=== PATIENT | male | born 1935 | race Caucasian/White ===

== ENCOUNTER 2019-03-07 08:57 | Emergency (ER) | payer OTHER ==
--- OUTSIDE RECORDS SUMMARY | 2019-03-07 09:02 | XMS REPORT ---
:1935 Author Organization [facility] Address [address] [place] [address] Care Team Providers Name Role Phone Unavailable Unavailable Unavailable Payers Payer Name Policy Type Policy Number Effective Date Expiration Date Problems This patient has no known problems. Allergies, Adverse Reactions, Alerts Allergy Allergy Status Severity Reaction(s) Onset Inactive Treating Comments Name Type Date Date Clinician No Known DA Active U 2019-01 Allergies 22 00:00:0 0 Medications This patient has no known medications. Results Test Description Test Time Test Comments Text Results Atomic Results Result Comments GLUCOSE BEDSIDE TESTING 2019-02-25 13:57:00 Test Item Value Reference Range Comments GLUCOSE BEDSIDE TESTING (test code=GLUBED) 155 mg/dL 70-110 GLUCOSE BEDSIDE [id number] 10:46:00 Test Item Value Reference Range Comments GLUCOSE BEDSIDE TESTING (test code=GLUBED) 122 mg/dL 70-110 GLUCOSE BEDSIDE [id number] 08:20:00 Test Item Value Reference Range Comments GLUCOSE BEDSIDE TESTING (test code=GLUBED) 149 mg/dL 70-110 BASIC METABOLIC [id number] 06:18:00 Test Item Value Reference Range Comments SODIUM (test code=NA) 136 mmol/L 134-147 POTASSIUM (test code=K) 4.1 mmol/L 3.4-5.0 CHLORIDE (test code=CL) 98 mmol/L 100-108 CARBON DIOXIDE (test code=CO2) 33 mmol/L 21-32 ANION GAP (test code=GAP) 5.0 GAP calc 4.0-15.0 GLUCOSE (test code=GLU) 117 MG/DL 70-110 BLOOD UREA NITROGEN (test code=BUN) 43 MG/DL 7-18 GLOMERULAR FILTRATION RATE (test code=GFR) 31 estGFR >60 CREATININE (test code=CREAT) 2.2 MG/DL 0.8-1.3 CALCIUM (test code=CA) 8.7 MG/DL 8.5-10.1 [id number] 06:18:00 Test Item Value Reference Range Comments PHOSPHOROUS (test code=PHOS) 3.2 MG/DL 2.5-4.9 [id number] 06:18:00 Test Item Value Reference Range Comments MAGNESIUM (test code=MAG) 2.5 MG/DL 1.8-2.4 HGB [id number] 06:04:00 Test Item Value Reference Range Comments HEMOGLOBIN (test code=HGB) 8.4 G/DL 12.3-15.9 HEMATOCRIT (test code=HCT) 26.8 % 35.8-46.7 GLUCOSE BEDSIDE [id number] 18:27:00 Test Item Value Reference Range Comments GLUCOSE BEDSIDE TESTING (test code=GLUBED) 144 mg/dL 70-110 - XR ABDOMEN 1 [id number] 15:20:00 Name: CHEYENNE MACHADO JR [place] : 1935 Age/S: 83 / M [address] Unit #: [id number] Loc: [place] [address] Phys: Erin Bird MD Acct: [id number] Dis Date: Status: ADM IN PHONE #: [phone] Exam Date: 02/24/2019 1315 FAX #: Reason: CONSTIPATION? EXAMS: CPT: [id number] XR ABDOMEN 1 V 96455 Fluoro Time: DAP (Gy m2): Air Kerma (mGy): EXAMINATION: - XR ABDOMEN 1 V.LOCATION: S 17. HISTORY: CONSTIPATION?. COMPARISON: Abdominal radiographdated 02/14/2019. TECHNIQUE: Single AP view of the abdomen was obtained. FINDINGS: Gastrostomy tube tip is seen in the left upper quadrant. Bowel gas pattern is normal. Multiple pelvic phleboliths are noted. No acute osseous abnormality is seen. IMPRESSION: No acute abdominal abnormality is identified. at 1520 Reported and signed by: Cat Mcgrath M.D. CC: Marybeth Pizano MD; Erin Bird MD PAGE 1 Signed Report Name: CHEYENNE MACHADO JR [place] : 1935 Age/S: 83 / M [address] Unit #: [id number] Loc: [place] [address] Phys: Erin Bird MD Acct: [id number] Dis Date: Status: ADM IN PHONE #: [phone] Exam Date: 02/24/2019 1315 FAX #: Reason : CONSTIPATION? EXAMS: CPT: [id number] XR ABDOMEN 1 V 01882 Fluoro Time : DAP (Gy m2): Air Kerma (mGy): <Continued> Technologist: Indiana Renteria RT(R) Trnscb Date /Time: 02/24/2019 (1520) [id number] Orig Print D/T: S: (1524) PAGE 2 Signed ReportGLUCOSE BEDSIDE [id number] 11:51:00 Test Item Value Reference Range Comments GLUCOSE BEDSIDE TESTING (test code=GLUBED) 108 mg/dL 70-110 GLUCOSE BEDSIDE [id number] 07:50:00 Test Item Value Reference Range Comments GLUCOSE BEDSIDE TESTING (test code=GLUBED) 113 mg/dL 70-110 GLUCOSE BEDSIDE [id number] 17:26:00 Test Item Value Reference Range Comments GLUCOSE BEDSIDE TESTING (test code=GLUBED) 149 mg/dL 70-110 GLUCOSE BEDSIDE [id number] 11:50:00 Test Item Value Reference Range Comments GLUCOSE BEDSIDE TESTING (test code=GLUBED) 187 mg/dL 70-110 GLUCOSE BEDSIDE [id number] 08:44:00 Test Item Value Reference Range Comments GLUCOSE BEDSIDE TESTING (test code=GLUBED) 118 mg/dL 70-110 GLUCOSE BEDSIDE [id number] 17:36:00 Test Item Value Reference Range Comments GLUCOSE BEDSIDE TESTING (test code=GLUBED) 164 mg/dL 70-110 GLUCOSE BEDSIDE [id number] 12:40:00 Test Item Value Reference Range Comments GLUCOSE BEDSIDE TESTING (test code=GLUBED) 146 mg/dL 70-110 GLUCOSE BEDSIDE [id number] 08:06:00 Test Item Value Reference Range Comments GLUCOSE BEDSIDE TESTING (test code=GLUBED) 173 mg/dL 70-110 GLUCOSE BEDSIDE [id number] 06:11:00 Test Item Value Reference Range Comments GLUCOSE BEDSIDE TESTING (test code=GLUBED) 88 mg/dL 70-110 GLUCOSE BEDSIDE [id number] 00:02:00 Test Item Value Reference Range Comments GLUCOSE BEDSIDE TESTING (test code=GLUBED) 111 mg/dL 70-110 GLUCOSE BEDSIDE [id number] 18:27:00 Test Item Value Reference Range Comments GLUCOSE BEDSIDE TESTING (test code=GLUBED) 148 mg/dL 70-110 GLUCOSE BEDSIDE [id number] 05:52:00 Test Item Value Reference Range Comments GLUCOSE BEDSIDE TESTING (test code=GLUBED) 99 mg/dL 70-110 GLUCOSE BEDSIDE [id number] 21:07:00 Test Item Value Reference Range Comments GLUCOSE BEDSIDE TESTING (test code=GLUBED) 147 mg/dL 70-110 GLUCOSE BEDSIDE [id number] 16:45:00 Test Item Value Reference Range Comments GLUCOSE BEDSIDE TESTING (test code=GLUBED) 95 mg/dL 70-110 GLUCOSE BEDSIDE [id number] 13:37:00 Test Item Value Reference Range Comments GLUCOSE BEDSIDE TESTING (test code=GLUBED) 104 mg/dL 70-110 GLUCOSE BEDSIDE [id number] 06:06:00 Test Item Value Reference Range Comments GLUCOSE BEDSIDE TESTING (test code=GLUBED) 124 mg/dL 70-110 GLUCOSE BEDSIDE [id number] 20:49:00 Test Item Value Reference Range Comments GLUCOSE BEDSIDE TESTING (test code=GLUBED) 139 mg/dL 70-110 GLUCOSE BEDSIDE [id number] 16:56:00 Test Item Value Reference Range Comments GLUCOSE BEDSIDE TESTING (test code=GLUBED) 150 mg/dL 70-110 GLUCOSE BEDSIDE [id number] 12:38:00 Test Item Value Reference Range Comments GLUCOSE BEDSIDE TESTING (test code=GLUBED) 116 mg/dL 70-110 GLUCOSE BEDSIDE [id number] 08:10:00 Test Item Value Reference Range Comments GLUCOSE BEDSIDE TESTING (test code=GLUBED) 142 mg/dL 70-110 GLUCOSE BEDSIDE [id number] 21:28:00 Test Item Value Reference Range Comments GLUCOSE BEDSIDE TESTING (test code=GLUBED) 85 mg/dL 70-110 GLUCOSE BEDSIDE [id number] 16:32:00 Test Item Value Reference Range Comments GLUCOSE BEDSIDE TESTING (test code=GLUBED) 158 mg/dL 70-110 GLUCOSE BEDSIDE [id number] 12:21:00 Test Item Value Reference Range Comments GLUCOSE BEDSIDE TESTING (test code=GLUBED) 90 mg/dL 70-110 GLUCOSE BEDSIDE [id number] 08:27:00 Test Item Value Reference Range Comments GLUCOSE BEDSIDE TESTING (test code=GLUBED) 159 mg/dL 70-110 GLUCOSE BEDSIDE [id number] 16:26:00 Test Item Value Reference Range Comments GLUCOSE BEDSIDE TESTING (test code=GLUBED) 195 mg/dL 70-110 GLUCOSE BEDSIDE [id number] 11:20:00 Test Item Value Reference Range Comments GLUCOSE BEDSIDE TESTING (test code=GLUBED) 92 mg/dL 70-110 GLUCOSE BEDSIDE [id number] 07:43:00 Test Item Value Reference Range Comments GLUCOSE BEDSIDE TESTING (test code=GLUBED) 90 mg/dL 70-110 GLUCOSE BEDSIDE [id number] 20:08:00 Test Item Value Reference Range Comments GLUCOSE BEDSIDE TESTING (test code=GLUBED) 143 mg/dL 70-110 GLUCOSE BEDSIDE [id number] 16:41:00 Test Item Value Reference Range Comments GLUCOSE BEDSIDE TESTING (test code=GLUBED) 120 mg/dL 70-110 GLUCOSE BEDSIDE [id number] 12:37:00 Test Item Value Reference Range Comments GLUCOSE BEDSIDE TESTING (test code=GLUBED) 93 mg/dL 70-110 GLUCOSE BEDSIDE [id number] 08:29:00 Test Item Value Reference Range Comments GLUCOSE BEDSIDE TESTING (test code=GLUBED) 98 mg/dL 70-110 GLUCOSE BEDSIDE [id number] 18:03:00 Test Item Value Reference Range Comments GLUCOSE BEDSIDE TESTING (test code=GLUBED) 93 mg/dL 70-110 - XR ABDOMEN 1 [id number] 16:33:00 Name: CARTER SNIDERCHEYENNE [facility] : 1935 Age/S: 83 / M [address] Unit #: [id number] Loc: [place] [address] Phys: Marybeth Pizano MD Acct: [id number] Dis Date: Status: ADM IN PHONE #: [phone] Exam Date: 02/14/2019 1610 FAX #: Reason: ABDOMINAL DISTENSION , INCREASE RISIDUAL FEEDING EXAMS: CPT: [id number] XR ABDOMEN 1 V 64005 Fluoro Time: DAP (Gy m2): Air Kerma (mGy): Location code: B2 KUB Indication: ABDOMINAL DISTENSION, INCREASE RISIDUAL FEEDING FROM PEG Comparison: None. Findings: Cardiomegaly. Organ silhouettes are unremarkable. Gastrostomy tube in place. Intestinal gas pattern is normal. Small contrast in the colon. Disc space narrowing, with moderate spondylosis. No abnormal massesor calcifications seen. Impression: 1. No evidence of acute abdominal pathology. at 1633 Reported and signed by : Get Levin M.D. CC: Marybeth Pizano MD PAGE 1 Signed Report Name: CHEYENNE MACHADO JR [place] : 1935 Age/S: 83 / M [address] Unit #: [id number] Loc: [place] [address] Phys: Marybeth Pizano MD Acct: [id number] Dis Date: Status: ADM IN PHONE #: [phone] Exam Date: 02/14/2019 1610 FAX #: Reason: ABDOMINAL DISTENSION, INCREASE RISIDUAL FEEDING EXAMS: CPT: [id number] XR ABDOMEN 1 V 89330 Fluoro Time: DAP (Gy m2): Air Kerma (mGy): <Continued> Technologist: Paras ReynagaRT(R)(CT); ... Trnscb Date/Time: 02/14/2019 (7323) [email or web address] Orig Print D/T: S: 02/14/2019 (0966) PAGE 2 Signed ReportGLUCOSE BEDSIDE [id number] 11:34 :00 Test Item Value Reference Range Comments GLUCOSE BEDSIDE TESTING (test code=GLUBED) 113 mg/dL 70-110 GLUCOSE BEDSIDE [id number] 08:16:00 Test Item Value Reference Range Comments GLUCOSE BEDSIDE TESTING (test code=GLUBED) 142 mg/dL 70-110 GLUCOSE BEDSIDE [id number] 06:15:00 Test Item Value Reference Range Comments GLUCOSE BEDSIDE TESTING (test code=GLUBED) 95 mg/dL 70-110 BASIC METABOLIC [id number] 06:06:00 Test Item Value Reference Range Comments SODIUM (test code=NA) 138 mmol/L 134-147 POTASSIUM (test code=K) 4.6 mmol/L 3.4-5.0 CHLORIDE (test code=CL) 102 mmol/L 100-108 CARBON DIOXIDE (test code=CO2) 32 mmol/L 21-32 ANION GAP (test code=GAP) 4.0 GAP calc 4.0-15.0 GLUCOSE (test code=GLU) 92 MG/DL 70-110 BLOOD UREA NITROGEN (test code=BUN) 48 MG/DL 7-18 GLOMERULAR FILTRATION RATE (test code=GFR) 32 estGFR >60 CREATININE (test code=CREAT) 2.1 MG/DL 0.8-1.3 CALCIUM (test code=CA) 9.4 MG/DL 8.5-10.1 [id number] 06:06:00 Test Item Value Reference Range Comments PHOSPHOROUS (test code=PHOS) 3.6 MG/DL 2.5-4.9 BASIC METABOLIC [id number] 06:06:00 Test Item Value Reference Range Comments SODIUM (test code=NA) 138 mmol/L 134-147 POTASSIUM (test code=K) 4.6 mmol/L 3.4-5.0 CHLORIDE (test code=CL) 102 mmol/L 100-108 CARBON DIOXIDE (test code=CO2) 32 mmol/L 21-32 ANION GAP (test code=GAP) 4.0 GAP calc 4.0-15.0 GLUCOSE (test code=GLU) 92 MG/DL 70-110 BLOOD UREA NITROGEN (test code=BUN) 48 MG/DL 7-18 GLOMERULAR FILTRATION RATE (test code=GFR) 32 estGFR >60 CREATININE (test code=CREAT) 2.1 MG/DL 0.8-1.3 CALCIUM (test code=CA) 9.4 MG/DL 8.5-10.1 [id number] 06:06:00 Test Item Value Reference Range Comments PHOSPHOROUS (test code=PHOS) 3.6 MG/DL 2.5-4.9 GLUCOSE BEDSIDE [id number] 20:39:00 Test Item Value Reference Range Comments GLUCOSE BEDSIDE TESTING (test code=GLUBED) 165 mg/dL 70-110 GLUCOSE BEDSIDE [id number] 16:26:00 Test Item Value Reference Range Comments GLUCOSE BEDSIDE TESTING (test code=GLUBED) 110 mg/dL 70-110 GLUCOSE BEDSIDE [id number] 11:26:00 Test Item Value Reference Range Comments GLUCOSE BEDSIDE TESTING (test code=GLUBED) 148 mg/dL 70-110 GLUCOSE BEDSIDE [id number] 08:22:00 Test Item Value Reference Range Comments GLUCOSE BEDSIDE TESTING (test code=GLUBED) 130 mg/dL 70-110 GLUCOSE BEDSIDE [id number] 03:19:00 Test Item Value Reference Range Comments GLUCOSE BEDSIDE TESTING (test code=GLUBED) 90 mg/dL 70-110 GLUCOSE BEDSIDE [id number] 11:51:00 Test Item Value Reference Range Comments GLUCOSE BEDSIDE TESTING (test code=GLUBED) 93 mg/dL 70-110 BASIC METABOLIC [id number] 11:10:00 Test Item Value Reference Range Comments SODIUM (test code=NA) 136 mmol/L 134-147 POTASSIUM (test code=K) 4.9 mmol/L 3.4-5.0 CHLORIDE (test code=CL) 102 mmol/L 100-108 CARBON DIOXIDE (test code=CO2) 30 mmol/L 21-32 ANION GAP (test code=GAP) 4.0 GAP calc 4.0-15.0 GLUCOSE (test code=GLU) 113 MG/DL 70-110 BLOOD UREA NITROGEN (test code=BUN) 53 MG/DL 7-18 GLOMERULAR FILTRATION RATE (test code=GFR) 29 estGFR >60 CREATININE (test code=CREAT) 2.3 MG/DL 0.8-1.3 CALCIUM (test code=CA) 9.3 MG/DL 8.5-10.1 GLUCOSE BEDSIDE [id number] 03:09:00 Test Item Value Reference Range Comments GLUCOSE BEDSIDE TESTING (test code=GLUBED) 87 mg/dL 70-110 GLUCOSE BEDSIDE [id number] 08:02:00 Test Item Value Reference Range Comments GLUCOSE BEDSIDE TESTING (test code=GLUBED) 158 mg/dL 70-110 GLUCOSE BEDSIDE [id number] 08:01:00 Test Item Value Reference Range Comments GLUCOSE BEDSIDE TESTING (test code=GLUBED) 163 mg/dL 70-110 GLUCOSE BEDSIDE [id number] 23:54:00 Test Item Value Reference Range Comments GLUCOSE BEDSIDE TESTING (test code=GLUBED) 135 mg/dL 70-110 GLUCOSE BEDSIDE [id number] 16:42:00 Test Item Value Reference Range Comments GLUCOSE BEDSIDE TESTING (test code=GLUBED) 145 mg/dL 70-110 GLUCOSE BEDSIDE [id number] 08:24:00 Test Item Value Reference Range Comments GLUCOSE BEDSIDE TESTING (test code=GLUBED) 137 mg/dL 70-110 GLUCOSE BEDSIDE [id number] 09:16:00 Test Item Value Reference Range Comments GLUCOSE BEDSIDE TESTING (test code=GLUBED) 128 mg/dL 70-110 BASIC METABOLIC [id number] 06:53:00 Test Item Value Reference Range Comments SODIUM (test code=NA) 143 mmol/L 134-147 POTASSIUM (test code=K) 4.2 mmol/L 3.4-5.0 CHLORIDE (test code=CL) 112 mmol/L 100-108 CARBON DIOXIDE (test code=CO2) 24 mmol/L 21-32 ANION GAP (test code=GAP) 7.0 GAP calc 4.0-15.0 GLUCOSE (test code=GLU) 134 MG/DL 70-110 BLOOD UREA NITROGEN (test code=BUN) 36 MG/DL 7-18 GLOMERULAR FILTRATION RATE (test code=GFR) 32 estGFR >60 CREATININE (test code=CREAT) 2.1 MG/DL 0.8-1.3 CALCIUM (test code=CA) 8.8 MG/DL 8.5-10.1 GLUCOSE BEDSIDE [id number] 01:53:00 Test Item Value Reference Range Comments GLUCOSE BEDSIDE TESTING (test code=GLUBED) 132 mg/dL 70-110 - INS GASTRO TUBE [id number] 15:31:00 Name: CHEYENNE MACHADO JR [facility] : 1935 Age/S: 83 / M [address] Unit #: [id number] Loc: [place] [address] Phys: Cat Mcgrath MD Acct: [id number] Dis Date: Status : ADM IN PHONE #: [phone] Exam Date: 02/06/2019 1520 FAX #: Reason: MEDICATION EXAMS: CPT: [id number] INS GASTRO TUBE PERC 19594 Fluoro Time: 4:11 DAP (Gy m2): 10.69 Air Kerma (mGy): 45 EXAMINATION: PERCUTANEOUS GASTROSTOMY CATHETER PLACEMENT. LOCATION: S 17. HISTORY: CVA and dysphagia. SEDATION: The patient did not require conscious sedation for the procedure. He received fentanyl 25 mg IV. RADIATION DOSE: Total reference air kerma 45 mGy. ANTIBIOTICS: Yes. The patient was given Cefazolin 1 g IV. TECHNIQUE: The risks, benefits, and alternatives were discussed and informed consent was obtained. Prior to beginning the procedure, Cannon Protocol was used to confirm the patient' s identity and planned procedure. Maximum sterile barriers including cap , mask, hand hygiene, sterile gloves, sterile gown, large sterile drape and cutaneous antisepsis were used. The skin over the stomach was sterilely prepped, draped, and infiltrated with lidocaine and 1 mg of intravenous glucagon was administered. An NG tube was advanced into the stomach under fluoroscopy and was then used to inject air to distend the stomach. Fluoroscopy was used to determine a safe tract to the stomach. The stomach was accessed under fluoroscopic guidance and three gastropexybuttons were placed. The stomach was then accessed with an 18-gauge needle. The tractwas dilated over a guidewire and an 18 American TANIYA gastrostomy catheter was advanced intothe stomach through a peel-away sheath. The catheter was secured to the skin and connected togravity drainage. ESTIMATED BLOOD LOSS: Less than 30 milliliters. COMPLICATIONS: None. DISCHARGED TO: Inpatient unit. FINDINGS: Final fluoroscopic images demonstrate the gastrostomy catheter with its tip in the body of the stomach. No complications are identified. IMPRESSION: Successful placement of a gastrostomy catheter with gastropexy. PAGE 1 Signed Report (CONTINUED) Name: [facility] [place] : 6Age/ S: 83 / M [address] [facility] Unit #: [id number] Loc: [place] [address] Phys: Cat Mcgrath MD Acct: [id number] Dis Date: Status: ADM IN PHONE#: [phone] Exam Date: 02/06/2019 1520 FAX #: Reason: MEDICATION EXAMS: CPT: [id number] INS GASTRO TUBE PERC 19134 Fluoro Time:4:11 DAP (Gy m2): 10.69 Air Kerma (mGy): 45 <Continued> PLAN:The gastrostomy catheter will remain to gravity drainage overnight. It may be used for administration of liquid medications. The tube should be capped after administration of the medication for an hour and then reconnected to gravity drainage. The output should be recorded every shift. The patient will be examined in the morning prior to clearing the catheter for usage for tube feeds. Feedings will likely start in the day and be advanced to goal before discharge. The gastropexy buttons will fall off on their own in approximately 2weeks. at 1531 Reported and signed by: Cat Mcgrath M.D. CC: Marybeth Pizano MD; Cat Mcgrath MD PAGE 2 Signed Report Name: CHEYENNE MACHADO JR MARTI [place] : 1935 Age/S: 83 / M [address] Unit # : [id number] Loc: [place] [address] Phys: Cat Mcgrath MD Acct: [id number] Dis Date: Status: ADM IN PHONE #: [phone] Exam Date: 02/06/2019 1520 FAX #: Reason: MEDICATION EXAMS: CPT: [id number] INS GASTRO TUBE PERC 82616 Fluoro Time: 4:11 DAP ( Gy m2): 10.69 Air Kerma (mGy): 45 <Continued> Technologist: RT Elvin(R) Trnscb Date/Time: 02/06/2019 (1531) [id number] PAGE 3 Signed Report - INS GASTRO TUBE [id number] 15:31:00 Name: CHEYENNE MACHADO JR MARTI [place] : 1935 Age/S: 83 / M [address] Unit #: [id number] Loc: [place] [address] Phys: Cat Mcgrath MD Acct: [id number] Dis Date: Status : ADM IN PHONE #: [phone] Exam Date: 02/06/2019 1520 FAX #: Reason: MEDICATION EXAMS: CPT: [id number] INS GASTRO TUBE PERC 87296 Fluoro Time: 4:11 DAP (Gy m2): 10.69 Air Kerma (mGy): 45 EXAMINATION: PERCUTANEOUS GASTROSTOMY CATHETER PLACEMENT. LOCATION: S 17. HISTORY: CVA and dysphagia. SEDATION: The patient did not require conscious sedation for the procedure. He received fentanyl 25 mg IV. RADIATION DOSE: Total reference air kerma 45 mGy. ANTIBIOTICS: Yes. The patient was given Cefazolin 1 g IV. TECHNIQUE: The risks, benefits, and alternatives were discussed and informed consent was obtained. Prior to beginning the procedure, Cannon Protocol was used to confirm the patient' s identity and planned procedure. Maximum sterile barriers including cap , mask, hand hygiene, sterile gloves, sterile gown, large sterile drape and cutaneous antisepsis were used. The skin over the stomach was sterilely prepped, draped, and infiltrated with lidocaine and 1 mg of intravenous glucagon was administered. An NG tube was advanced into the stomach under fluoroscopy and was then used to inject air to distend the stomach. Fluoroscopy was used to determine a safe tract to the stomach. The stomach was accessed under fluoroscopic guidance and three gastropexybuttons were placed. The stomach was then accessed with an 18-gauge needle. The tractwas dilated over a guidewire and an 18 American TANIYA gastrostomy catheter was advanced intothe stomach through a peel-away sheath. The catheter was secured to the skin and connected togravity drainage. ESTIMATED BLOOD LOSS: Less than 30 milliliters. COMPLICATIONS: None. DISCHARGED TO: Inpatient unit. FINDINGS: Final fluoroscopic images demonstrate the gastrostomy catheter with its tip in the body of the stomach. No complications are identified. IMPRESSION: Successful placement of a gastrostomy catheter with gastropexy. PAGE 1 Signed Report (CONTINUED) Name: CHEYENNE [facility]O [facility] : 6Age/ S: 83 / M [address] [facility] Unit #: [id number] Loc: [place] [address] Phys: Cat Mcgrath MD Acct: [id number] Dis Date: Status: ADM IN PHONE#: [phone] Exam Date: 02/06/2019 1520 FAX #: Reason: MEDICATION EXAMS: CPT: [id number] INS GASTRO TUBE PERC 06167 Fluoro Time:4:11 DAP (Gy m2): 10.69 Air Kerma (mGy): 45 <Continued> PLAN:The gastrostomy catheter will remain to gravity drainage overnight. It may be used for administration of liquid medications. The tube should be capped after administration of the medication for an hour and then reconnected to gravity drainage. The output should be recorded every shift. The patient will be examined in the morning prior to clearing the catheter for usage for tube feeds. Feedings will likely start in the day and be advanced to goal before discharge. The gastropexy buttons will fall off on their own in approximately 2weeks. at 1531 Reported and signed by: Cat Mcgrath M.D. CC: Marybeth Pizano MD; Cat Mcgrath MD PAGE 2 Signed Report Name: CARTER SNIDERCHEYENNE [place] : 1935 Age/S: 83 /M [address] Unit #: [id number] Loc: [place] [address] Phys: Cat Mcgrath MD Acct: [id number] Dis Date: Status: ADM IN PHONE #: [phone] Exam Date: 02/06/2019 1520 FAX #: Reason: MEDICATION EXAMS: CPT: [id number] INS GASTRO TUBE PERC 45469 Fluoro Time: 4:11 DAP (Gy m2): 10.69 Air Kerma (mGy): 45 <Continued> Technologist : RT Elvin(R) Trnscb Date/Time: 02/06/2019 (1531) [email or web address] Orig Print D/T: S: 02/06/2019 (1534) PAGE 3 Signed Report- [facility] [id number] 15:22:00 Name: DWAIN MACHADO JRSesar [place] : 1935 Age/S: 83 / M [address] Unit #: [id number] Loc: [place] [address] Phys: Marybeth Pizano MD Acct: [id number] Dis Date: Status : ADM IN PHONE #: [phone] Exam Date: 02/06/2019 1441 FAX #: Reason: IV access EXAMS: CPT: [id number] US GUIDANCE VASC ACCESS 68295 EXAMINATION: NON-TUNNELED PERIPHERAL VENOUS CATHETER PLACEMENT. LOCATION: S 17. HISTORY: Dysphagia and lack of IV access. SEDATION: The patient did not require conscious sedation for the procedure. TECHNIQUE: The risks, benefits, and alternatives were discussed and informed consent was obtained. Prior to beginning the procedure, UniversalProtocol was used to confirm the patient's identity and planned procedure. Sterile barriers including cap, mask, hand hygiene, sterile gloves, sterile drape and cutaneous antisepsis were used. The skin over the left brachial vein was sterilely prepped, draped, and infiltrated with lidocaine. Prior to the procedure, the target vessel was evaluated by ultrasound. An image of the patent vessel was recorded and saved to PACS. After sterile prep, this vessel was accessed with a micropuncture needle using real-time ultrasound guidance. A short 10 cm 5 American catheter was then passed into the left arm over a guidewire. The catheter was flushed and secured in place. A sterile dressing was applied. ESTIMATED BLOOD LOSS: Less than 5 milliliters. COMPLICATIONS: None. DISCHARGED TO: Inpatient unit. FINDINGS: Ultrasound demonstrates a patent left brachial vein. IMPRESSION: Successful non-tunneled peripheral venous catheter placementvia the left brachial vein. PLAN: The catheter is ready for immediate use. When treatment is completed, this catheter can be removed at the bedside according to standard hospital protocol. PAGE 1 Signed Report ( CONTINUED) Name: CHEYENNE MACHADO JR [facility] Campus : 1935 Age/S: 83 / M [address] [facility] Unit #: [id number] Loc: [place] [address] Phys : Marybeth Pizano MD Acct: [id number] Dis Date: Status: ADM IN PHONE #: [phone] Exam Date: 02/06/2019 1441 FAX #: Reason: IV access EXAMS:CPT: [id number] US GUIDANCE VASC ACCESS [id number] <Continued> at 1522 Reported and signed by: Cat Mcgrath M.D. CC: Marybeth Romeo Technologist: Tierra Jo, RT(R),WILL(AB) Trnscb Date/Time: 02/06/2019 (1522) SurinderPR7 PAGE 2 Signed Report Name: CHEYENNE MACHADO JR : 1935 Age/S: 83 / M [address] [address] Unit #: [id number] Loc: [place] [address] Phys: Marybeth Pizano MD Acct: [id number] Dis Date: Status: ADM IN PHONE #: [phone] Exam Date: 02/06/2019 1441 FAX #: Reason: IV access EXAMS: CPT: [id number] US GUIDANCE VASC ACCESS 75549 <Continued> Orig Print D/T: S: 02/06/2019 (6343) Probe: PAGE 3 Signed ReportGLUCOSE BEDSIDE [id number] 12:29:00 Test Item Value Reference Range Comments GLUCOSE BEDSIDE TESTING (test code=GLUBED) 116 mg/dL 70-110 GLUCOSE BEDSIDE [id number] 08:06:00 Test Item Value Reference Range Comments GLUCOSE BEDSIDE TESTING (test code=GLUBED) 144 mg/dL 70-110 BASIC METABOLIC [id number] 07:28:00 Test Item Value Reference Range Comments SODIUM (test code=NA) 142 mmol/L 134-147 POTASSIUM (test code=K) 4.4 mmol/L 3.4-5.0 CHLORIDE (test code=CL) 113 mmol/L 100-108 CARBON DIOXIDE (test code=CO2) 20 mmol/L 21-32 ANION GAP (test code=GAP) 9.0 GAP calc 4.0-15.0 GLUCOSE (test code=GLU) 153 MG/DL 70-110 BLOOD UREA NITROGEN (test code=BUN) 35 MG/DL 7-18 GLOMERULAR FILTRATION RATE (test code=GFR) 31 estGFR >60 CREATININE (test code=CREAT) 2.2 MG/DL 0.8-1.3 CALCIUM (test code=CA) 8.8 MG/DL 8.5-10.1 [id number] 07:28:00 Test Item Value Reference Range Comments PHOSPHOROUS (test code=PHOS) 3.9 MG/DL 2.5-4.9 [id number] 07:28:00 Test Item Value Reference Range Comments MAGNESIUM (test code=MAG) 2.1 MG/DL 1.8-2.4 GLUCOSE BEDSIDE [id number] 17:09:00 Test Item Value Reference Range Comments GLUCOSE BEDSIDE TESTING (test code=GLUBED) 152 mg/dL 70-110 GLUCOSE BEDSIDE [id number] 12:31:00 Test Item Value Reference Range Comments GLUCOSE BEDSIDE TESTING (test code=GLUBED) 152 mg/dL 70-110 GLUCOSE BEDSIDE [id number] 08:26:00 Test Item Value Reference Range Comments GLUCOSE BEDSIDE TESTING (test code=GLUBED) 156 mg/dL 70-110 BASIC METABOLIC [id number] 07:13:00 Test Item Value Reference Range Comments SODIUM (test code=NA) 143 mmol/L 134-147 POTASSIUM (test code=K) 4.3 mmol/L 3.4-5.0 CHLORIDE (test code=CL) 112 mmol/L 100-108 CARBON DIOXIDE (test code=CO2) 21 mmol/L 21-32 ANION GAP (test code=GAP) 10.0 GAP calc 4.0-15.0 GLUCOSE (test code=GLU) 146 MG/DL 70-110 BLOOD UREA NITROGEN (test code=BUN) 36 MG/DL 7-18 GLOMERULAR FILTRATION RATE (test code=GFR) 29 estGFR >60 CREATININE (test code=CREAT) 2.3 MG/DL 0.8-1.3 CALCIUM (test code=CA) 9.0 MG/DL 8.5-10.1 CBC W/AUTO [id number] 06:40:00 Test Item Value Reference Range Comments WHITE BLOOD CELL (test 9.0 K/mm3 3.5-11.0 code=WBC) RED BLOOD CELL (test code=RBC) 2.62 M/mm3 4.70-6.10 HEMOGLOBIN (test code=HGB) 8.7 G/DL 12.3-15.9 HEMATOCRIT (test code=HCT) 28.3 % 35.8-46.7 MEAN CELL VOLUME (test 108.0 Fl 86.3-98.9 code=MCV) MEAN CELL HGB (test code=MCH) 33.2 pg 28.9-34.4 MEAN CELL HGB CONCETRATION 30.7 G/DL 32.1-34.5 (test code=MCHC) RED CELL DISTRIBUTION WIDTH 13.5 SD 11.5-14.5 (test code=RDW) PLATELET COUNT (test code=PLT) 277.0 K/mm3 150-450 MEAN PLATELET VOLUME (test 10.50 fL 7.0-9.6 code=MPV) NEUTROPHIL % (test code=NT%) 82.8 % 40-76 LYMPHOCYTE % (test code=LY%) 9.0 % 20.5-51.1 MONOCYTE % (test code=MO%) 6.7 % 1.7-9.3 EOSINOPHIL % (test code=EO%) 0.9 % 0.0-6.0 BASOPHIL % (test code=BA%) 0.6 % 0.0-2.0 NEUTROPHIL # (test code=NT#) 7.42 K/mm3 1.8-7.6 LYMPHOCYTE # (test code=LY#) 0.8 K/mm3 0.6-3.0 MONOCYTE # (test code=MO#) 0.6 K/mm3 0.2-1.5 EOSINOPHIL # (test code=EO#) 0.1 K/mm3 0.0-0.4 BASOPHIL # (test code=BA#) 0.1 K/mm3 0.0-0.2 MANUAL DIFF REQUIRED (test NO DIFF/SCN CRITERIA SLIDE REVIEW CONSISTANT code=MDIFF) WITH AUTO DIFFERENTIAL. BASIC METABOLIC [id number] 06:35:00 Test Item Value Reference Range Comments SODIUM (test code=NA) mmol/L 134-147 POTASSIUM (test code=K) mmol/L 3.4-5.0 CHLORIDE (test code=CL) mmol/L 100-108 CARBON DIOXIDE (test code=CO2) 21 mmol/L 21-32 ANION GAP (test code=GAP) GAP calc 4.0-15.0 GLUCOSE (test code=GLU) 146 MG/DL 70-110 BLOOD UREA NITROGEN (test code=BUN) 36 MG/DL 7-18 GLOMERULAR FILTRATION RATE (test code=GFR) estGFR >60 CREATININE (test code=CREAT) MG/DL 0.8-1.3 CALCIUM (test code=CA) 9.0 MG/DL 8.5-10.1 PROTHROMBIN [id number] 06:29:00 Test Item Value Reference Range Comments PT PATIENT (test code=PTP) 14.9 SECONDS 9.3-12.9 INTERNATIONAL NORMAL RATIO (test code=INR) 1.29 INR Unit 0.8-1.2 CBC W/AUTO [id number] 06:24:00 Test Item Value Reference Range Comments WHITE BLOOD CELL (test code=WBC) 9.0 K/mm3 3.5-11.0 RED BLOOD CELL (test code=RBC) 2.62 M/mm3 4.70-6.10 HEMOGLOBIN (test code=HGB) 8.7 G/DL 12.3-15.9 HEMATOCRIT (test code=HCT) 28.3 % 35.8-46.7 MEAN CELL VOLUME (test code=MCV) 108.0 Fl 86.3-98.9 MEAN CELL HGB (test code=MCH) 33.2 pg 28.9-34.4 MEAN CELL HGB CONCETRATION (test code=MCHC) 30.7 G/DL 32.1-34.5 RED CELL DISTRIBUTION WIDTH (test code=RDW) 13.5 SD 11.5-14.5 PLATELET COUNT (test code=PLT) 277.0 K/mm3 150-450 MEAN PLATELET VOLUME (test code=MPV) 10.50 fL 7.0-9.6 NEUTROPHIL % (test code=NT%) % 40-76 LYMPHOCYTE % (test code=LY%) % 20.5-51.1 MONOCYTE % (test code=MO%) % 1.7-9.3 EOSINOPHIL % (test code=EO%) % 0.0-6.0 BASOPHIL % (test code=BA%) % 0.0-2.0 NEUTROPHIL # (test code=NT#) K/mm3 1.8-7.6 LYMPHOCYTE # (test code=LY#) K/mm3 0.6-3.0 MONOCYTE # (test code=MO#) K/mm3 0.2-1.5 EOSINOPHIL # (test code=EO#) K/mm3 0.0-0.4 BASOPHIL # (test code=BA#) K/mm3 0.0-0.2 MANUAL DIFF REQUIRED (test code=MDIFF) DIFF/SCN CRITERIA UA RFLX MICR CULT IF [id number] 01:25:00 Test Item Value Reference Range Comments UA COLOR (test code=COLU) YELLOW discript YEL/STRAW UA APPEARANCE (test code=APPU) CLEAR discript CLEAR UA GLUCOSE DIPSTICK (test code=DGLUU) NEGATIVE mg/dL NEG UA BILIRUBIN DIPSTICK (test code=BILU) NEGATIVE mg/dL NEG UA KETONE DIPSTICK (test code=KETU) NEGATIVE mg/dL NEG UA SPECIFIC GRAVITY (test code=SGU) >=1.030 SG 1.005-1.030 UA BLOOD DIPSTICK (test code=VENECIA) TRACE mg/DL NEG UA PH DIPSTICK (test code=BOB) 5.5 pH UNITS 5.0-7.0 UA PROTEIN DIPSTICK (test code=PROU) 3+ mg/dL NEG UA UROBILINIOGEN DIPSTICK (test 0.2 mg/dL <2.0 code=URO) UA NITRITE DIPSTICK (test code=ISRAEL) NEGATIVE SCREEN NEG UA LEUKOCYTE ESTERASE DIPSTICK (test NEGATIVE Leuk/mcL NEGATIVE code=LEUU) UA WBC (test code=WBCU) 1-3 #WBC/HPF 0-3 UA RBC (test code=RBCU) 1-3 #RBC/HPF 0-3 UA AMORPHOUS SEDIMENT (test code=AMORU) 2+ NONE SEEN UA CULTURE NEEDED? (test code=UACULT) NO, WBC<10 Criteria Culture CHK SOURCE OF URINE: STRAIGHT CATHETERIndication for culture: Delirium-if no other srcUA RFLX MICR CULT IF [id number] 01:22:00 Test Item Value Reference Range Comments UA COLOR (test code=COLU) YELLOW discript YEL/STRAW UA APPEARANCE (test code=APPU) CLEAR discript CLEAR UA GLUCOSE DIPSTICK (test code=DGLUU) NEGATIVE mg/dL NEG UA BILIRUBIN DIPSTICK (test code=BILU) NEGATIVE mg/dL NEG UA KETONE DIPSTICK (test code=KETU) NEGATIVE mg/dL NEG UA SPECIFIC GRAVITY (test code=SGU) >=1.030 SG 1.005-1.030 UA BLOOD DIPSTICK (test code=VENECIA) TRACE mg/DL NEG UA PH DIPSTICK (test code=BOB) 5.5 pH UNITS 5.0-7.0 UA PROTEIN DIPSTICK (test code=PROU) 3+ mg/dL NEG UA UROBILINIOGEN DIPSTICK (test code=URO) 0.2 mg/dL <2.0 UA NITRITE DIPSTICK (test code=ISRAEL) NEGATIVE SCREEN NEG UA LEUKOCYTE ESTERASE DIPSTICK (test NEGATIVE Leuk/mcL NEGATIVE code=LEUU) UA CULTURE NEEDED? (test code=UACULT) Criteria Culture CHK SOURCE OF URINE: STRAIGHT CATHETERIndication for culture: Delirium-if no other src- CT ABD PELVIS W/O [id number] 17:12:00 Name: CHEYENNE MACHADO JR [facility] : 1935 Age/S: 83 / M [address] [address] Unit #: [id number] Loc: [place] [address] Phys: Angeles Vogt MD Acct: [id number] Dis Date: Status: ADM IN PHONE #: [phone] Exam Date: 02/04/2019 1701 FAX #: Reason: PEG TUBE PREPARATION. EXAMS: CPT: [id number] CT ABD PELVIS W/O CONT 94382 HISTORY: PEG TUBE PREPARATION. EXAM: CT abdomen and pelvis without IV contrast. Location code: S17 TECHNIQUE:Contrast - No IV contrast was given, oral contrast was given Noncontrast phase - abdomen and pelvis including all of kidneys Reconstructions - coronal and sagittal planes One or more of the following dose reduction techniques were used: Automated exposure control , adjustment of the mA and/or kV according to patient size, and/or utilization of iterative reconstruction technique. COMPARISON: None FINDINGS: Statements: Lack of intravenous contrast compromises evaluation of abdominopelvic organs and vasculature. Lack of oral contrast compromises evaluation of bowel. Evaluation is further limited by motion artifact in the mid abdomen and arms down by side. Thoracic: There are small, bilateral pleural effusions, right greater than left with associated bilateral lower lobe airspace disease. A 1.1 cm calcified granuloma is present in the right middle lobe (image 8, series 2). There is mild to moderate cardiomegaly and scattered coronary artery calcifications. Trace pericardial fluid is present. No significant pericardial effusion. Hepatobiliary: The liver is normal without focal lesion. There is a dominant high density 2.4 cm stone present within the gallbladder. No surrounding wall thickening or inflammatory changes are identified. No biliary dilation. Pancreas: Normal. Spleen: Normal. Adrenals: Mild bilateral adrenal thickening without discrete nodule or mass seen, nonspecific but may be secondary to hyperplasia. Genitourinary: The kidneys are normal in size and contour without evidence of nephrolithiasis or hydronephrosis. There is a 1.7 cm hyperdense structure in the upper pole of the left kidney posteriorly (image 30, series 2), measuring approximately 7 the Hounsfield units, PAGE 1 Signed Report (CONTINUED) Name: CHEYENNE MACHADO JR : 1935 Age/S: 83 / M [address] [address] Unit #: [id number] Loc: [place] [address] Phys: Angeles Vogt MD Acct: [id number] Dis Date: Status: ADM IN PHONE #: [phone] Exam Date: 2018 1701 FAX #: Reason: PEG TUBE PREPARATION. EXAMS: CPT: [id number] CT ABD PELVIS W/O CONT 50342 <Continued> consistent with hyperdense cysts. No suspicious renal mass seen. Urinary bladder is markedly distended but grossly normal. Reproductive organs are unremarkable. Gastrointestinal: The stomach appears clear of the left hepatic lobe and colon anteriorly, in preparation for gastrostomy tube placement. No bowel obstruction or perienteric inflammation. Mild high density contrast material is present within loops of small bowel in the left mid abdomen, likely from recent barium swallow study performed earlier today. There is a moderate to large volume of stool overlying the rectum. Vascular: Heavy atherosclerotic calcifications of the abdominal aorta and all of its distal branch vessels. No evidence of aortic aneurysm. Lymphatics: No enlarged lymph nodes by CT size criteria. Bones/Soft Tissues: Moderate, multilevel degenerative changes of the spine are noted. No definite acute osseous fracture, although evaluation is limited due to motion artifact. No significant soft tissue abnormality. Peritoneum/Other: No extraluminal air. No extraluminal fluid. IMPRESSION: Limited evaluation dueto motion artifact. 1. No acute abdominopelvic process. Normal anatomic positioning of major abdominal organs and preparation for gastrostomy tube placement. 2. Smallbilateral pleural effusions with associated bilateral lower lobe airspace disease likely atelectasis. Superimposed pneumonia not entirely excluded. 3. Cholelithiasis without CT evidence of acute cholecystitis. at 1712 * * Reported and signed by: Angeles Vogt M.D. CC: Marybeth Pizano MD; Angeles Vogt MD Technologist:RENEE DOBBINS, RT(R)(CT)(MR) CTDI: DLP: Trnscb Date/Time: 02/04/2019 (1712) t.SDR.KW9 Orig Print D/T: S: 02/04/2019 (5565) PAGE 2 Signed Report- XR SWLW FUNC W/C [id number] 15:31:00 Name : CARTER SNIDERCHEYENNE [facility] : Age/S: 83 / M [address] Unit #: [id number] Loc: [place] [address] Phys: Marybeth Pizano MD Acct: [id number] Dis Date: Status: ADM IN PHONE #: [phone] Exam Date: 02/04/2019 1400 FAX #: Reason: SPEECH EVAL EXAMS: CPT: [id number] XR SWLW FUNC W/C V 78439 Fluoro Time: 60 DAP (Gy m2): Air Kerma (mGy): EXAM: - XR SWLW FUNC W/C V HISTORY: 83 years old Male presents for SPEECH EVAL TECHNIQUE: A video swallowing exam with fluoroscopy was performed in conjunction with Speech Pathology. Multiple barium consistencieswere administered under intermittent fluoroscopic evaluation. COMPARISON: None Fluoroscopy time: 60 seconds. Cumulative dose : 1.24 mGy FINDINGS: There was laryngeal penetration and silent aspiration into both thin liquid barium and barium-coated honey thickened nectar. Some tracheal clearance of barium material with coughing and swallowing when instructed. Given this, no additional barium- consistencies were administered. IMPRESSION: Silent aspiration of both thin liquid barium and honey thickened nectar. Please see separate report by Speech Pathology for additional findings and recommendations of the Speech Therapist. FOLLOW-UP RECOMMENDATIONS: Per clinical team. at 1531 Reported and signed by: Angeles Vogt M.D. CC: Marybeth Pizano MD PAGE 1 Signed Report Name: PADMINI MACHADO JR : 1935 Age/S: 83 / M [address] [address] Unit #: [id number] Loc: [place] [address] Phys: Jose Alejandro Pizano Acct: [id number] Dis Date: Status: ADM IN PHONE #: [phone] Exam Date: 02/04/2019 1400 FAX #: Reason: SPEECH EVALEXAMS: CPT: [id number] XR SWLW FUNC W/C V 08852 Fluoro Time: 60 DAP (Gy m2): Air Kerma (mGy) : <Continued> Technologist: Beckie Linda RT(R) Trnscb Date/Time: 02/04/2019 (6301) [id number] Orig Print D/T: S: 02/04/2019 (2382) PAGE 2 Signed ReportGLUCOSE BEDSIDE [id number] 11:55:00 Test Item Value Reference Range Comments GLUCOSE BEDSIDE TESTING (test code=GLUBED) 100 mg/dL 70-110 VANCOMYCIN [id number] 10:10:00 Test Item Value Reference Range Comments VANCOMYCIN TROUGH (test code=VANCT) 18.3 mcG/ML 10-20 GLUCOSE BEDSIDE [id number] 08:00:00 Test Item Value Reference Range Comments GLUCOSE BEDSIDE TESTING (test code=GLUBED) 88 mg/dL 70-110 GLUCOSE BEDSIDE [id number] 05:58:00 Test Item Value Reference Range Comments GLUCOSE BEDSIDE TESTING (test code=GLUBED) 94 mg/dL 70-110 - XR CHEST 1 [id number] 21:59:00 Name: CHEYENNE MACHADO JR : 1935 Age/S: 83 / M [address] [address] Unit #: [id number] Loc: [place] [address] Phys: Concha Kc MD Acct: [id number] Dis Date: Status: ADM IN PHONE #: [phone] Exam Date: 02/03/2019 2158 FAX #: Reason: R/O ASPIRATION EXAMS: CPT: [id number] XR CHEST 1 V 42372 Fluoro Time: DAP (Gy m2): Air Kerma (mGy): LOCATION: T18 EXAM: CHEST 1 VIEW INDICATION: R/O ASPIRATION COMPARISON: Chest x-ray January 31, 2019 TECHNIQUE: AP chest radiograph. FINDINGS: Diffuse bilateral airspace opacity again noted without significant change. NG tube removed. No pleural effusion. Calcification of the aorta. Heart is normal in size. Bones and peripheral soft tissues are unchanged. IMPRESSION: Diffuse bilateral airspace opacity without significant change. at 2159 Reported and signed by: Seth Mendoza M.D. CC: Marybeth Pizano MD; Kymberly BARRETO; Concha Kc MD PAGE 1 Signed Report Name: CHEYENNE MAHCADO JR : 1935 Age/S: 83 / M [address] [address] Unit #: [id number] Loc: [place] [address] Phys: Concha Kc MD Acct: [id number] Dis Date: Status: ADM IN PHONE #: [phone] Exam Date: 2018 FAX #: Reason: R/O ASPIRATION EXAMS: CPT: [id number] XR CHEST 1 V 97560 Fluoro Time: DAP (Gy m2): Air Kerma (mGy): < Continued> Technologist: Peter Kim, RT(R)(CT); ... Trnscb Date/Time: 02/03/2019 (2158) t.SDR.JP19 Orig Print D/T: S: 02/03/2019 (2201) PAGE 2 Signed ReportGLUCOSE BEDSIDE [id number] 21:58:00 Test Item Value Reference Range Comments GLUCOSE BEDSIDE TESTING (test code=GLUBED) 123 mg/dL 70-110 GLUCOSE BEDSIDE [id number] 18:07:00 Test Item Value Reference Range Comments GLUCOSE BEDSIDE TESTING (test code=GLUBED) 144 mg/dL 70-110 RENAL FUNCTION [id number] 16:41:00 Test Item Value Reference Range Comments SODIUM (test code=NA) 144 mmol/L 134-147 POTASSIUM (test code=K) 4.3 mmol/L 3.4-5.0 CHLORIDE (test code=CL) 112 mmol/L 100-108 CARBON DIOXIDE (test code=CO2) 24 mmol/L 21-32 GLUCOSE (test code=GLU) 140 MG/DL 70-110 BLOOD UREA NITROGEN (test code=BUN) 38 MG/DL 7-18 GLOMERULAR FILTRATION RATE (test code=GFR) 29 estGFR >60 CREATININE (test code=CREAT) 2.3 MG/DL 0.8-1.3 ALBUMIN (test code=ALB) 2.5 G/DL 3.4-5.0 CALCIUM (test code=CA) 8.1 MG/DL 8.5-10.1 PHOSPHOROUS (test code=PHOS) 3.8 MG/DL 2.5-4.9 GLUCOSE BEDSIDE [id number] 11:23:00 Test Item Value Reference Range Comments GLUCOSE BEDSIDE TESTING (test code=GLUBED) 133 mg/dL 70-110 - CT HEAD/BRAIN W/O [id number] 08:31:00 Name: CHEYENNE MACHADO JR [facility] : 1935 Age/S: 83 / M [address] Unit #: [id number] Loc: [place] [address] Phys: Leia Aldana MD Acct: [id number] Dis Date: Status : ADM IN PHONE #: [phone] Exam Date: 02/03/2019 0657 FAX #: Reason: AMS, h/o recent stroke EXAMS: CPT: [id number] CT HEAD/BRAIN W/O CONT 12244 Dictation location: L11. CT HEAD WITHOUT CONTRAST. HISTORY: AMS, h/o recent stroke COMPARISON: No comparison is available. TECHNIQUE: Axial CT images of thehead were obtained with coronal and/or sagittal reformatted views. Automated exposure control, iterative reconstruction technique, and/or adjustment of mA and/or kV according to patient's size was utilized for radiation dose reduction. IV CONTRAST: None. FINDINGS: Again noted is an evolving subacute left temporal lobe infarct with petechial areas of hemorrhage versus laminar necrosis. The chronic right subdural hematoma measuring up to 1.5 cm in thickness is not significantly changed. There is a continued 5 mm leftwardmidline shift. Mild amount of periventricular and deep white matter hypodensities are seen, these are most commonly associated with chronic, microvascular ischemic changes. Mild generalized atrophy is noted. No other intracranial abnormalities such as new hemorrhage , mass, mass effect, hydrocephalus, midline shift,or secondary signs of an acute infarct are noted. The calvarium and skull base are intact. The paranasal sinus and mastoid air cells are clear. IMPRESSION: Evolving subacute left temporal lobe infarct with petechial hemorrhages versus laminar necrosis. Stable chronic right subdural hematoma with 5 mm leftward shift. Electronically Signedby Mavis Hitchcock on 02/03/2019 at 0831 Reported and signed by: Myranda Hitchcock M.D. PAGE 1 Signed Report (CONTINUED) Name: CHEYENNE MACHADO JR [place] : 1935 Age/S: 83 / M [address] [address] Unit #: [id number] Loc: [place] [address] Phys: Leia Aldana MD Acct: [id number] Dis Date: Status: ADM IN PHONE #: [phone] Exam Date: 02/03/2019 0657 FAX #: Reason: AMS, h/o recent stroke EXAMS: CPT: [id number] CT HEAD/ BRAIN W/O CONT 34663 <Continued> CC: Marybeth Pizano MD; Leia Aldana MD Technologist:Peter Kim RT(R)(CT); .. CTDI: DLP: Trnscb Date/Time: 02/03/2019 (0831) t.SDR.SP17 Orig Print D/T: S : 02/03/2019 (0834) PAGE 2 Signed ReportGLUCOSE BEDSIDE [id number] 07:32:00 Test Item Value Reference Range Comments GLUCOSE BEDSIDE TESTING (test code=GLUBED) 137 mg/dL 70-110 GLUCOSE BEDSIDE [id number] 20:20:00 Test Item Value Reference Range Comments GLUCOSE BEDSIDE TESTING (test code=GLUBED) 113 mg/dL 70-110 GLUCOSE BEDSIDE [id number] 17:15:00 Test Item Value Reference Range Comments GLUCOSE BEDSIDE TESTING (test code=GLUBED) 141 mg/dL 70-110 GLUCOSE BEDSIDE [id number] 12:57:00 Test Item Value Reference Range Comments GLUCOSE BEDSIDE TESTING (test code=GLUBED) 146 mg/dL 70-110 RENAL FUNCTION [id number] 10:33:00 Test Item Value Reference Range Comments SODIUM (test code=NA) 144 mmol/L 134-147 POTASSIUM (test code=K) 3.9 mmol/L 3.4-5.0 CHLORIDE (test code=CL) 112 mmol/L 100-108 CARBON DIOXIDE (test code=CO2) 26 mmol/L 21-32 GLUCOSE (test code=GLU) 130 MG/DL 70-110 BLOOD UREA NITROGEN (test code=BUN) 36 MG/DL 7-18 GLOMERULAR FILTRATION RATE (test code=GFR) 32 estGFR >60 CREATININE (test code=CREAT) 2.1 MG/DL 0.8-1.3 ALBUMIN (test code=ALB) 2.3 G/DL 3.4-5.0 CALCIUM (test code=CA) 8.0 MG/DL 8.5-10.1 PHOSPHOROUS (test code=PHOS) 3.2 MG/DL 2.5-4.9 [id number] 10:33:00 Test Item Value Reference Range Comments VANCOMYCIN (test code=VANCO) 6.1 mcG/ML 5-40 GLUCOSE BEDSIDE [id number] 08:46:00 Test Item Value Reference Range Comments GLUCOSE BEDSIDE TESTING (test code=GLUBED) 151 mg/dL 70-110 GLUCOSE BEDSIDE [id number] 12:33:00 Test Item Value Reference Range Comments GLUCOSE BEDSIDE TESTING (test code=GLUBED) 114 mg/dL 70-110 - XR ABDOMEN 1 [id number] 10:52:00 Name: CHEYENNE MACHADO JR [facility] : 1935 Age/S: 83 / M [address] [address] Unit #: [id number] Loc: [place] [address] Phys: Marybeth Pizano MD Acct: [id number] Dis Date: Status: ADM IN PHONE #: [phone] Exam Date: 02/01/2019 1046 FAX #: Reason: NG TUBE PLACEMENT EXAMS: CPT: [id number] XR ABDOMEN 1 V 29274 Fluoro Time: DAP (Gy m2): Air Kerma (mGy): EXAMINATION: - XR ABDOMEN 1 V.LOCATION: B2. HISTORY: NG TUBE PLACEMENT. COMPARISON: Radiograph of sameday at 0911 hours. TECHNIQUE: Single AP view of the abdomen was obtained. FINDINGS: Esophagogastric tube tip is in the stomach. Bowel gas pattern is normal. Multiple pelvic phleboliths are noted. No acute osseous abnormality is seen. IMPRESSION: Esophagogastric tube tip is in the stomach. Electronically Signedby Mavis Mcgrath on 02/01/2019 at 1052 Reported and signed by: Cat Mcgrath M.D. CC: Marybeth Pizano MD PAGE 1 Signed Report Name: CHEYENNE MACHADO JR [place] : 1935 Age/S: 83 / M [address] [address] Unit #: [id number] Loc: [place] [address] Phys : Marybeth Pizano MD Acct: [id number] Dis Date: Status: ADM IN PHONE #: [phone] Exam Date: 02/01/2019 1046 FAX #: Reason: NG TUBE PLACEMENT EXAMS: CPT: [id number] XR ABDOMEN 1 V 46356 Fluoro Time: DAP (Gy m2): Air Kerma (mGy) : <Continued> Technologist: RT Socrates(R) Trnutb Date/Time: 02/01/2019 (1052) [id number] Orig Print D/T: S: 02/01/2019 (3966) PAGE 2 Signed Report- XR ABDOMEN 1 [id number] 09:25:00 Name: CHEYENNE MACHADO JR [place] : 1935 Age/S: 83 / M [id number] #: [id number] Loc: [place] [address] Phys: Marybeth Pizano MD Acct: [id number] Dis Date: Status: ADM IN PHONE #: [phone] Exam Date: 02/01/2019 0917 FAX #: Reason: NG TUBE PLACEMENT EXAMS: CPT: [id number] XR ABDOMEN 1 V 10835 Fluoro Time: DAP (Gy m2): Air Kerma (mGy): EXAM: XR ABDOMEN 1 VIEW INDICATION: NG TUBE PLACEMENT LOCATION: C3 COMPARISON: Abdominal radiograph dated 01/31/2019 TECHNIQUE: AP view of the abdomen. FINDINGS: Lines, tubes and hardware: An esophagogastric tube has been removed in the interim. Lower thorax: Unremarkable where visualized. Bowel: Non- obstructive bowel gas pattern. Other organs: No abnormal mass or organomegaly seen. Calcifications: Vascular calcifications are seen in the abdomen. Bones: No acute osseous abnormality. IMPRESSION: Interval removal of an esophagogastric tube. Nonobstructive bowel gas pattern. at 0925 Reported and signed by: Gabrielle Black MD CC: Marybeth Pizano MD PAGE 1 Signed Report Name: CHEYENNE MACHADO JR : 1935 Age/S: 83 / M [id number] #: [id number] Loc: [place] [address] Phys: Marybeth Pizano MD Acct: [id number] Dis Date: Status: ADM IN PHONE #: [phone] Exam Date: 02/01/2019 09 FAX #: Reason: NG TUBE PLACEMENT EXAMS: CPT: [id number] XR ABDOMEN 1 V 27710 Fluoro Time: DAP (Gy m2): Air Kerma (mGy): <Continued> Technologist: RT Socrates(R) Trnscb Date/Time: 02/01/2019 ( 924) [email or web address] Orig Print D/T: S: 02/01/2019 (928) PAGE 2 Signed ReportGLUCOSE BEDSIDE [id number] 08:03:00 Test Item Value Reference Range Comments GLUCOSE BEDSIDE TESTING (test code=GLUBED) 117 mg/dL 70-110 COMPREHENSIVE METABOLIC [id number] 06:25:00 Test Item Value Reference Range Comments SODIUM (test code=NA) 146 mmol/L 134-147 POTASSIUM (test code=K) 3.5 mmol/L 3.4-5.0 CHLORIDE (test code=CL) 113 mmol/L 100-108 CARBON DIOXIDE (test code=CO2) 26 mmol/L 21-32 ANION GAP (test code=GAP) 7.0 GAP calc 4.0-15.0 GLUCOSE (test code=GLU) 107 MG/DL 70-110 BLOOD UREA NITROGEN (test code=BUN) 32 MG/DL 7-18 GLOMERULAR FILTRATION RATE (test code=GFR) 31 estGFR >60 CREATININE (test code=CREAT) 2.2 MG/DL 0.8-1.3 TOTAL PROTEIN (test code=PROT) 7.1 G/DL 6.4-8.2 ALBUMIN (test code=ALB) 2.7 G/DL 3.4-5.0 GLOBULIN (test code=GLOB) 4.4 GM/dL ALBUMIN/GLOBULIN RATIO (test code=A/G) 0.6 RATIO 1.2-2.2 CALCIUM (test code=CA) 8.7 MG/DL 8.5-10.1 BILIRUBIN TOTAL (test code=BILT) 1.20 MG/DL 0.2-1.2 SGOT/AST (test code=AST) 22 Unit/L 15-37 SGPT/ALT (test code=ALT) 21 Unit/L 12-78 ALKALINE PHOSPHATASE TOTAL (test code=ALKP) 47 Unit/L 50-136 RENAL FUNCTION [id number] 06:25:00 Test Item Value Reference Range Comments PHOSPHOROUS (test code=PHOS) 3.2 MG/DL 2.5-4.9 [id number] 06:25:00 Test Item Value Reference Range Comments MAGNESIUM (test code=MAG) 1.8 MG/DL 1.8-2.4 COMPREHENSIVE METABOLIC [id number] 06:21:00 Test Item Value Reference Range Comments SODIUM (test code=NA) 146 mmol/L 134-147 POTASSIUM (test code=K) 3.5 mmol/L 3.4-5.0 CHLORIDE (test code=CL) 113 mmol/L 100-108 CARBON DIOXIDE (test code=CO2) 26 mmol/L 21-32 ANION GAP (test code=GAP) 7.0 GAP calc 4.0-15.0 GLUCOSE (test code=GLU) 107 MG/DL 70-110 BLOOD UREA NITROGEN (test code=BUN) 32 MG/DL 7-18 GLOMERULAR FILTRATION RATE (test code=GFR) estGFR >60 CREATININE (test code=CREAT) MG/DL 0.8-1.3 TOTAL PROTEIN (test code=PROT) G/DL 6.4-8.2 ALBUMIN (test code=ALB) G/DL 3.4-5.0 GLOBULIN (test code=GLOB) GM/dL ALBUMIN/GLOBULIN RATIO (test code=A/G) RATIO 1.2-2.2 CALCIUM (test code=CA) 8.7 MG/DL 8.5-10.1 BILIRUBIN TOTAL (test code=BILT) MG/DL 0.2-1.2 SGOT/AST (test code=AST) Unit/L 15-37 SGPT/ALT (test code=ALT) Unit/L 12-78 ALKALINE PHOSPHATASE TOTAL (test code=ALKP) Unit/L 50-136 RENAL FUNCTION [id number] 06:21:00 Test Item Value Reference Range Comments PHOSPHOROUS (test code=PHOS) MG/DL 2.5-4.9 [id number] 06:21:00 Test Item Value Reference Range Comments MAGNESIUM (test code=MAG) MG/DL 1.8-2.4 CBC W/AUTO [id number] 06:11:00 Test Item Value Reference Range Comments WHITE BLOOD CELL (test code=WBC) 7.1 K/mm3 3.5-11.0 RED BLOOD CELL (test code=RBC) 2.60 M/mm3 4.70-6.10 HEMOGLOBIN (test code=HGB) 8.7 G/DL 12.3-15.9 HEMATOCRIT (test code=HCT) 27.2 % 35.8-46.7 MEAN CELL VOLUME (test code=MCV) 104.6 Fl 86.3-98.9 MEAN CELL HGB (test code=MCH) 33.5 pg 28.9-34.4 MEAN CELL HGB CONCETRATION (test code=MCHC) 32.0 G/DL 32.1-34.5 RED CELL DISTRIBUTION WIDTH (test code=RDW) 13.1 SD 11.5-14.5 PLATELET COUNT (test code=PLT) 133.0 K/mm3 150-450 MEAN PLATELET VOLUME (test code=MPV) 10.80 fL 7.0-9.6 NEUTROPHIL % (test code=NT%) 78.3 % 40-76 LYMPHOCYTE % (test code=LY%) 11.3 % 20.5-51.1 MONOCYTE % (test code=MO%) 8.2 % 1.7-9.3 EOSINOPHIL % (test code=EO%) 1.6 % 0.0-6.0 BASOPHIL % (test code=BA%) 0.6 % 0.0-2.0 NEUTROPHIL # (test code=NT#) 5.52 K/mm3 1.8-7.6 LYMPHOCYTE # (test code=LY#) 0.8 K/mm3 0.6-3.0 MONOCYTE # (test code=MO#) 0.6 K/mm3 0.2-1.5 EOSINOPHIL # (test code=EO#) 0.1 K/mm3 0.0-0.4 BASOPHIL # (test code=BA#) 0.0 K/mm3 0.0-0.2 MANUAL DIFF REQUIRED (test code=MDIFF) NO DIFF/SCN CRITERIA RAPID PLASMA [id number] 06:09:00 Test Item Value Reference Range Comments RAPID PLASMA REAGIN (test Non Reactive Non Reactive Performed At: [facility] code=RPR) [id number] [place], [place] [id number] Delbert [place] MD Ph:[phone] - XR CHEST 1 [id number] 21:19:00 Name: CHEYENNE MACHADO JR [facility] : 1935 Age/S: 83 / M [address] Unit #: [id number] Loc: [place] [address] Phys: Concha Kc MD Acct: [id number] Dis Date: Status: ADM IN PHONE #: [phone] Exam Date: 01/31/20192050 FAX #: Reason: EVAL FORASPIRATION EXAMS: CPT: [id number] XR CHEST 1 V 77326 Fluoro Time: DAP (Gy m2): Air Kerma (mGy): EXAM : Chest one view. Location:R16 HISTORY: CVA, evaluate for aspiration, , COMPARISON: 01/31/2019 FINDINGS : There is interval placement of nasogastric tube with tip projecting over the proximal gastric body/fundus. Cardiac silhouette is mildly enlarged. There is prominence of central pulmonary vessels. Further airspace opacities are present in the bilateral lung bases which are likely unchanged. There are further airspace opacities in the right upper lung. There are no pleural effusions or pneumothorax. Visualized skeletal structures are unremarkable. IMPRESSION: 1. Cardiomegaly and pulmonary vascular congestion. 2. Stable bibasilar atelectasis/consolidation. Worsening right upper lung atelectasis/consolidation. 3. Interval placement of nasogastric tube with tip projecting over the gastric fundus/proximal body.. at 2118 Reported and signed by: Kurt Saldana M.D. CC: Marybeth Pizano MD; Kymberly BARRETO; Concha Kc MD PAGE 1 SignedReport Name: CHEYENNE MACHADO JR [place] : 1935 Age/S: 83 / M [address] Unit #: [id number] Loc: [place] [address] Phys: Concha Kc MD Acct: [id number] Dis Date: Status: ADM IN PHONE #: [phone] Exam Date: 01/31/20192050 FAX #: Reason: EVAL FOR ASPIRATION EXAMS: CPT: [id number] XR CHEST 1 V 08056 Fluoro Time: DAP ( Gy m2): Air Kerma (mGy): <Continued> Technologist: Peter Kim, RT(R)(CT); ... Trnscb Date/Time: 01/31/2019 ( 2118) [email or web address] Orig Print D/T: S: 01/31/2019 (2121) PAGE 2 Signed Report- XR ABDOMEN 1 [id number] 21:12:00 Name: CHEYENNE MACHADO JR [place] : 1935 Age/S: 83 / M [address] Unit #: [id number] Loc: [place] [address] Phys: Concha Kc MD Acct: [id number] Dis Date: Status: ADM IN PHONE #: [phone] Exam Date: 01/31/20192050 FAX #: Reason: NGT PLACEMENT EXAMS: CPT: [id number] XR ABDOMEN 1 V 38529 Fluoro Time: DAP (Gy m2): Air Kerma (mGy): EXAM: Chest one view. Location:R16 HISTORY: NGT PLACEMENT, , COMPARISON: 01/31/2019 at 2051 and abdomenfrom 01/30/2019 FINDINGS: There is nasogastric tube which traverses thediaphragm with sidehole noted at the gastroesophageal junction. The tip is identified in the proximal gastric body. Cardiac silhouette is moderately enlarged. There is prominence of central pulmonary vessels and interstitial markings. Small layering pleural effusions are noted. There is no pneumothorax. Visualized skeletal structures are unremarkable. IMPRESSION: 1. Interval placement of nasogastric tube with sidehole at the esophageal junction and tip in proximal body. 2. Cardiomegaly and pulmonary vascular congestion and small layering bilateral pleural effusions. at 2111 * * Reportedand signed by: Kurt Saldana M.D. CC : Marybeth Pizano MD; Kymberly BARRETO; Concha Kc MD PAGE 1 Signed Report Name: CHEYENNE MACHADO JR : 1935 Age/S: 83 / M [address] Unit #: [id number] Loc: [place] [address] Phys: Concha Kc MD Acct: [id number] Dis Date: Status: ADM IN PHONE #: [phone] Exam Date: 01/31/20192050 FAX #: Reason: NGT PLACEMENT EXAMS: CPT: [id number] XR ABDOMEN 1 V 32942 Fluoro Time: DAP (Gy m2): Air Kerma (mGy): <Continued> Technologist: Peter Kim, RT(R)(CT); ... Trnscb Date/Time: 01/31/2019 (2111) [email or web address] Orig Print D/T: S: 01/31/2019 (2114) PAGE 2 Signed ReportGLUCOSE BEDSIDE [id number] 19:59:00 Test Item Value Reference Range Comments GLUCOSE BEDSIDE TESTING (test code=GLUBED) 131 mg/dL 70-110 GLUCOSE BEDSIDE [id number] 16:41:00 Test Item Value Reference Range Comments GLUCOSE BEDSIDE TESTING (test code=GLUBED) 160 mg/dL 70-110 GLUCOSE BEDSIDE [id number] 12:18:00 Test Item Value Reference Range Comments GLUCOSE BEDSIDE TESTING (test code=GLUBED) 163 mg/dL 70-110 GLUCOSE BEDSIDE [id number] 08:12:00 Test Item Value Reference Range Comments GLUCOSE BEDSIDE TESTING (test code=GLUBED) 162 mg/dL 70-110 GLUCOSE BEDSIDE [id number] 05:35:00 Test Item Value Reference Range Comments GLUCOSE BEDSIDE TESTING (test code=GLUBED) 179 mg/dL 70-110 RENAL FUNCTION [id number] 03:34:00 Test Item Value Reference Range Comments SODIUM (test code=NA) 142 mmol/L 134-147 POTASSIUM (test code=K) 3.6 mmol/L 3.4-5.0 CHLORIDE (test code=CL) 111 mmol/L 100-108 CARBON DIOXIDE (test code=CO2) 25 mmol/L 21-32 GLUCOSE (test code=GLU) 170 MG/DL 70-110 BLOOD UREA NITROGEN (test code=BUN) 28 MG/DL 7-18 GLOMERULAR FILTRATION RATE (test code=GFR) 34 estGFR >60 CREATININE (test code=CREAT) 2.0 MG/DL 0.8-1.3 ALBUMIN (test code=ALB) 2.7 G/DL 3.4-5.0 CALCIUM (test code=CA) 8.7 MG/DL 8.5-10.1 PHOSPHOROUS (test code=PHOS) 2.5 MG/DL 2.5-4.9 LIPID PROFILE (CORONARY RISK)2019-01-31 03:34:00 Test Item Value Reference Range Comments TRIGLYCERIDES (test code=TRIG) 104 MG/DL 0-150 CHOLESTEROL (test code=CHOL) 148 MG/DL 133-200 CHOLESTEROL/HDL RATIO (test code=CHOLHDL) 3.70 RATIO >0 HDL CHOLESTEROL (test code=HDL) 40 MG/DL 40-59 NON-HDL CHOLESTEROL (test code=NHDL) 108 mg/dL <130 LIPOPROTEIN LDL (test code=LDL) 97 MG/DL 0-129 LDL/HDL (test code=LDL/HDL) 2.42 Ratio 1.48-3.22 Avg [id number] 03:34:00 Test Item Value Reference Range Comments GLYCOSYLATED HEMOGLOBIN (HA1C) (test 5.3 % A1C 4.2-6.3 code=GLYHGB) ESTIMATED AVERAGE GLUCOSE (test code=EAG) 105 MG/DLest RENAL FUNCTION [id number] 03:24:00 Test Item Value Reference Range Comments SODIUM (test code=NA) 142 mmol/L 134-147 POTASSIUM (test code=K) 3.6 mmol/L 3.4-5.0 CHLORIDE (test code=CL) 111 mmol/L 100-108 CARBON DIOXIDE (test code=CO2) 25 mmol/L 21-32 GLUCOSE (test code=GLU) 170 MG/DL 70-110 BLOOD UREA NITROGEN (test code=BUN) 28 MG/DL 7-18 GLOMERULAR FILTRATION RATE (test code=GFR) estGFR >60 CREATININE (test code=CREAT) MG/DL 0.8-1.3 ALBUMIN (test code=ALB) G/DL 3.4-5.0 CALCIUM (test code=CA) 8.7 MG/DL 8.5-10.1 PHOSPHOROUS (test code=PHOS) MG/DL 2.5-4.9 LIPID PROFILE (CORONARY RISK)2019-01-31 03:24:00 Test Item Value Reference Range Comments TRIGLYCERIDES (test code=TRIG) MG/DL 0-150 CHOLESTEROL (test code=CHOL) MG/DL 133-200 CHOLESTEROL/HDL RATIO (test code=CHOLHDL) RATIO >0 HDL CHOLESTEROL (test code=HDL) MG/DL 40-59 NON-HDL CHOLESTEROL (test code=NHDL) mg/dL <130 LIPOPROTEIN LDL (test code=LDL) MG/DL 0-129 LDL/HDL (test code=LDL/HDL) Ratio 1.48-3.22 Avg GLUCOSE BEDSIDE [id number] 00:00:00 Test Item Value Reference Range Comments GLUCOSE BEDSIDE TESTING (test code=GLUBED) 164 mg/dL 70-110 - XR ABDOMEN 1 [id number] 19:09:00 Name: CHEYENNE MACHADO JR [facility] : 1935 Age/S: 83 / M [address] Unit #: [id number] Loc: [place] [address] Phys: Marybeth Pizano MD Acct: [id number] Dis Date: Status: ADM IN PHONE #: [phone] Exam Date: 01/30/2019 5211 FAX #: Reason: confirm ng tube placement EXAMS: CPT: [id number] XR ABDOMEN 1 V 78653 Fluoro Time: DAP (Gy m2): Air Kerma (mGy): Location code: B2 Abdomen one view HISTORY: NG tube placement COMMENT: The abdominal radiograph shows a minimally prominent small bowel loops diffusely. Colonic gas is present. There is no pneumatosis or mass effect. There are no radiopaque densities noted. There are no clinically significant osseous abnormalities noted. NG tube in the stomach. IMPRESSION: 1. Minimally prominent small bowel loops may represent an enteritis or perhaps asmall bowel ileus or partial obstruction 2. NG tube in the stomach. at 1909 Reported and signed by: Edson Nina M.D. CC: Marybeth Pizano MD PAGE 1 Signed Report Name: CHEYENNE MACHADO JR [place] : 1935 Age/S: 83 / M [address] [place] [address] Unit #: [id number] Loc: [place] [address] Phys: Marybeth Pizano MD Acct: [id number] Dis Date: Status: ADM IN PHONE #: [phone] Exam Date: 01/30/2019 1787 FAX #: Reason: confirm ng tube placement EXAMS: CPT: [id number] XR ABDOMEN 1 V 85674 Fluoro Time: DAP (Gy m2): Air Kerma (mGy): < Continued> Technologist: Kamilah Perez RT(R)(CT)(MRI) Trnscb Date/Time: 01/30/2019 (1908) [email or web address] Orig Print D/T: S : 01/30/2019 (1911) PAGE 2 SignedReportBASIC METABOLIC [id number] 16:47:00 Test Item Value Reference Range Comments SODIUM (test code=NA) 143 mmol/L 134-147 POTASSIUM (test code=K) 3.9 mmol/L 3.4-5.0 CHLORIDE (test code=CL) 111 mmol/L 100-108 CARBON DIOXIDE (test code=CO2) 24 mmol/L 21-32 ANION GAP (test code=GAP) 8.0 GAP calc 4.0-15.0 GLUCOSE (test code=GLU) 130 MG/DL 70-110 BLOOD UREA NITROGEN (test code=BUN) 28 MG/DL 7-18 GLOMERULAR FILTRATION RATE (test code=GFR) 34 estGFR >60 CREATININE (test code=CREAT) 2.0 MG/DL 0.8-1.3 CALCIUM (test code=CA) 9.2 MG/DL 8.5-10.1 - MRI BRAIN W/O [id number] 11:36:00 FAX: Marybeth Miller MD Camps: PM St: ADM Name: CHEYENNE MACHADO JR [place] : 1935 Age/S: 83/M [address] Unit #: [id number] Loc: [place] [address] Phys: Marybeth Pizano MD Acct: [id number] Dis Date: Status: ADM IN PHONE #: [phone] Exam Date: 01/30/2019 1056 FAX #: Reason: ISCHEMIC STROKE EXAMS: CPT: [id number] MRI BRAIN W/O CONTRAST 83359 Dictation location: L11. MRI BRAIN WITHOUT CONTRAST HISTORY: ISCHEMIC STROKE TECHNIQUE: Multiplanar and multiple pulse sequences were obtained throughout the brain without contrast. COMPARISON: CT head 01/28/19 FINDINGS: Limited exam due to patient motion. A subacute infarct is again noted along the medial left temporal lobe with areas of increased DWI and decreased ADC map with localized mass effect and increased T2 and FLAIR signal. There is also petechial cortical hemorrhages in the region of the infarct. Again noted is the subacute right subdural hematoma measuring up to 1 cm in thickness causing mass effect on the right cerebral hemisphere with 5 mm leftward midline shift. Generalized atrophy. No significant T2 or FLAIR signal hyperintensities in the white matter. No hydrocephalus. Minimal thickening in the maxillary sinuses. Trace fluid in the left mastoid air cells. The samish lenses of the both eyes are absent. IMPRESSION: Limited exam due to patient motion. 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 Vascular territory and involves predominantly the DEHYDRATOR territory however there is also MCA involvement, unusual distribution. Recommend follow-up. 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 at 1136 Reported and signed by : Myranda Hitchcock M.D. PAGE 1 Signed Report (CONTINUED) FAX: Marybeth Miller MD Camps:PM St: ADM Name:CHEYENNE MACHADO JR [place] : 1935 Age/S: 83/M [address] Unit #: [id number] Loc: [place] [address] Phys: Marybeth Pizano MD Acct: [id number] Dis Date: Status: ADM IN PHONE #: [phone] Exam Date: 01/30/2019 1056 FAX #: Reason: ISCHEMIC STROKE EXAMS: CPT: [id number] MRI BRAIN W/O CONTRAST 50665 <Continued&gt ; CC: Marybeth Pizano MD Technologist: RT Marco(R)(MR) Transcribed Date/Time/By: 01/30/2019 (1136) :[email or web address] Orig Print D/T: S: 01/30/2019 (1139) PAGE 2 Signed Report- US RETRO [id number] 02:02:00 Name: CHEYENNE MACHADO JR [place] : 1935 Age/S: 83 / M [address] Unit #: [id number] Loc: [place] [address] Phys: Nikita Damico MD Acct: [id number] Dis Date: Status: ADM IN PHONE #: [phone] Exam Date: 01/29/2019 1700 FAX #: Reason: YANNICK EXAMS: CPT: [id number] US RETRO LTD [address] DICTATION LOCATION: [facility] HISTORY: Male, 83 years of age with YANNICK EXAM: ULTRASOUND OF THE KIDNEYS AND URINARY BLADDER COMPARISON: None relevant TECHNIQUE: Transabdominal images of the kidneys and urinary bladder with color Doppler interrogation were performed with the sector transducer. According to the technologist that this study is limited by poor patient cooperation. FINDINGS: RIGHT KIDNEY: 10.4 x 6.1 x 5.3 cm Cortex: 1.2 cm thickness, normal echogenicity. No hydronephrosis, calculus, or mass. LEFT KIDNEY: 10.3 x 5.7 x 6.0 cm Cortex: 2.0 cm thickness, normal echogenicity. No hydronephrosis, calculus, or mass. URINARY BLADDER: Images of the full urinary bladder show no significant wall thickening. No filling defects or diverticula. IMPRESSION: Normal ultrasound of the kidneys and bladder. Electronically Signed by Desiree Leal MD on at 0202 Reported and signed by: Desiree Daley MD CC: Nikita Damico MD; Marybeth Pizano MD Technologist: Natalie Smallwood Trnutb Date /Time: 01/30/2019 (0202) SurinderCLW PAGE 1 Signed Report Name: CHEYENNE MACHADO JR [facility] : 1935 Age/S: 83 / M [address] Unit #: [id number] Loc: [place] [address] Phys: Nikita Damico MD Acct: [id number] Dis Date: Status: ADM IN PHONE #: [phone] Exam Date: 01/29/2019 1700 FAX #: Reason: YANNICK EXAMS: CPT: [id number] [facility] [address] <Continued> Orig Print D/T: S: 01/30/2019 ( 0206) Probe: PAGE 2Signed ReportBASIC METABOLIC [id number] 14:29:00 Test Item Value Reference Range Comments SODIUM (test code=NA) 143 mmol/L 134-147 POTASSIUM (test code=K) 4.0 mmol/L 3.4-5.0 CHLORIDE (test code=CL) 110 mmol/L 100-108 CARBON DIOXIDE (test code=CO2) 24 mmol/L 21-32 ANION GAP (test code=GAP) 9.0 GAP calc 4.0-15.0 GLUCOSE (test code=GLU) 96 MG/DL 70-110 BLOOD UREA NITROGEN (test code=BUN) 29 MG/DL 7-18 GLOMERULAR FILTRATION RATE (test code=GFR) 34 estGFR >60 CREATININE (test code=CREAT) 2.0 MG/DL 0.8-1.3 CALCIUM (test code=CA) 9.0 MG/DL 8.5-10.1 [id number] 14:29:00 Test Item Value Reference Range Comments PHOSPHOROUS (test code=PHOS) 2.4 MG/DL 2.5-4.9 [id number] 14:29:00 Test Item Value Reference Range Comments MAGNESIUM (test code=MAG) 1.9 MG/DL 1.8-2.4 CBC W/AUTO [id number] 14:22:00 Test Item Value Reference Range Comments WHITE BLOOD CELL (test code=WBC) 6.7 K/mm3 3.5-11.0 RED BLOOD CELL (test code=RBC) 2.53 M/mm3 4.70-6.10 HEMOGLOBIN (test code=HGB) 8.5 G/DL 12.3-15.9 HEMATOCRIT (test code=HCT) 26.7 % 35.8-46.7 MEAN CELL VOLUME (test code=MCV) 105.5 Fl 86.3-98.9 MEAN CELL HGB (test code=MCH) 33.6 pg 28.9-34.4 MEAN CELL HGB CONCETRATION (test code=MCHC) 31.8 G/DL 32.1-34.5 RED CELL DISTRIBUTION WIDTH (test code=RDW) 13.2 SD 11.5-14.5 PLATELET COUNT (test code=PLT) 152.0 K/mm3 150-450 MEAN PLATELET VOLUME (test code=MPV) 9.80 fL 7.0-9.6 NEUTROPHIL % (test code=NT%) 79.2 % 40-76 LYMPHOCYTE % (test code=LY%) 11.4 % 20.5-51.1 MONOCYTE % (test code=MO%) 8.9 % 1.7-9.3 EOSINOPHIL % (test code=EO%) 0.2 % 0.0-6.0 BASOPHIL % (test code=BA%) 0.3 % 0.0-2.0 NEUTROPHIL # (test code=NT#) 5.28 K/mm3 1.8-7.6 LYMPHOCYTE # (test code=LY#) 0.8 K/mm3 0.6-3.0 MONOCYTE # (test code=MO#) 0.6 K/mm3 0.2-1.5 EOSINOPHIL # (test code=EO#) 0.0 K/mm3 0.0-0.4 BASOPHIL # (test code=BA#) 0.0 K/mm3 0.0-0.2 MANUAL DIFF REQUIRED (test code=MDIFF) NO DIFF/SCN CRITERIA PROTHROMBIN [id number] 15:25:00 Test Item Value Reference Range Comments PT PATIENT (test code=PTP) 13.7 SECONDS 9.3-12.9 INTERNATIONAL NORMAL RATIO (test code=INR) 1.19 INR Unit 0.8-1.2 THROMBOPLASTIN TIME [id number] 15:25:00 Test Item Value Reference Range Comments THROMBOPLASTIN TIME PARTIAL (test code=PTT) 29.6 SECONDS 26-35 - XR CHEST 1 [id number] 14:47:00 Name: CARTER SNIDERCHEYENNE KIDD [place] : 1935 Age/S: 83 / M [address] Unit #: [id number] Loc: [place] [address] Phys: Maninder Schmidt MD Acct: [id number] Dis Date: Status: ADM IN PHONE #: [phone] Exam Date: 01/28/2019 1315 FAX #: Reason: epigatric pain EXAMS: CPT: [id number] XR CHEST 1 V 88059 Fluoro Time: DAP (Gy m2): Air Kerma (mGy): LOCATION: T18 EXAM: CHEST 1 VIEW INDICATION: epigatric pain COMPARISON: None. TECHNIQUE: AP chest radiograph. FINDINGS: Right perihilar consolidation concerning for infection, pneumonitis or edema. No pleural effusion. The heart is normal in size. Enlargement of the pulmonary arterial trunk. Bones and peripheral soft tissues are unremarkable. IMPRESSION: Right perihilar opacity concerning for pneumonia or edema. Enlargement ofthe pulmonary arterial trunk [id number] Reported and signed by: Seth Mendoza M.D. CC: Maninder Schmidt MD; Krys BARRETO PAGE 1 Signed Report Name: CHEYENNE MACHADO JR [facility] : 1935 Age/S: 83 / M [address] Unit #: [id number] Loc: [place] [address] Phys: Maninder Schmidt MD Acct: [id number] Dis Date: Status: ADM IN PHONE #: [phone] Exam Date: 01/28/2019 1315 FAX #: Reason: epigatric pain EXAMS: CPT: [id number] XR CHEST 1 V 19851 Fluoro Time: DAP (Gy m2): Air Kerma (mGy): & lt;Continued> Technologist: Paras Reynaga RT(R)(CT) Trnscb Date/Time: 01/28/2019 (1261) [email or web address] Orig Print D /T: S: 01/28/2019 (5284) PAGE 2 Signed ReportTROPONIN I [id number] 14:18:00 Test Item Value Reference Range Comments TROPONIN I RAPID (test 0.04 ng/mL 0.00-0.08 - The use of serial sampling code=TROPIRAP) and testing protocol is a recommended practice- An elevated troponin level alone is often not sufficient for diagnosis of myocardial infarction. CHEMISTRY 8 [id number] 14:14:00 Test Item Value Reference Range Comments ISTAT-SODIUM (test code=NAP) mmol/L 135-146 ISTAT-POTASSIUM (test code=KP) mmol/L 3.5-4.9 ISTAT-CHLORIDE (test code=CLP) mmol/L 98-109 ISTAT-CARBON DIOXIDE (test code=ISTAT-CO2) mmol/L 24-29 ISTAT CALCIUM IONIZED (test code=ISTAT-RC) mmol/L 1.12-1.32 ISTAT-GLUCOSE (test code=GLUP) mg/dL 70-105 ISTAT-BUN (test code=BUNP) mg/dL 8-26 BEDSIDE CREATININE (test code=CREATBED) mg/dL 0.6-1.3 GLOMERULAR FILTRATION RATE POC (test code=GFRBED) 26 35-81 CHEMISTRY 8 [id number] 14:14:00 Test Item Value Reference Range Comments ISTAT-SODIUM (test code=NAP) 141 mmol/L 135-146 ISTAT-POTASSIUM (test code=KP) 4.8 mmol/L 3.5-4.9 ISTAT-CHLORIDE (test code=CLP) 105 mmol/L 98-109 ISTAT-CARBON DIOXIDE (test code=ISTAT-CO2) 26 mmol/L 24-29 ISTAT CALCIUM IONIZED (test code=ISTAT-RC) 1.22 mmol/L 1.12-1.32 ISTAT-GLUCOSE (test code=GLUP) 109 mg/dL 70-105 ISTAT-BUN (test code=BUNP) 39 mg/dL 8-26 BEDSIDE CREATININE (test code=CREATBED) 2.5 mg/dL 0.6-1.3 GLOMERULAR FILTRATION RATE POC (test 26 35-81 code=GFRBED) - CT HEAD/BRAIN W/O [id number] 13:07:00 Name: CHEYENNE MACHADO JR [facility] : 1935 Age/S: 83 / M [id number] Unit #: [id number] Loc: [place] [address] Phys: Maninder Schmidt MD Acct: [id number] Dis Date: Status : REG ER PHONE #: [phone] Exam Date: 01/28/2019 1227 FAX #: Reason: r/o stroke EXAMS: CPT: [id number] CT HEAD/BRAIN W/O CONT 87681 C3 CLINICAL HISTORY: Mental status changes, CVA, chronic right subdural. Evaluate for stroke. CT brain, unenhanced. Reformatted sagittal and coronal images. COMPARISON: 01/28/2019 and 01/21/2019. Automated exposure control , iterative reconstruction technique, and/or adjustment of mA and/or kV according to patient's size was utilized for optimum radiation dose reduction. An unenhanced study of the brain was performed. The right subacute to chronic subdural appears to be stable in distribution and size with mild mass effect occurring, approximately 5.5 mm right to left shift. No new areas of hemorrhage are documented. The left posterior temporal and occipital cortex shows a nonhemorrhagic CVA to have occurred likely acute to subacute. No hemorrhagic components. No acute intracranial hemorrhage seen. The posterior fossa structures appear to be intact. Bone window settings do not show any evidence of skull fracture. Visualized sinuses appear to be clear. . 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 The CVA is nonhemorrhagic. Unchanged in appearance since exam 2 hours prior. Stable appearance to the subacute to chronic right convexity subdural with similar distribution. 6 mm right to left shift continues. Findings were discussed with Maninder Schmidt MD on 01/28/2019 1:05 PM approximately. FOR INTERNALCODING PURPOSES ONLY RESULT CODE: CVR PAGE 1 Signed Report (CONTINUED) Name: CHEYENNE MACHADO JRland : 1935 Age/S: 83 / M [id number] Unit #: [id number] Loc: [place] [address] Phys: Maninder Schmidt MD Acct: [id number] Dis Date: Status: REG ER PHONE #: [phone] Exam Date: 01/28/2019 1227 FAX #: Reason: r/o stroke EXAMS: CPT: [id number] CT HEAD/BRAIN W/O CONT 30842 <Continued> at 1307 Reported and signed by : Man Ritchie M.D. CC: Maninder Schmidt MD; Krys BARRETO Technologist:Eva Malik, RT(R)( MR) CTDI: DLP: Trnscb Date/Time: 01/28/2019 (3867) [email or web address] Orig Print D/T: S: 01/28/2019 (7143) PAGE 2 Signed ReportCBC W/O [id number] 13:01:00 Test Item Value Reference Range Comments WHITE BLOOD CELL (test code=WBC) 8.7 K/mm3 3.5-11.0 RED BLOOD CELL (test code=RBC) 2.90 M/mm3 4.70-6.10 HEMOGLOBIN (test code=HGB) 9.8 G/DL 12.3-15.9 HEMATOCRIT (test code=HCT) 31.1 % 35.8-46.7 MEAN CELL VOLUME (test code=MCV) 107.2 Fl 86.3-98.9 MEAN CELL HGB (test code=MCH) 33.8 pg 28.9-34.4 MEAN CELL HGB CONCETRATION (test code=MCHC) 31.5 G/DL 32.1-34.5 RED CELL DISTRIBUTION WIDTH (test code=RDW) 13.6 SD 11.5-14.5 PLATELET COUNT (test code=PLT) 195.0 K/mm3 150-450 MEAN PLATELET VOLUME (test code=MPV) 9.70 fL 7.0-9.6 - CT HEAD/BRAIN W/O [id number] 11:32:00 Name: CHEYENNE MACHADO JR [place] : 1935 Age/S: 83 / M [address] Unit #: [id number] Loc: [place] [address] Phys: Undefined Provider Acct: [id number] Dis Date: Status : REG REF PHONE #: [phone] Exam Date: 01/28/2019 1047 FAX #: Reason: ALTEREDNEURO STATUS, CONFUSION,HALLUCINATIONS EXAMS: CPT: [id number] CT HEAD/BRAIN W/O CONT 98516 CLINICAL HISTORY: Mental status changes , CVA, chronic right subdural. CT brain, unenhanced. Reformatted sagittal and coronal images. COMPARISON: January 21, 2019. Automated exposure control, iterative reconstruction technique, and/or adjustment of mA and/or kV according to patient's size was utilized for optimum radiation dose reduction. An unenhanced study of the brain was performed. The right subacute to chronic subdural appears to be stable in distribution and size with mild mass effect occurring, approximately 5.5 mm right to left shift. No new areas of hemorrhage are documented. The left posterior temporal and occipital cortex shows a nonhemorrhagic CVA to have occurred likely acute to subacute. No hemorrhagic components. There does not appear to be significant edema at this time.. No hemorrhage, mass effect, or findings of CVA can be seen. No evidence of ventricular shift. The posterior fossa structures appear to be intact. Bone window settings do not show any evidence of skull fracture. Visualized sinuses appear to be clear. . 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 The CVA is nonhemorrhagic. Stable appearance to the subacute to chronic right convexity subdural with similar distribution. 6 mm right to left shift continues. The nurse caring for thepatient was notified at 1130 hours on January. The appropriate health care provider will be notified of the new findings. Location: 9 PAGE 1 Signed Report (CONTINUED) Name: CHEYENNE MACHADO JR : 1935 Age/S: 83 / M [address] [place] Unit #: [id number] Loc: [place] [address]Kzic: Undefined Provider Acct: [id number] Dis Date: Status: REG REF PHONE #: [phone] Exam Date: 01/28/2019 1047 FAX #: Reason: ALTERED NEURO STATUS, CONFUSION,HALLUCINATIONS EXAMS: CPT: [id number] CT HEAD/BRAIN W/O CONT 53389 <Continued> at 1132 Reported and signed by: Ming Denis M.D. CC: Technologist:RT Nga(R)(MR)CTDI: DLP: Trnscb Date/Time: 01/28/2019 (1132) tMARELY Orig Print D/T: S: 01/28/2019 (1136) PAGE 2 Signed Report - CT HEAD/BRAIN W/O [id number] 13:02:00 Name: CHEYENNE MACHADO JR [place] : 1935 Age/S: 83 / M [address] [place] [address] Unit #: [id number] Loc: [place] [address] Phys: Undefined Provider Acct: [id number] Dis Date: Status : REG REF PHONE #: [phone] Exam Date: 01/21/2019 1243 FAX #: Reason: SUBDURAL HEMATOMA EXAMS: CPT: [id number] CT HEAD/BRAIN W/O CONT [address] HEAD WITHOUT CONTRAST HISTORY: SUBDURAL HEMATOMA TECHNIQUE: Axial CT images from the skull base to the vertex without intravenous contrast. Coronal and sagittal reformatted images were created from the data set. One or more of the following dose reduction techniques were used: Automated exposure control, adjustment of the mA and/or kV according to patient size, and/or iterative reconstruction. COMPARISON: None FINDINGS: A 1 cm thick low density right convexity subdural collection results in 7 mm of right to left midline shift. Patchy white matter hypodensities. No evidence of acute infarction. Volume loss results in marked ex vacuo dilatation of the ventricular system. The density in the larger dural sinuses is grossly normal. The osseous structures and orbits have no significant abnormalities. The visualized paranasal sinuses and mastoid air cells are predominantly clear. IMPRESSION: A 1 cm thick subacute to chronic right subdural collection results in 7 mm of right to left midline shift. at 2532 Reported and signed by: Mavis Kline PAGE 1 Signed Report (CONTINUED) Name:CHEYENNE MACHADO JR : 1935 Age/S: 83 / M [address] [facility] [place] Unit #: [id number] Loc: [place] [address] Phys: Undefined Provider Acct: [id number] Dis Date: Status : REG REF PHONE #: [phone] Exam Date: 1243 FAX #: Reason: SUBDURAL HEMATOMA EXAMS: CPT: [id number] CT HEAD/BRAIN W/O CONT 57548 <Continued> CC: Technologist: Irais Andujar, RT(R)(MR) CTDI: DLP: Trnscb Date/Time: 01/21 (0055) [email or web address] Orig Print D/T: S: 01/21/2019 (4566) PAGE 2 Signed Report
[2019-03-07 10:17] LABS: Absolute Lymphocytes (CBC) 0.8 K/uL (0.7-4.9); Basophils % 0.9 % (0-1.3); Hematocrit 29.1 % (39.6-49.0); Lymphocytes % 12.8 % (15.3-44.8)
[2019-03-07] MEDS ORDERED: NA CHLORIDE 0.9% 250 ML ONE (10:23)
[2019-03-07 10:34] LABS: Bilirubin Direct 0.2 mg/dL (0-0.2); Bilirubin Total 0.4 mg/dL (0.2-1.0); Potassium 4.3 mmol/L (3.5-5.1); Protein, Total 8.7 g/dL (6.4-8.2)
--- NOTE | 2019-03-07 11:30 | RAD REPORT ---
EXAM DESCRIPTION: CT - Abdomen Pelvis Wo Contrast - 03/07/2019 10:52 am CLINICAL HISTORY: Abdominal pain COMPARISON: None TECHNIQUE: Computed axial tomography of the abdomen and pelvis was obtained. IV and oral contrast we re not requested. All CT scans are performed using dose optimization technique as appropriate and may include automated exposure control or mA/KV adjustment according to patient size. FINDINGS: The evaluation of solid organs, vessels and bowel is limited secondary to the lack of con trast administration. The liver, pancreas and adrenals appear grossly normal. Splenic granulomata are seen. Small renal cysts. A 2 centimeter cystic mass extends off the posterior aspect of the left kidney dem onstrating increased density Mild bilateral hydronephrosis is present. . There is no evidence of diverticulitis. Marked bladder distention A percutaneous tube is present within the gastric body The rectum is mildly distended with stool. Spondylosis involves the lumbar spine resulting in spinal stenosis 20 millimeter gallstone. Gallbladder wall is not thickened IMPRESSION: Marked bladder distention. Mild bilateral hydronephrosis probably secondary to the blad chanda distention 2 centimeter complex cystic mass extending off of the left kidney probably benign. However, it is rec ommended that the patient have an ultrasound for further characterization
--- NOTE | 2019-03-07 13:54 | ER ---
Nurse's Notes [facility] Name: Stewart Jacques Age: 83 yrs Sex: Male : 1935 Arrival Date: 03/07/2019 Time: 09:00 Bed 14 Private MD: Diagnosis: Obstructed G-Tube Presentation: 03/07 09:00 Presenting complaint: EMS states: OBSTRUCTED G-TUBE. Transition of care: patient was bp received from another setting of care ([facility]), [facility]. Onset of symptoms was March 07, 2019. Risk Assessment: Do you want to hurt yourself or someone else? Patient reports no desire to harm self or others. Initial Sepsis Screen: Does the patient meet any 2 criteria? No. Patient's initial sepsis screen is negative. Does the patient have a suspected source of infection? No. Patient's initial sepsis screen is negative. Care prior to arrival: None. 09:00 Method Of Arrival: EMS: [facility] bp 09:00 Acuity: OPHELIA 3 bp Triage Assessment: 09:00 General: Appears in no apparent distress. comfortable, Behavior is AT BASELINE. Pain: bp Unable to use pain scale. Does not appear to understand pain scale. EENT: No deficits noted. Neuro: AT BASELINE. Cardiovascular: No deficits noted. Respiratory: No deficits noted. GI: PEG tube in place, clamped. Site clean. : No signs and/or symptoms were reported regarding the genitourinary system. Derm: No deficits noted. Musculoskeletal: No deficits noted. Historical: - Allergies: 09:06 No Known Allergies; bp - Home Meds: 09:06 metoprolol tartrate 100 mg Oral tab 1 tab 2 times per day [Active]; hydralazine 50 mg bp Oral tab 1 tab three times a day [Active]; Pravachol 40 mg Oral tab 1 tab once daily [Active]; aspirin 325 mg Oral TbEC 1 tab once daily [Active]; quetiapine 25 mg oral tab .5 tab nightly [Active]; - PMHx: 09:06 CVA; Renal Disease; Dementia; Hyperlipidemia; Atrial Fib; bp - Immunization history:: Adult Immunizations up to date. - Social history:: Smoking status: Patient/guardian denies using tobacco. - Ebola Screening: : No symptoms or risks identified at this time. Screenin:49 Abuse screen: Denies threats or abuse. Denies injuries from another. Nutritional bp screening: No deficits noted. Tuberculosis screening: No symptoms or risk factors identified. Fall Risk None identified. Assessment: 09:10 General: SEE TRIAGE NOTE. bp 10:59 Reassessment: PT RETURNED FROM RADIOLOGY. bp 12:12 Reassessment: AWAITING GI C/S FOR PEG REPLACEMENT. bp 12:53 Reassessment: PER GI, PT TO BE TRANSFERRED. bp 13:35 Reassessment: PT DIAPER CHANGED. PT FOUND TUGGING ON DE [place], [place]OUZA RE-SECURED AND PT bp RE-EDUCATED. PT EXPRESSED NO COMPREHENSION. 15:05 Reassessment: REPORT TO LISANDRO AYOUB AT [facility]. 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 bp 16:56 Reassessment: [facility] AT B/S FOR TRANSPORT. bp Vital Signs: 09:06 BP 111 / 87; Pulse 73; Resp 16; Temp 97.5; Pulse Ox 98% ; Weight 79.38 kg; bp 10:48 BP 107 / 71; Pulse 71; Resp 16; Pulse Ox 99% ; bp 12:13 BP 112 / 67; Pulse 83; Resp 16; Pulse Ox 97% ; bp 13:05 BP 136 / 86; Pulse 93; Resp 16; Pulse Ox 97% ; bp 15:05 BP 125 / 75; Pulse 88; Resp 16; Pulse Ox 100% ; bp 16:00 BP 134 / 94; Pulse 94; Resp 14; Pulse Ox 100% ; bp 16:56 BP 151 / 91; Pulse 94; Resp 16; Pulse Ox 99% ; bp ED Course: 09:00 Patient arrived in ED. bp 09:01 Triage completed. bp 09:06 Arm band placed on. bp 09:29 Seferino Gonzalez MD is Attending Physician. kdr 09:46 Serafin Huggins, ANTIRA is Primary Nurse. bp 10:00 Inserted saline lock: 22 gauge in left forearm, using aseptic technique. Blood bp collected. 10:49 Patient has correct armband on for positive identification. Bed in low position. Call bp light in reach. Side rails up X2. Adult w/ patient. 12:45 [place] cath inserted, using sterile technique, 18 Fr., by ga, balloon inflated, to bp gravity drainage, Patient tolerated well. 13:53 initiated a transfer with Gabrielle Last from the [facility]. eb 14:16 connected the GI veterinary practitioner Dr. Olivarez for [facility] with Dr. Gonzalez for patient eb transfer consultation. 14:31 connected the hospitalist veterinary practitioner for [facility] with Dr. Gonzalez for patient eb transfer consultation. 14:39 administrative approval given by Gabrielle Last/ patient has been accepted to [facility] bed 2123/ Dr. Vivas has accepted the patient in transfer/ report to be called to [phone]. 16:56 No provider procedures requiring assistance completed. Patient transferred, IV remains bp in place. Administered Medications: 10:15 Drug: NS 0.9% 250 ml Route: IV; Rate: bolus; Site: left forearm; bp 11:00 Follow up: IV Status: Completed infusion; IV Intake: 250ml bp Intake: 11:00 IV: 250ml; Total: 250ml. bp Outcome: 13:54 ER care complete, transfer ordered by . kdr 16:56 Transferred by [facility] to [facility], Transfer form bp completed. 16:56 Condition: stable 16:56 Instructed on the need for transfer. 17:15 Patient left the ED. bp Signatures: Seferino Gonzalez MD MD kdr Peltier, Brian, RN RN bp Gabrielle Noonan
--- NOTE | 2019-03-07 13:55 | EDPHYS ---
Physician Documentation [facility] Name: Stewart Jacques Age: 83 yrs Sex: Male : 1935 Arrival Date: 03/07/2019 Time: 09:00 Bed 14 Private MD: ED Physician Seferino Gonzalez HPI: 03/07 18:18 This 83 yrs old Male presents to ER via EMS with complaints of Obstructed kdr G-tube. 18:18 G-tube obstructed. Onset: The symptoms/episode began/occurred at an unknown time. kdr Severity of symptoms: At their worst the symptoms were moderate in the emergency department the symptoms are unchanged. It is unknown whether or not the patient has had similar symptoms in the past. It is unknown whether or not the patient has recently seen a physician. Historical: - Allergies: 09:06 No Known Allergies; bp - Home Meds: :06 metoprolol tartrate 100 mg Oral tab 1 tab 2 times per day [Active]; hydralazine 50 mg bp Oral tab 1 tab three times a day [Active]; Pravachol 40 mg Oral tab 1 tab once daily [Active]; aspirin 325 mg Oral TbEC 1 tab once daily [Active]; quetiapine 25 mg oral tab .5 tab nightly [Active]; - PMHx: 09:06 CVA; Renal Disease; Dementia; Hyperlipidemia; Atrial Fib; bp - Immunization history:: Adult Immunizations up to date. - Social history:: Smoking status: Patient/guardian denies using tobacco. - Ebola Screening: : No symptoms or risks identified at this time. ROS: 18:18 Constitutional: the patient has severe dementia and is unable to give a history Eyes: kdr Negative for injury, pain, redness, and discharge, Neck: Negative for injury, pain, and swelling. 18:18 Unable to obtain ROS due to baseline dementia. Exam: 18:18 Constitutional: This is a well developed, well nourished patient who is awake, alert, kdr and in no acute distress. Head/Face: Normocephalic, atraumatic. Neck: Trachea midline, no thyromegaly or masses palpated, and no cervical lymphadenopathy. Supple, full range of motion without nuchal rigidity, or vertebral point tenderness. No Meningismus. Chest/axilla: Normal chest wall appearance and motion. Nontender with no deformity. No lesions are appreciated. Cardiovascular: Regular rate and rhythm with a normal S1 and S2. No gallops, murmurs, or rubs. Normal PMI, no JVD. No pulse deficits. Respiratory: Lungs have equal breath sounds bilaterally, clear to auscultation and percussion. No rales, rhonchi or wheezes noted. No increased work of breathing, no retractions or nasal flaring. Back: No spinal tenderness. No costovertebral tenderness. Full range of motion. Skin: Warm, dry with normal turgor. Normal color with no rashes, no lesions, and no evidence of cellulitis. 18:18 Abdomen/GI: Inspection: distension, obese Bowel sounds: diminished, in all quadrants, Palpation: mild abdominal tenderness, in all quadrants, rebound tenderness, is not appreciated, voluntary guarding, is not appreciated, involuntary guarding, is not appreciated. Vital Signs: 09:06 BP 111 / 87; Pulse 73; Resp 16; Temp 97.5; Pulse Ox 98% ; Weight 79.38 kg; bp 10:48 BP 107 / 71; Pulse 71; Resp 16; Pulse Ox 99% ; bp 12:13 BP 112 / 67; Pulse 83; Resp 16; Pulse Ox 97% ; bp 13:05 BP 136 / 86; Pulse 93; Resp 16; Pulse Ox 97% ; bp 15:05 BP 125 / 75; Pulse 88; Resp 16; Pulse Ox 100% ; bp 16:00 BP 134 / 94; Pulse 94; Resp 14; Pulse Ox 100% ; bp 16:56 BP 151 / 91; Pulse 94; Resp 16; Pulse Ox 99% ; bp MDM: 13:54 Patient medically screened. kdr 13:54 Data reviewed: vital signs, nurses notes, lab test result(s), radiologic studies. kdr Counseling: I had a detailed discussion with the patient and/or guardian regarding: the historical points, exam findings, and any diagnostic results supporting the discharge/admit diagnosis, lab results, radiology results, the need to transfer to another facility. 13:54 Physician consultation: Kirby Quan MD. kdr 03/07 09:44 Order name: Basic Metabolic Panel kdr 03/07 09:44 Order name: CBC with Diff kdr 03/07 09:44 Order name: Creatinine for Radiology kdr 03/07 09:44 Order name: Hepatic Function kdr 03/07 09:44 Order name: Lipase kdr 03/07 10:20 Order name: CBC with Automated Diff; Complete Time: 11:03 EDMI 03/07 09:44 Order name: IV Saline Lock; Complete Time: 10:49 [facility] 03/07 09:45 Order name: CT Abd/Pelvis - IV Contrast Only kdr 03/07 10:31 Order name: Creatinine (Radiology Only); Complete Time: 11:03 EDMI 03/07 10:34 Order name: Basic Metabolic Panel; Complete Time: 11:03 EDMI 03/07 10:34 Order name: Liver (Hepatic) Function; Complete Time: 11:03 EDMI 03/07 10:34 Order name: Lipase; Complete Time: 11:03 EDMI 03/07 11:33 Order name: CT; Complete Time: 12:23 EDMI 03/07 09:44 Order name: Labs collected and sent; Complete Time: 10:50 kdr 03/07 09:44 Order name: Misc. Order: Flush G-tube; Complete Time: 11:17 [facility] 03/07 12:32 Order name: Abarca; Complete Time: 12:53 kdr Administered Medications: 10:15 Drug: NS 0.9% 250 ml Route: IV; Rate: bolus; Site: left forearm; bp 11:00 Follow up: IV Status: Completed infusion; IV Intake: 250ml bp Disposition: 03/07/19 13:54 Transfer ordered to [facility]. Diagnosis is Obstructed G-Tube. - Reason for transfer: Higher level of care. - Accepting physician is GI . - Condition is Fair. - Problem is new. - Symptoms are unchanged. Signatures: Dispatcher [employer] [facility] Seferino Gonzalez MD MD kdr Serafin Huggins, RN RN bp Corrections: (The following items were deleted from the chart) 17:15 13:54 03/07/2019 13:54 Transfer ordered to [facility]. Diagnosis is bp Obstructed G-Tube. Reason for transfer: Higher level of care. Accepting physician is GI . Condition is Fair. Problem is new. Symptoms are unchanged. kdr
[2019-03-07 21:52] VITALS: TEMP 97.5
[2019-03-07 22:00] VITALS: BP 151/91; O2SAT 99
== END 2019-03-07 17:15 | disposition short-term general hospital (02) ==
LOC: ER 08:57
DX: K94.23 Gastrostomy malfunction (principal); F03.90 Unspecified dementia, unspecified severity, without behavioral disturbance, psychotic disturbance, mood disturbance, and anxiety; I48.91 Unspecified atrial fibrillation; E78.5 Hyperlipidemia, unspecified; Z79.82 Long term (current) use of aspirin
CPT/HCPCS: 85025; 80048; 36415; 80076; 83690; 74176; 51702; 96360; 99285; J7030; 96365

== ENCOUNTER 2019-03-25 10:38 | Emergency (ER) | payer OTHER ==
--- OUTSIDE RECORDS SUMMARY | 2019-03-25 10:42 | XMS REPORT ---
:1935 [facility] Address [address] [place] [address] Care Team Providers Name Role Phone JJ EDMONDS Unavailable Unavailable Payers Payer Name Policy Type Policy Number Effective Date Expiration Date Problems This patient has no known problems. Allergies, Adverse Reactions, Alerts Allergy Allergy Status Severity Reaction(s) Onset Inactive Treating Comments Name Type Date Date Clinician No Known DA Active U 2019-01 Allergies -22 00:00:0 0 Medications This patient has no known medications. Results Test Description Test Time Test Comments Text Results Atomic Results Result Comments U/S, RENAL, 2019-03-11 11:24:00 Reason for FINAL REPORT PATIENT ID: COMPLETE exam:->YANNICK [id number] TECHNIQUE: Grayscale ultrasound of the kidneys and bladder. INDICATION: 83-year-old man with acute kidney injury. COMPARISON: None. FINDINGS: RIGHT KIDNEY: The right kidney is echogenic and measures 9.6 x 5.9 x 5.3 cm. Cortical thickness measures 1.6 cm. No solid mass lesions. No hydronephrosis. Renal artery and vein are patent. LEFT KIDNEY: The left kidney is echogenic and measures 12.5 x 6.3 x 5.6 cm. Cortical thickness measures 1.5 cm. No solid mass lesions. Simple left renal cyst measures 2.6 x 2.1 x 2.9 cm. No hydronephrosis. Renal artery and vein are patent. BLADDER: Unremarkable. Abarca catheter tip terminates within the prostatic urethra. IMPRESSION:Echogenic kidneys, consistent with medical renal disease. No hydronephrosis. Abarca catheter tip terminates within the prostatic urethra. Consider advancement into the bladder. Signed: Lobito Riojas MDReport Verified Date/Time: 03/11/2019 11:24:38 Reading Location: [address] Radiology Reading Room , ABDOMEN/KUB, 2019-03-10 15:36:[address] FINAL REPORT PATIENT ID: 1 VIEW AP Bharti. Please [phone] RAD, ABDOMEN/KUB, 1 obtain xrays before VIEW AP CLINICAL INDICATION: and after injection PEG tube placement of water soluble COMPARISON: None TECHNIQUE: contrast through Single, frontal radiograph the PEG tube.Reason of the abdomen. IMPRESSION: for exam:->PEG tube A feeding tube has been placement placed. The retention balloon projects over the expected location of the gastric lumen, which is collapsed. No dilated loops or small bowel are evident. There is a moderate to large colonic stool burden which may suggest constipation. Signed: JR Hidalgo Robert MDReport Verified Date/Time: 03/10/2019 15:36:47 Reading Location: [facility] Radiology Reading Room ESIUM 2019-03-10 07:38:00 Test Item Value Reference Range Comments MAGNESIUM (BEAKER) (test gwfc=828) 1.8 mg/dL 1.6-2.6 Specimen slightly hemolyzed [id number] 07:38:00 Test Item Value Reference Range Comments PHOSPHORUS (BEAKER) (test 2.8 mg/dL 2.3-4.7 Specimen slightly hemolyzed sphc=177) BASIC METABOLIC [id number] 07:38:00 Test Item Value Reference Range Comments SODIUM (BEAKER) (test 142 meq/L 136-145 lmjv=539) POTASSIUM (BEAKER) (test 4.7 meq/L 3.5-5.1 Specimen slightly dlol=047) hemolyzed CHLORIDE (BEAKER) (test 112 meq/L 98-107 hbke=106) CO2 (BEAKER) (test 24 meq/L 22-29 plap=832) BLOOD UREA NITROGEN 25 mg/dL 7-21 (BEAKER) (test qzbr=844) CREATININE (BEAKER) (test 1.86 mg/dL 0.57-1.25 Specimen slightly qerp=710) hemolyzed GLUCOSE RANDOM (BEAKER) 122 mg/dL 70-105 (test xjmi=184) CALCIUM (BEAKER) (test 9.5 mg/dL 8.4-10.2 yfto=827) EGFR (BEAKER) (test 35 mL/min/1.73 sq m ESTIMATED GFR IS NOT urmj=4967) ACCURATE CREATININE CLEARANCE IN PREDICTING GLOMERULAR FILTRATION RATE. ESTIMATED GFR IS NOT APPLICABLE FOR DIALYSIS PATIENTS. HEPATIC FUNCTION [id number] 07:38:00 Test Item Value Reference Range Comments TOTAL PROTEIN (BEAKER) (test 7.4 gm/dL 6.0-8.3 Specimen slightly hemolyzed uafd=228) ALBUMIN (BEAKER) (test 3.0 g/dL 3.5-5.0 Specimen slightly hemolyzed aaon=3639) BILIRUBIN TOTAL (BEAKER) (test 0.6 mg/dL 0.2-1.2 Specimen slightly hemolyzed zfft=621) BILIRUBIN DIRECT (BEAKER) (test 0.3 mg/dL 0.1-0.5 Specimen slightly hemolyzed vuil=104) ALKALINE PHOSPHATASE (BEAKER) 67 U/L 40-150 (test ykud=624) AST (SGOT) (BEAKER) (test 21 U/L 5-34 Specimen slightly hemolyzed zzav=107) ALT (SGPT) (BEAKER) (test 13 U/L 6-55 Specimen slightly hemolyzed jlwm=031) CBC W/PLT COUNT & AUTO [id number] 05:18:00 Test Item Value Reference Range Comments WHITE BLOOD CELL COUNT (BEAKER) (test bgzb=138) 6.7 K/ L 3.5-10.5 RED BLOOD CELL COUNT (BEAKER) (test lemw=529) 2.54 M/ L 4.63-6.08 HEMOGLOBIN (BEAKER) (test aafy=019) 7.9 GM/DL 13.7-17.5 HEMATOCRIT (BEAKER) (test yktr=947) 25.7 % 40.1-51.0 MEAN CORPUSCULAR VOLUME (BEAKER) (test digh=600) 101.2 fL 79.0-92.2 MEAN CORPUSCULAR HEMOGLOBIN (BEAKER) (test 31.1 pg 25.7-32.2 ysnd=377) MEAN CORPUSCULAR HEMOGLOBIN CONC (BEAKER) (test 30.7 GM/DL 32.3-36.5 tnyq=132) RED CELL DISTRIBUTION WIDTH (BEAKER) (test 14.4 % 11.6-14.4 rncf=269) PLATELET COUNT (BEAKER) (test dihr=369) 295 K/CU MM 150-450 MEAN PLATELET VOLUME (BEAKER) (test hune=897) 9.4 fL 9.4-12.4 NUCLEATED RED BLOOD CELLS (BEAKER) (test 0 /100 WBC 0-0 ucpr=976) NEUTROPHILS RELATIVE PERCENT (BEAKER) (test 77 % fkih=447) LYMPHOCYTES RELATIVE PERCENT (BEAKER) (test 11 % hmry=533) MONOCYTES RELATIVE PERCENT (BEAKER) (test 9 % hisg=951) EOSINOPHILS RELATIVE PERCENT (BEAKER) (test 3 % durb=580) BASOPHILS RELATIVE PERCENT (BEAKER) (test 1 % ilcm=423) NEUTROPHILS ABSOLUTE COUNT (BEAKER) (test 5.10 K/ L 1.78-5.38 jctd=668) LYMPHOCYTES ABSOLUTE COUNT (BEAKER) (test 0.73 K/ L 1.32-3.57 eulo=081) MONOCYTES ABSOLUTE COUNT (BEAKER) (test 0.59 K/ L 0.30-0.82 jsmx=776) EOSINOPHILS ABSOLUTE COUNT (BEAKER) (test 0.19 K/ L 0.04-0.54 yfuz=566) BASOPHILS ABSOLUTE COUNT (BEAKER) (test 0.04 K/ L 0.01-0.08 javd=378) IMMATURE GRANULOCYTES-RELATIVE PERCENT (BEAKER) 0 % 0-1 (test fzcr=2427) [id number] 07:28:00 Test Item Value Reference Range Comments PHOSPHORUS (BEAKER) (test npah=278) 3.3 mg/dL 2.3-4.7 [id number] 07:28:00 Test Item Value Reference Range Comments MAGNESIUM (BEAKER) (test jjdy=025) 1.9 mg/dL 1.6-2.6 BASIC METABOLIC [id number] 07:28:00 Test Item Value Reference Range Comments SODIUM (BEAKER) (test 141 meq/L 136-145 akuo=891) POTASSIUM (BEAKER) (test 4.8 meq/L 3.5-5.1 udgm=218) CHLORIDE (BEAKER) (test 109 meq/L 98-107 kisv=291) CO2 (BEAKER) (test 25 meq/L 22-29 ajis=902) BLOOD UREA NITROGEN 31 mg/dL 7-21 (BEAKER) (test lisr=473) CREATININE (BEAKER) (test 2.13 mg/dL 0.57-1.25 safy=782) GLUCOSE RANDOM (BEAKER) 109 mg/dL 70-105 (test xrzg=928) CALCIUM (BEAKER) (test 9.4 mg/dL 8.4-10.2 sowy=241) EGFR (BEAKER) (test 30 mL/min/1.73 sq m ESTIMATED GFR IS NOT wsap=7446) ACCURATE CREATININE CLEARANCE IN PREDICTING GLOMERULAR FILTRATION RATE. ESTIMATED GFR IS NOT APPLICABLE FOR DIALYSIS PATIENTS. HEPATIC FUNCTION [id number] 07:28:00 Test Item Value Reference Range Comments TOTAL PROTEIN (BEAKER) (test wbgj=118) 7.5 gm/dL 6.0-8.3 ALBUMIN (BEAKER) (test jpdc=5338) 3.1 g/dL 3.5-5.0 BILIRUBIN TOTAL (BEAKER) (test pimx=636) 0.6 mg/dL 0.2-1.2 BILIRUBIN DIRECT (BEAKER) (test wbbc=541) 0.4 mg/dL 0.1-0.5 ALKALINE PHOSPHATASE (BEAKER) (test efcf=810) 75 U/L 40-150 AST (SGOT) (BEAKER) (test vgsl=480) 19 U/L 5-34 ALT (SGPT) (BEAKER) (test smtj=047) 15 U/L 6-55 CBC W/PLT COUNT & AUTO [id number] 06:42:00 Test Item Value Reference Range Comments WHITE BLOOD CELL COUNT (BEAKER) (test mjsl=794) 6.8 K/ L 3.5-10.5 RED BLOOD CELL COUNT (BEAKER) (test xzab=196) 2.63 M/ L 4.63-6.08 HEMOGLOBIN (BEAKER) (test hrlf=795) 8.3 GM/DL 13.7-17.5 HEMATOCRIT (BEAKER) (test rlga=816) 26.8 % 40.1-51.0 MEAN CORPUSCULAR VOLUME (BEAKER) (test vcru=771) 101.9 fL 79.0-92.2 MEAN CORPUSCULAR HEMOGLOBIN (BEAKER) (test 31.6 pg 25.7-32.2 ubdy=707) MEAN CORPUSCULAR HEMOGLOBIN CONC (BEAKER) (test 31.0 GM/DL 32.3-36.5 iran=432) RED CELL DISTRIBUTION WIDTH (BEAKER) (test 14.5 % 11.6-14.4 fsmk=912) PLATELET COUNT (BEAKER) (test xbyb=744) 310 K/CU MM 150-450 MEAN PLATELET VOLUME (BEAKER) (test tzgs=927) 9.6 fL 9.4-12.4 NUCLEATED RED BLOOD CELLS (BEAKER) (test 0 /100 WBC 0-0 amyz=634) NEUTROPHILS RELATIVE PERCENT (BEAKER) (test 73 % pqkj=669) LYMPHOCYTES RELATIVE PERCENT (BEAKER) (test 13 % hjhm=335) MONOCYTES RELATIVE PERCENT (BEAKER) (test 10 % pgeh=056) EOSINOPHILS RELATIVE PERCENT (BEAKER) (test 3 % llqn=305) BASOPHILS RELATIVE PERCENT (BEAKER) (test 1 % lqfg=828) NEUTROPHILS ABSOLUTE COUNT (BEAKER) (test 4.93 K/ L 1.78-5.38 yyqw=036) LYMPHOCYTES ABSOLUTE COUNT (BEAKER) (test 0.87 K/ L 1.32-3.57 ceiv=057) MONOCYTES ABSOLUTE COUNT (BEAKER) (test 0.67 K/ L 0.30-0.82 wnwz=850) EOSINOPHILS ABSOLUTE COUNT (BEAKER) (test 0.18 K/ L 0.04-0.54 ytrn=506) BASOPHILS ABSOLUTE COUNT (BEAKER) (test 0.07 K/ L 0.01-0.08 oicc=220) IMMATURE GRANULOCYTES-RELATIVE PERCENT (BEAKER) 1 % 0-1 (test loop=7219) URINALYSIS W/ REFLEX URINE [id number] 07:45:00 Test Item Value Reference Range Comments COLOR (BEAKER) (test nggh=958) [place] CLARITY (BEAKER) (test egdq=778) Hazy SPECIFIC GRAVITY UA (BEAKER) (test cwsl=870) 1.012 1.001-1.035 PH UA (BEAKER) (test scjd=437) 6.5 5.0-8.0 PROTEIN UA (BEAKER) (test bhop=595) 100 mg/dL Negative GLUCOSE UA (BEAKER) (test coaw=987) Negative Negative KETONES UA (BEAKER) (test imyj=284) Negative Negative BILIRUBIN UA (BEAKER) (test tqkg=910) Negative Negative BLOOD UA (BEAKER) (test umxg=924) Large Negative NITRITE UA (BEAKER) (test gpze=464) Negative Negative LEUKOCYTE ESTERASE UA (BEAKER) (test fkxv=629) Moderate Negative UROBILINOGEN UA (BEAKER) (test folr=368) 0.2 mg/dL 0.2-1.0 RBC UA (BEAKER) (test mjno=358) 586 /HPF WBC UA (BEAKER) (test debx=070) 265 /HPF SOURCE(BEAKER) (test dori=1940) BASIC METABOLIC [id number] 06:52:00 Test Item Value Reference Range Comments SODIUM (BEAKER) (test 140 meq/L 136-145 vmtu=881) POTASSIUM (BEAKER) (test 4.7 meq/L 3.5-5.1 Specimen moderately tmbv=637) hemolyzed CHLORIDE (BEAKER) (test 103 meq/L 98-107 tuab=968) CO2 (BEAKER) (test 28 meq/L 22-29 jbsy=172) BLOOD UREA NITROGEN 40 mg/dL 7-21 (BEAKER) (test cbkg=639) CREATININE (BEAKER) (test 2.24 mg/dL 0.57-1.25 Specimen moderately talu=502) hemolyzed GLUCOSE RANDOM (BEAKER) 119 mg/dL 70-105 (test txiy=405) CALCIUM (BEAKER) (test 10.0 mg/dL 8.4-10.2 fpov=899) EGFR (BEAKER) (test 28 mL/min/1.73 sq m ESTIMATED GFR IS NOT lkpn=9041) ACCURATE CREATININE CLEARANCE IN PREDICTING GLOMERULAR FILTRATION RATE. ESTIMATED GFR IS NOT APPLICABLE FOR DIALYSIS PATIENTS. [id number] 06:41:00 Test Item Value Reference Range Comments MAGNESIUM (BEAKER) (test 2.1 mg/dL 1.6-2.6 Specimen moderately hemolyzed xnav=063) [id number] 06:41:00 Test Item Value Reference Range Comments PHOSPHORUS (BEAKER) (test 4.2 mg/dL 2.3-4.7 Specimen moderately hemolyzed qnea=989) HEPATIC FUNCTION [id number] 06:41:00 Test Item Value Reference Range Comments TOTAL PROTEIN (BEAKER) (test 8.0 gm/dL 6.0-8.3 Specimen moderately hemolyzed qiid=498) ALBUMIN (BEAKER) (test 3.1 g/dL 3.5-5.0 Specimen moderately hemolyzed klzt=7358) BILIRUBIN TOTAL (BEAKER) (test 0.5 mg/dL 0.2-1.2 Specimen moderately hemolyzed bshj=672) BILIRUBIN DIRECT (BEAKER) 0.2 mg/dL 0.1-0.5 Specimen moderately hemolyzed (test xjnx=448) ALKALINE PHOSPHATASE (BEAKER) 87 U/L 40-150 (test xhxw=570) AST (SGOT) (BEAKER) (test 39 U/L 5-34 Specimen moderately hemolyzed npgc=802) ALT (SGPT) (BEAKER) (test 22 U/L 6-55 Specimen moderately hemolyzed dfpl=481) CBC W/PLT COUNT & AUTO [id number] 06:20:00 Test Item Value Reference Range Comments WHITE BLOOD CELL COUNT (BEAKER) (test wlav=623) 8.0 K/ L 3.5-10.5 RED BLOOD CELL COUNT (BEAKER) (test aisl=500) 2.74 M/ L 4.63-6.08 HEMOGLOBIN (BEAKER) (test yohf=375) 8.8 GM/DL 13.7-17.5 HEMATOCRIT (BEAKER) (test yljv=148) 27.7 % 40.1-51.0 MEAN CORPUSCULAR VOLUME (BEAKER) (test jpin=256) 101.1 fL 79.0-92.2 MEAN CORPUSCULAR HEMOGLOBIN (BEAKER) (test 32.1 pg 25.7-32.2 awai=795) MEAN CORPUSCULAR HEMOGLOBIN CONC (BEAKER) (test 31.8 GM/DL 32.3-36.5 gfdv=043) RED CELL DISTRIBUTION WIDTH (BEAKER) (test 14.6 % 11.6-14.4 kfkm=831) PLATELET COUNT (BEAKER) (test vrhk=715) 365 K/CU MM 150-450 MEAN PLATELET VOLUME (BEAKER) (test edrp=522) 9.4 fL 9.4-12.4 NUCLEATED RED BLOOD CELLS (BEAKER) (test 0 /100 WBC 0-0 xkoo=083) NEUTROPHILS RELATIVE PERCENT (BEAKER) (test 74 % haiv=579) LYMPHOCYTES RELATIVE PERCENT (BEAKER) (test 12 % qeiw=729) MONOCYTES RELATIVE PERCENT (BEAKER) (test 11 % jymr=464) EOSINOPHILS RELATIVE PERCENT (BEAKER) (test 2 % bsyw=643) BASOPHILS RELATIVE PERCENT (BEAKER) (test 1 % qklr=635) NEUTROPHILS ABSOLUTE COUNT (BEAKER) (test 5.89 K/ L 1.78-5.38 vlqd=873) LYMPHOCYTES ABSOLUTE COUNT (BEAKER) (test 0.94 K/ L 1.32-3.57 gajy=569) MONOCYTES ABSOLUTE COUNT (BEAKER) (test 0.86 K/ L 0.30-0.82 kypj=076) EOSINOPHILS ABSOLUTE COUNT (BEAKER) (test 0.19 K/ L 0.04-0.54 pyds=681) BASOPHILS ABSOLUTE COUNT (BEAKER) (test 0.07 K/ L 0.01-0.08 vxae=811) IMMATURE GRANULOCYTES-RELATIVE PERCENT (BEAKER) 0 % 0-1 (test mjuv=7686) GLUCOSE BEDSIDE [id number] 13:57:00 Test Item Value Reference Range Comments GLUCOSE BEDSIDE TESTING (test code=GLUBED) 155 mg/dL 70-110 GLUCOSE BEDSIDE [id number] 10:46:00 Test Item Value Reference Range Comments GLUCOSE BEDSIDE TESTING (test code=GLUBED) 122 mg/dL 70-110 GLUCOSE BEDSIDE [id number] 08:20:00 Test Item Value Reference Range Comments GLUCOSE BEDSIDE TESTING (test code=GLUBED) 149 mg/dL 70-110 BASIC METABOLIC [id number] 06:18:00 Test Item Value Reference Range Comments [...] 0.8-1.3 CALCIUM (test code=CA) 8.7 MG/DL 8.5-10.1 [id number] 06:18:00 Test Item Value Reference Range Comments PHOSPHOROUS (test code=PHOS) 3.2 MG/DL 2.5-4.9 [id number] 06:18:00 Test Item Value Reference Range Comments MAGNESIUM (test code=MAG) 2.5 MG/DL 1.8-2.4 HGB [id number] 06:04:00 Test Item Value Reference Range Comments HEMOGLOBIN (test code=HGB) 8.4 G/DL 12.3-15.9 HEMATOCRIT (test code=HCT) 26.8 % 35.8-46.7 GLUCOSE BEDSIDE [id number] 18:27:00 Test Item Value Reference Range Comments GLUCOSE BEDSIDE TESTING (test code=GLUBED) 144 mg/dL 70-110 - XR ABDOMEN 1 [id number] 15:20:00 Name: CHEYENNE MACHADO JR [facility] : 1935 Age/S: 83 / M [address] Unit #: [id number] Loc: [place] [address] Phys: Erin Bird MD Acct: [id number] Dis Date: Status: ADM IN PHONE #: [phone] Exam Date: 02/24/2019 1315 FAX #: Reason: CONSTIPATION? EXAMS: CPT: [id number] XR ABDOMEN 1 V 21601 Fluoro Time: DAP (Gy m2): Air Kerma [...] JR : 1935 Age/S: 83 / M [address] Unit #: [id number] Loc: [place] [address] Phys: Erin Bird MD Acct: [id number] Dis Date: Status: ADM IN PHONE #: [phone] Exam Date: 02/24/2019 1315 FAX #: Reason : CONSTIPATION? EXAMS: CPT: [id number] XR ABDOMEN 1 V 70544 Fluoro Time : DAP (Gy m2): Air Kerma (mGy): <Continued> Technologist: Indiana Renteria, RT(R) Trnscb Date /Time: 02/24/2019 (152) [id number] Orig Print D/T: S: (9189) PAGE 2 Signed ReportGLUCOSE BEDSIDE [id number] 11:51:00 Test Item Value Reference Range Comments GLUCOSE BEDSIDE TESTING (test code=GLUBED) 108 mg/dL 70-110 GLUCOSE BEDSIDE [id number] 07:50:00 Test Item Value Reference Range Comments GLUCOSE BEDSIDE TESTING (test code=GLUBED) 113 mg/dL 70-110 GLUCOSE BEDSIDE [id number] 17:26:00 Test Item Value Reference Range Comments GLUCOSE BEDSIDE TESTING (test code=GLUBED) 149 mg/dL 70-110 GLUCOSE BEDSIDE [id number] 11:50:00 Test Item Value Reference Range Comments GLUCOSE BEDSIDE TESTING (test code=GLUBED) 187 mg/dL 70-110 GLUCOSE BEDSIDE [id number] 08:44:00 Test Item Value Reference Range Comments GLUCOSE BEDSIDE TESTING (test code=GLUBED) 118 mg/dL 70-110 GLUCOSE BEDSIDE [id number] 17:36:00 Test Item Value Reference Range Comments GLUCOSE BEDSIDE TESTING (test code=GLUBED) 164 mg/dL 70-110 GLUCOSE BEDSIDE [id number] 12:40:00 Test Item Value Reference Range Comments GLUCOSE BEDSIDE TESTING (test code=GLUBED) 146 mg/dL 70-110 GLUCOSE BEDSIDE [id number] 08:06:00 Test Item Value Reference Range Comments GLUCOSE BEDSIDE TESTING (test code=GLUBED) 173 mg/dL 70-110 GLUCOSE BEDSIDE [id number] 06:11:00 Test Item Value Reference Range Comments GLUCOSE BEDSIDE TESTING (test code=GLUBED) 88 mg/dL 70-110 GLUCOSE BEDSIDE [id number] 00:02:00 Test Item Value Reference Range Comments GLUCOSE BEDSIDE TESTING (test code=GLUBED) 111 mg/dL 70-110 GLUCOSE BEDSIDE [id number] 18:27:00 Test Item Value Reference Range Comments GLUCOSE BEDSIDE TESTING (test code=GLUBED) 148 mg/dL 70-110 GLUCOSE BEDSIDE [id number] 05:52:00 Test Item Value Reference Range Comments GLUCOSE BEDSIDE TESTING (test code=GLUBED) 99 mg/dL 70-110 GLUCOSE BEDSIDE [id number] 21:07:00 Test Item Value Reference Range Comments GLUCOSE BEDSIDE TESTING (test code=GLUBED) 147 mg/dL 70-110 GLUCOSE BEDSIDE [id number] 16:45:00 Test Item Value Reference Range Comments GLUCOSE BEDSIDE TESTING (test code=GLUBED) 95 mg/dL 70-110 GLUCOSE BEDSIDE [id number] 13:37:00 Test Item Value Reference Range Comments GLUCOSE BEDSIDE TESTING (test code=GLUBED) 104 mg/dL 70-110 GLUCOSE BEDSIDE [id number] 06:06:00 Test Item Value Reference Range Comments GLUCOSE BEDSIDE TESTING (test code=GLUBED) 124 mg/dL 70-110 GLUCOSE BEDSIDE [id number] 20:49:00 Test Item Value Reference Range Comments GLUCOSE BEDSIDE TESTING (test code=GLUBED) 139 mg/dL 70-110 GLUCOSE BEDSIDE [id number] 16:56:00 Test Item Value Reference Range Comments GLUCOSE BEDSIDE TESTING (test code=GLUBED) 150 mg/dL 70-110 GLUCOSE BEDSIDE [id number] 12:38:00 Test Item Value Reference Range Comments GLUCOSE BEDSIDE TESTING (test code=GLUBED) 116 mg/dL 70-110 GLUCOSE BEDSIDE [id number] 08:10:00 Test Item Value Reference Range Comments GLUCOSE BEDSIDE TESTING (test code=GLUBED) 142 mg/dL 70-110 GLUCOSE BEDSIDE [id number] 21:28:00 Test Item Value Reference Range Comments GLUCOSE BEDSIDE TESTING (test code=GLUBED) 85 mg/dL 70-110 GLUCOSE BEDSIDE [id number] 16:32:00 Test Item Value Reference Range Comments GLUCOSE BEDSIDE TESTING (test code=GLUBED) 158 mg/dL 70-110 GLUCOSE BEDSIDE [id number] 12:21:00 Test Item Value Reference Range Comments GLUCOSE BEDSIDE TESTING (test code=GLUBED) 90 mg/dL 70-110 GLUCOSE BEDSIDE [id number] 08:27:00 Test Item Value Reference Range Comments GLUCOSE BEDSIDE TESTING (test code=GLUBED) 159 mg/dL 70-110 GLUCOSE BEDSIDE [id number] 16:26:00 Test Item Value Reference Range Comments GLUCOSE BEDSIDE TESTING (test code=GLUBED) 195 mg/dL 70-110 GLUCOSE BEDSIDE [id number] 11:20:00 Test Item Value Reference Range Comments GLUCOSE BEDSIDE TESTING (test code=GLUBED) 92 mg/dL 70-110 GLUCOSE BEDSIDE [id number] 07:43:00 Test Item Value Reference Range Comments GLUCOSE BEDSIDE TESTING (test code=GLUBED) 90 mg/dL 70-110 GLUCOSE BEDSIDE [id number] 20:08:00 Test Item Value Reference Range Comments GLUCOSE BEDSIDE TESTING (test code=GLUBED) 143 mg/dL 70-110 GLUCOSE BEDSIDE [id number] 16:41:00 Test Item Value Reference Range Comments GLUCOSE BEDSIDE TESTING (test code=GLUBED) 120 mg/dL 70-110 GLUCOSE BEDSIDE [id number] 12:37:00 Test Item Value Reference Range Comments GLUCOSE BEDSIDE TESTING (test code=GLUBED) 93 mg/dL 70-110 GLUCOSE BEDSIDE [id number] 08:29:00 Test Item Value Reference Range Comments GLUCOSE BEDSIDE TESTING (test code=GLUBED) 98 mg/dL 70-110 GLUCOSE BEDSIDE [id number] 18:03:00 Test Item Value Reference Range Comments GLUCOSE BEDSIDE TESTING (test code=GLUBED) 93 mg/dL 70-110 - XR ABDOMEN 1 [id number] 16:33:00 Name: MACHADO CHEYENNE [facility] [place] : 1935 Age/S: 83 / M [address] Unit #: [id number] Loc: [place] [address] Phys: Marybeth Pizano MD Acct: [id number] Dis Date: Status: ADM IN PHONE #: [phone] Exam Date: 02/14/2019 1610 FAX #: Reason: ABDOMINAL DISTENSION , INCREASE RISIDUAL FEEDING EXAMS: CPT: [id number] XR ABDOMEN 1 V 01063 Fluoro Time: DAP (Gy m2): Air Kerma [...] 1 Signed Report Name: CHEYENNE MACHADO JR [facility] : 1935 Age/S: 83 / M [address] [facility] Unit #: [id number] Loc: [place] [address] Phys: Marybeth Pizano MD Acct: [id number] Dis Date: Status: ADM IN PHONE #: [phone] Exam Date: 02/14/2019 1610 FAX #: Reason: ABDOMINAL DISTENSION, INCREASE RISIDUAL FEEDING EXAMS: CPT: [id number] XR ABDOMEN 1 V 97565 Fluoro Time: DAP (Gy m2): Air Kerma (mGy): <Continued> Technologist: Paras ReynagaRT(R)(CT); ... Trnscb Date/Time: 02/14/2019 (1633) [email or web address] Orig Print D/T: S: 02/14/2019 (1636) PAGE 2 Signed ReportGLUCOSE BEDSIDE [id number] 11:34 :00 Test Item Value Reference Range Comments GLUCOSE BEDSIDE TESTING (test code=GLUBED) 113 mg/dL 70-110 GLUCOSE BEDSIDE [id number] 08:16:00 Test Item Value Reference Range Comments GLUCOSE BEDSIDE TESTING (test code=GLUBED) 142 mg/dL 70-110 GLUCOSE BEDSIDE [id number] 06:15:00 Test Item Value Reference Range Comments GLUCOSE BEDSIDE TESTING (test code=GLUBED) 95 mg/dL 70-110 BASIC METABOLIC [id number] 06:06:00 Test Item Value Reference Range Comments [...] 0.8-1.3 CALCIUM (test code=CA) 9.4 MG/DL 8.5-10.1 [id number] 06:06:00 Test Item Value Reference Range Comments PHOSPHOROUS (test code=PHOS) 3.6 MG/DL 2.5-4.9 BASIC METABOLIC [id number] 06:06:00 Test Item Value Reference Range Comments [...] 0.8-1.3 CALCIUM (test code=CA) 9.4 MG/DL 8.5-10.1 [id number] 06:06:00 Test Item Value Reference Range Comments PHOSPHOROUS (test code=PHOS) 3.6 MG/DL 2.5-4.9 GLUCOSE BEDSIDE [id number] 20:39:00 Test Item Value Reference Range Comments GLUCOSE BEDSIDE TESTING (test code=GLUBED) 165 mg/dL 70-110 GLUCOSE BEDSIDE [id number] 16:26:00 Test Item Value Reference Range Comments GLUCOSE BEDSIDE TESTING (test code=GLUBED) 110 mg/dL 70-110 GLUCOSE BEDSIDE [id number] 11:26:00 Test Item Value Reference Range Comments GLUCOSE BEDSIDE TESTING (test code=GLUBED) 148 mg/dL 70-110 GLUCOSE BEDSIDE [id number] 08:22:00 Test Item Value Reference Range Comments GLUCOSE BEDSIDE TESTING (test code=GLUBED) 130 mg/dL 70-110 GLUCOSE BEDSIDE [id number] 03:19:00 Test Item Value Reference Range Comments GLUCOSE BEDSIDE TESTING (test code=GLUBED) 90 mg/dL 70-110 GLUCOSE BEDSIDE [id number] 11:51:00 Test Item Value Reference Range Comments GLUCOSE BEDSIDE TESTING (test code=GLUBED) 93 mg/dL 70-110 BASIC METABOLIC [id number] 11:10:00 Test Item Value Reference Range Comments [...] (test code=CA) 9.3 MG/DL 8.5-10.1 GLUCOSE BEDSIDE [id number] 03:09:00 Test Item Value Reference Range Comments GLUCOSE BEDSIDE TESTING (test code=GLUBED) 87 mg/dL 70-110 GLUCOSE BEDSIDE [id number] 08:02:00 Test Item Value Reference Range Comments GLUCOSE BEDSIDE TESTING (test code=GLUBED) 158 mg/dL 70-110 GLUCOSE BEDSIDE [id number] 08:01:00 Test Item Value Reference Range Comments GLUCOSE BEDSIDE TESTING (test code=GLUBED) 163 mg/dL 70-110 GLUCOSE BEDSIDE [id number] 23:54:00 Test Item Value Reference Range Comments GLUCOSE BEDSIDE TESTING (test code=GLUBED) 135 mg/dL 70-110 GLUCOSE BEDSIDE [id number] 16:42:00 Test Item Value Reference Range Comments GLUCOSE BEDSIDE TESTING (test code=GLUBED) 145 mg/dL 70-110 GLUCOSE BEDSIDE [id number] 08:24:00 Test Item Value Reference Range Comments GLUCOSE BEDSIDE TESTING (test code=GLUBED) 137 mg/dL 70-110 GLUCOSE BEDSIDE [id number] 09:16:00 Test Item Value Reference Range Comments GLUCOSE BEDSIDE TESTING (test code=GLUBED) 128 mg/dL 70-110 BASIC METABOLIC [id number] 06:53:00 Test Item Value Reference Range Comments [...] (test code=CA) 8.8 MG/DL 8.5-10.1 GLUCOSE BEDSIDE [id number] 01:53:00 Test Item Value Reference Range Comments GLUCOSE BEDSIDE TESTING (test code=GLUBED) 132 mg/dL 70-110 - INS GASTRO TUBE [id number] 15:31:00 Name: CHEYENNE MACHADO JR [facility] : 1935 Age/S: 83 / M [address] [address] Unit #: [id number] Loc: [place] [address] Phys: Cat Mcgrath MD Acct: [id number] Dis Date: Status : ADM IN PHONE #: [phone] Exam Date: 02/06/2019 1520 FAX #: Reason: MEDICATION EXAMS: CPT: [id number] INS GASTRO TUBE PERC 56210 Fluoro Time: 4:11 DAP (Gy m2): 10.69 [...] was obtained. Prior to beginning the procedure, Bigelow Protocol was used to confirm the patient' [...] dilated over a guidewire and an 18 Latvian TANIYA gastrostomy catheter was advanced intothe stomach [...] Signed Report (CONTINUED) Name: CHEYENNE MACHADO JR [facility] : 6Age/ S: 83 / M [address] [facility] Unit #: [id number] Loc: [place] [address] Phys: Cat Mcgrath MD Acct: [id number] Dis Date: Status: ADM IN PHONE#: [phone] Exam Date: 02/06/2019 1520 FAX #: Reason: MEDICATION EXAMS: CPT: [id number] INS GASTRO TUBE PERC 74873 Fluoro Time:4:11 DAP (Gy m2): 10.69 Air [...] JR : 1935 Age/S: 83 / M [address] [address] Unit # : [id number] Loc: [place] [address] Phys: Cat Mcgrath MD Acct: [id number] Dis Date: Status: ADM IN PHONE #: [phone] Exam Date: 02/06/2019 1520 FAX #: Reason: MEDICATION EXAMS: CPT: [id number] INS GASTRO TUBE PERC 36172 Fluoro Time: 4:11 DAP ( Gy m2): 10.69 Air Kerma (mGy): 45 <Continued> Technologist: RT Elvin(R) Trnscashley Date/Time: 02/06/2019 (1531) SurinderPR7 PAGE 3 Signed Report - INS GASTRO TUBE [id number] 15:31:00 Name: CHEYENNE MACHADO JR : 1935 Age/S: 83 / M [address] [address] Unit #: [id number] Loc: [place] [address] Phys: Cat Mcgrath MD Acct: [id number] Dis Date: Status : ADM IN PHONE #: [phone] Exam Date: 02/06/2019 1520 FAX #: Reason: MEDICATION EXAMS: CPT: [id number] INS GASTRO TUBE PERC 00120 Fluoro Time: 4:11 DAP (Gy m2): 10.69 [...] was obtained. Prior to beginning the procedure, Bigelow Protocol was used to confirm the patient' [...] dilated over a guidewire and an 18 Latvian TANIYA gastrostomy catheter was advanced intothe stomach [...] Signed Report (CONTINUED) Name: CHEYENNE MACHADO JR [facility] : 6Age/ S: 83 / M [address] [facility] Unit #: [id number] Loc: [place] [address] Phys: Cat Mcgrath MD Acct: [id number] Dis Date: Status: ADM IN PHONE#: [phone] Exam Date: 02/06/2019 1520 FAX #: Reason: MEDICATION EXAMS: CPT: [id number] INS GASTRO TUBE PERC 36431 Fluoro Time:4:11 DAP (Gy m2): 10.69 Air [...] 2 Signed Report Name: CHEYENNE MACHADO JR [place] : 1935 Age/S: 83 /M [address] [address] Unit #: [id number] Loc: [place] [address] Phys: Cat Mcgrath MD Acct: [id number] Dis Date: Status: ADM IN PHONE #: [phone] Exam Date: 02/06/2019 1520 FAX #: Reason: MEDICATION EXAMS: CPT: [id number] INS GASTRO TUBE PERC 93935 Fluoro Time: 4:11 DAP (Gy m2): 10.69 Air Kerma (mGy): 45 <Continued> Technologist : RT Elvin(R) Trnnvb Date/Time: 02/06/2019 (1531) tLUCASPR7 Orig Print D/T: S: 02/06/2019 (1534) PAGE 3 Signed Report- US GUIDANCE [facility] [id number] 15:22:00 Name: CHEYENNE MACHADO [place] : 1935 Age/S: 83 / M [address] [address] Unit #: [id number] Loc: [place] [address] Phys: Marybeth Pizano MD Acct: [id number] Dis Date: Status : ADM IN PHONE #: [phone] Exam Date: 02/06/2019 1441 FAX #: Reason: IV access EXAMS: CPT: [id number] US GUIDANCE VASC ACCESS 90637 EXAMINATION: NON-TUNNELED PERIPHERAL VENOUS CATHETER PLACEMENT. LOCATION: [...] ultrasound guidance. A short 10 cm 5 Latvian catheter was then passed into the left [...] Report ( CONTINUED) Name: CHEYENNE MACHADO JR [facility] : 1935 Age/S: 83 / M [address] [facility] Unit #: [id number] Loc: [place] [address] Phys : Marybeth Pizano MD Acct: [id number] Dis Date: Status: ADM IN PHONE #: [phone] Exam Date: 02/06/2019 1441 FAX #: Reason: IV access EXAMS:CPT: [id number] US GUIDANCE VASC ACCESS 01502 <Continued> at 1522 Reported and signed by: Cat Mcgrath M.D. CC: Marybeth Romeo Technologist: Tierra Jo, RT(R),RDMS(AB) Trnscb Date/Time: 02/06/2019 (6833) Flaquito7 PAGE 2 Signed Report Name: CHEYENNE MACHADO JR [place] : 1935 Age/S: 83 / M [address] [address] Unit #: [id number] Loc: [place] [address] Phys: Marybeth Pizano MD Acct: [id number] Dis Date: Status: ADM IN PHONE #: [phone] Exam Date: 02/06/2019 1441 FAX #: Reason: IV access EXAMS: CPT: [id number] US GUIDANCE VASC ACCESS 12303 <Continued> Orig Print D/T: S: 02/06/2019 (6890) Probe: PAGE 3 Signed ReportGLUCOSE BEDSIDE [id number] 12:29:00 Test Item Value Reference Range Comments GLUCOSE BEDSIDE TESTING (test code=GLUBED) 116 mg/dL 70-110 GLUCOSE BEDSIDE [id number] 08:06:00 Test Item Value Reference Range Comments GLUCOSE BEDSIDE TESTING (test code=GLUBED) 144 mg/dL 70-110 BASIC METABOLIC [id number] 07:28:00 Test Item Value Reference Range Comments [...] 0.8-1.3 CALCIUM (test code=CA) 8.8 MG/DL 8.5-10.1 [id number] 07:28:00 Test Item Value Reference Range Comments PHOSPHOROUS (test code=PHOS) 3.9 MG/DL 2.5-4.9 [id number] 07:28:00 Test Item Value Reference Range Comments MAGNESIUM (test code=MAG) 2.1 MG/DL 1.8-2.4 GLUCOSE BEDSIDE [id number] 17:09:00 Test Item Value Reference Range Comments GLUCOSE BEDSIDE TESTING (test code=GLUBED) 152 mg/dL 70-110 GLUCOSE BEDSIDE [id number] 12:31:00 Test Item Value Reference Range Comments GLUCOSE BEDSIDE TESTING (test code=GLUBED) 152 mg/dL 70-110 GLUCOSE BEDSIDE [id number] 08:26:00 Test Item Value Reference Range Comments GLUCOSE BEDSIDE TESTING (test code=GLUBED) 156 mg/dL 70-110 BASIC METABOLIC [id number] 07:13:00 Test Item Value Reference Range Comments [...] (test code=CA) 9.0 MG/DL 8.5-10.1 CBC W/AUTO [id number] 06:40:00 Test Item Value Reference Range Comments [...] CONSISTANT code=MDIFF) WITH AUTO DIFFERENTIAL. BASIC METABOLIC [id number] 06:35:00 Test Item Value Reference Range Comments [...] CALCIUM (test code=CA) 9.0 MG/DL 8.5-10.1 PROTHROMBIN [id number] 06:29:00 Test Item Value Reference Range Comments PT PATIENT (test code=PTP) 14.9 SECONDS 9.3-12.9 INTERNATIONAL NORMAL RATIO (test code=INR) 1.29 INR Unit 0.8-1.2 CBC W/AUTO [id number] 06:24:00 Test Item Value Reference Range Comments [...] DIFF/SCN CRITERIA UA RFLX MICR CULT IF [id number] 01:25:00 Test Item Value Reference Range Comments [...] no other srcUA RFLX MICR CULT IF [id number] 01:22:00 Test Item Value Reference Range Comments [...] no other src- CT ABD PELVIS W/O [id number] 17:12:00 Name: CHEYENNE MACHADO JR [facility] EDRadha [place] : 1935 Age/S: 83 / M [address] [address] Unit #: [id number] Loc: [place] [address] Phys: Angeles Vogt MD Acct: [id number] Dis Date: Status: ADM IN PHONE #: [phone] Exam Date: 02/04/2019 1701 FAX #: Reason: PEG TUBE PREPARATION. EXAMS: CPT: [id number] CT ABD PELVIS W/O CONT 22917 HISTORY: PEG TUBE PREPARATION. EXAM: CT abdomen [...] JR : 1935 Age/S: 83 / M [address] [address] Unit #: [id number] Loc: [place] [address] Phys: Angeles oVgt MD Acct: [id number] Dis Date: Status: ADM IN PHONE #: [phone] Exam Date: 2018 1701 FAX #: Reason: PEG TUBE PREPARATION. EXAMS: CPT: [id number] CT ABD PELVIS W/O CONT 93003 <Continued> consistent with hyperdense cysts. No suspicious [...] RT(R)(CT)(MR) CTDI: DLP: Trnscb Date/Time: 02/04/2019 (1712) GladysR.KW9 Orig Print D/T: S: 02/04/2019 (7564) PAGE 2 Signed Report- XR SWLW FUNC W/C [id number] 15:31:00 Name : CHEYENNE MACHADO JR [place] : Age/S: 83 / M [address] [address] Unit #: [id number] Loc: [place] [address] Phys: Marybeth Pizano MD Acct: [id number] Dis Date: Status: ADM IN PHONE #: [phone] Exam Date: 02/04/2019 1400 FAX #: Reason: SPEECH EVAL EXAMS: CPT: [id number] XR SWLW FUNC W/C V 96509 Fluoro Time: 60 DAP (Gy m2): Air [...] PAGE 1 Signed Report Name: CHEYENNE MACHADO JRHENRY [place] : 1935 Age/S: 83 / M [address] [address] Unit #: [id number] Loc: [place] [address] Phys: HarinderJose Alejandro Acct: [id number] Dis Date: Status: ADM IN PHONE #: [phone] Exam Date: 02/04/2019 1400 FAX #: Reason: SPEECH EVALEXAMS: CPT: [id number] XR SWLW FUNC W/C V 31844 Fluoro Time: 60 DAP (Gy m2): Air Kerma (mGy) : <Continued> Technologist: Beckie Linda, RT(R) Trnscb Date/Time: 02/04/2019 (1532) [email or web address] Orig Print D/T: S: 02/04/2019 (0508) PAGE 2 Signed ReportGLUCOSE BEDSIDE [id number] 11:55:00 Test Item Value Reference Range Comments GLUCOSE BEDSIDE TESTING (test code=GLUBED) 100 mg/dL 70-110 VANCOMYCIN [id number] 10:10:00 Test Item Value Reference Range Comments VANCOMYCIN TROUGH (test code=VANCT) 18.3 mcG/ML 10-20 GLUCOSE BEDSIDE [id number] 08:00:00 Test Item Value Reference Range Comments GLUCOSE BEDSIDE TESTING (test code=GLUBED) 88 mg/dL 70-110 GLUCOSE BEDSIDE [id number] 05:58:00 Test Item Value Reference Range Comments GLUCOSE BEDSIDE TESTING (test code=GLUBED) 94 mg/dL 70-110 - XR CHEST 1 [id number] 21:59:00 Name: CHEYENNE [facility]ACH[facility]O [facility] 1935 Age/S: 83 / M [address] [address] Unit #: [id number] Loc: [place] [address] Phys: Concha Kc MD Acct: [id number] Dis Date: Status: ADM IN PHONE #: [phone] Exam Date: 02/03/2019 2158 FAX #: Reason: R/O ASPIRATION EXAMS: CPT: [id number] XR CHEST 1 V 79561 Fluoro Time: DAP (Gy m2): Air Kerma [...] 1 Signed Report Name: CHEYENNE MACHADO JR [place] : 1935 Age/S: 83 / M [address] [address] Unit #: [id number] Loc: [place] [address] Phys: Concha Kc MD Acct: [id number] Dis Date: Status: ADM IN PHONE #: [phone] Exam Date: 2018 FAX #: Reason: R/O ASPIRATION EXAMS: CPT: [id number] XR CHEST 1 V 95774 Fluoro Time: DAP (Gy m2): Air Kerma (mGy): < Continued> Technologist: Peter Kim, RT(R)(CT); ... Trnscb Date/Time: 02/03/2019 (2158) t.FARHADR.[email or web address] Orig Print D/T: S: 02/03/2019 (442) PAGE 2 Signed ReportGLUCOSE BEDSIDE [id number] 21:58:00 Test Item Value Reference Range Comments GLUCOSE BEDSIDE TESTING (test code=GLUBED) 123 mg/dL 70-110 GLUCOSE BEDSIDE [id number] 18:07:00 Test Item Value Reference Range Comments GLUCOSE BEDSIDE TESTING (test code=GLUBED) 144 mg/dL 70-110 RENAL FUNCTION [id number] 16:41:00 Test Item Value Reference Range Comments [...] (test code=PHOS) 3.8 MG/DL 2.5-4.9 GLUCOSE BEDSIDE [id number] 11:23:00 Test Item Value Reference Range Comments GLUCOSE BEDSIDE TESTING (test code=GLUBED) 133 mg/dL 70-110 - CT HEAD/BRAIN W/O [id number] 08:31:00 Name: CHEYENNE MACHADO JR [facility] : 1935 Age/S: 83 / M [address] [address] Unit #: [id number] Loc: [place] [address] Phys: Leia Aldana MD Acct: [id number] Dis Date: Status : ADM IN PHONE #: [phone] Exam Date: 02/03/2019 0657 FAX #: Reason: AMS, h/o recent stroke EXAMS: CPT: [id number] CT HEAD/BRAIN W/O CONT 82708 Dictation location: L11. CT HEAD WITHOUT CONTRAST. [...] JR : 1935 Age/S: 83 / M [address] [address] Unit #: [id number] Loc: [place] [address] Phys: Leia Aldana MD Acct: [id number] Dis Date: Status: ADM IN PHONE #: [phone] Exam Date: 02/03/2019 0675 FAX #: Reason: AMS, h/o recent stroke EXAMS: CPT: [id number] CT HEAD/ BRAIN W/O CONT 53496 <Continued> CC: Marybeth Pizano MD; Leia Aldana MD Technologist:RT Rosalinda(R)(CT); .. CTDI: DLP: Trnscb Date/Time: 02/03/2019 (0831) t.SDR.SP17 Orig Print D/T: S : 02/03/2019 (0834) PAGE 2 Signed ReportGLUCOSE BEDSIDE [id number] 07:32:00 Test Item Value Reference Range Comments GLUCOSE BEDSIDE TESTING (test code=GLUBED) 137 mg/dL 70-110 GLUCOSE BEDSIDE [id number] 20:20:00 Test Item Value Reference Range Comments GLUCOSE BEDSIDE TESTING (test code=GLUBED) 113 mg/dL 70-110 GLUCOSE BEDSIDE [id number] 17:15:00 Test Item Value Reference Range Comments GLUCOSE BEDSIDE TESTING (test code=GLUBED) 141 mg/dL 70-110 GLUCOSE BEDSIDE [id number] 12:57:00 Test Item Value Reference Range Comments GLUCOSE BEDSIDE TESTING (test code=GLUBED) 146 mg/dL 70-110 RENAL FUNCTION [id number] 10:33:00 Test Item Value Reference Range Comments [...] 8.5-10.1 PHOSPHOROUS (test code=PHOS) 3.2 MG/DL 2.5-4.9 [id number] 10:33:00 Test Item Value Reference Range Comments VANCOMYCIN (test code=VANCO) 6.1 mcG/ML 5-40 GLUCOSE BEDSIDE [id number] 08:46:00 Test Item Value Reference Range Comments GLUCOSE BEDSIDE TESTING (test code=GLUBED) 151 mg/dL 70-110 GLUCOSE BEDSIDE [id number] 12:33:00 Test Item Value Reference Range Comments GLUCOSE BEDSIDE TESTING (test code=GLUBED) 114 mg/dL 70-110 - XR ABDOMEN 1 [id number] 10:52:00 Name: CHEYENNE MACHADO JR [facility] : 1935 Age/S: 83 / M [address] [address] Unit #: [id number] Loc: [place] [address] Phys: Marybeth Pizano MD Acct: [id number] Dis Date: Status: ADM IN PHONE #: [phone] Exam Date: 02/01/2019 1046 FAX #: Reason: NG TUBE PLACEMENT EXAMS: CPT: [id number] XR ABDOMEN 1 V 34128 Fluoro Time: DAP (Gy m2): Air Kerma [...] 1 Signed Report Name: CHEYENNE MACHADO JR [place] : 1935 Age/S: 83 / M [address] [address] Unit #: [id number] Loc: [place] [address] Phys : Marybeth Pizano MD Acct: [id number] Dis Date: Status: ADM IN PHONE #: [phone] Exam Date: 02/01/2019 1046 FAX #: Reason: NG TUBE PLACEMENT EXAMS: CPT: [id number] XR ABDOMEN 1 V 57531 Fluoro Time: DAP (Gy m2): Air Kerma (mGy) : <Continued> Technologist: Belen Lepe RT(R) Trnnvb Date/Time: 02/01/2019 (1052) t.PR7 Orig Print D/T: S: 02/01/2019 (1056) PAGE 2 Signed Report- XR ABDOMEN 1 [id number] 09:25:00 Name: CHEYENNE MACHADO JR [place] : 1935 Age/S: 83 / M [address] [address] Unit #: [id number] Loc: [place] [address] Phys: Marybeth Pizano MD Acct: [id number] Dis Date: Status: ADM IN PHONE #: [phone] Exam Date: 02/01/2019 0917 FAX #: Reason: NG TUBE PLACEMENT EXAMS: CPT: [id number] XR ABDOMEN 1 V 07193 Fluoro Time: DAP (Gy m2): Air Kerma [...] 1 Signed Report Name: CHEYENNE MACHADO JR [place] : 1935 Age/S: 83 / M [address] [address] Unit #: [id number] Loc: [place] [address] Phys: Marybeth Pizano MD Acct: [id number] Dis Date: Status: ADM IN PHONE #: [phone] Exam Date: 02/01/2019916 FAX #: Reason: NG TUBE PLACEMENT EXAMS: CPT: [id number] XR ABDOMEN 1 V 57721 Fluoro Time: DAP (Gy m2): Air Kerma (mGy): <Continued> Technologist: Belen Lepe RT(R) Trnscb Date/Time: 02/01/2019 ( 924) SurinderEB14 Orig Print D/T: S: 02/01/2019 (928) PAGE 2 Signed ReportGLUCOSE BEDSIDE [id number] 08:03:00 Test Item Value Reference Range Comments GLUCOSE BEDSIDE TESTING (test code=GLUBED) 117 mg/dL 70-110 COMPREHENSIVE METABOLIC [id number] 06:25:00 Test Item Value Reference Range Comments [...] (test code=ALKP) 47 Unit/L 50-136 RENAL FUNCTION [id number] 06:25:00 Test Item Value Reference Range Comments PHOSPHOROUS (test code=PHOS) 3.2 MG/DL 2.5-4.9 [id number] 06:25:00 Test Item Value Reference Range Comments MAGNESIUM (test code=MAG) 1.8 MG/DL 1.8-2.4 COMPREHENSIVE METABOLIC [id number] 06:21:00 Test Item Value Reference Range Comments [...] TOTAL (test code=ALKP) Unit/L 50-136 RENAL FUNCTION [id number] 06:21:00 Test Item Value Reference Range Comments PHOSPHOROUS (test code=PHOS) MG/DL 2.5-4.9 [id number] 06:21:00 Test Item Value Reference Range Comments MAGNESIUM (test code=MAG) MG/DL 1.8-2.4 CBC W/AUTO [id number] 06:11:00 Test Item Value Reference Range Comments [...] (test code=MDIFF) NO DIFF/SCN CRITERIA RAPID PLASMA [id number] 06:09:00 Test Item Value Reference Range Comments RAPID PLASMA REAGIN (test Non Reactive Non Reactive Performed At: [facility] code=RPR) [id number] [place], [place] [id number] Delbert Edmonds MD Ph:[phone] - XR CHEST 1 [id number] 21:19:00 Name: CHEYENNE MACHADO JR [facility] : 1935 Age/S: 83 / M [address] [address] Unit #: [id number] Loc: [place] [address] Phys: Concha Kc MD Acct: [id number] Dis Date: Status: ADM IN PHONE #: [phone] Exam Date: 01/31/20192050 FAX #: Reason: EVAL FORASPIRATION EXAMS: CPT: [id number] XR CHEST 1 V 60910 Fluoro Time: DAP (Gy m2): Air Kerma [...] PAGE 1 SignedReport Name: CHEYENNE MACHADO JR [place] : 1935 Age/S: 83 / M [address] [address] Unit #: [id number] Loc: [place] [address] Phys: Concha Kc MD Acct: [id number] Dis Date: Status: ADM IN PHONE #: [phone] Exam Date: 01/31/20192050 FAX #: Reason: EVAL FOR ASPIRATION EXAMS: CPT: [id number] XR CHEST 1 V 55361 Fluoro Time: DAP ( Gy m2): Air Kerma (mGy): <Continued> Technologist: Peter Kim, RT(R)(CT); ... Trnscb Date/Time: 01/31/2019 ( 2118) t.FARHADR.AL7 Orig Print D/T: S: 01/31/2019 (2121) PAGE 2 Signed Report- XR ABDOMEN 1 [id number] 21:12:00 Name: CHEYENNE MACHADO JR [place] : 1935 Age/S: 83 / M [address] [address] Unit #: [id number] Loc: [place] [address] Phys: Concha Kc MD Acct: [id number] Dis Date: Status: ADM IN PHONE #: [phone] Exam Date: 01/31/20192050 FAX #: Reason: NGT PLACEMENT EXAMS: CPT: [id number] XR ABDOMEN 1 V 77871 Fluoro Time: DAP (Gy m2): Air Kerma (mGy): EXAM: Chest one view. Location:R16 HISTORY: NGT PLACEMENT, , COMPARISON: 01/31/2019 at 205 and abdomenfrom 01/30/2019 FINDINGS: There is nasogastric [...] 1 Signed Report Name: CHEYENNE MACHADO JR [place] : 1935 Age/S: 83 / M [address] [address] Unit #: [id number] Loc: [place] [address] Phys: Concha Kc MD Acct: [id number] Dis Date: Status: ADM IN PHONE #: [phone] Exam Date: 01/31/20192050 FAX #: Reason: NGT PLACEMENT EXAMS: CPT: [id number] XR ABDOMEN 1 V 95361 Fluoro Time: DAP (Gy m2): Air Kerma (mGy): <Continued> Technologist: Peter Kim, RT(R)(CT); ... Trnscb Date/Time: 01/31/2019 (2111) [email or web address] Orig Print D/T: S: 01/31/2019 (2114) PAGE 2 Signed ReportGLUCOSE BEDSIDE [id number] 19:59:00 Test Item Value Reference Range Comments GLUCOSE BEDSIDE TESTING (test code=GLUBED) 131 mg/dL 70-110 GLUCOSE BEDSIDE [id number] 16:41:00 Test Item Value Reference Range Comments GLUCOSE BEDSIDE TESTING (test code=GLUBED) 160 mg/dL 70-110 GLUCOSE BEDSIDE [id number] 12:18:00 Test Item Value Reference Range Comments GLUCOSE BEDSIDE TESTING (test code=GLUBED) 163 mg/dL 70-110 GLUCOSE BEDSIDE [id number] 08:12:00 Test Item Value Reference Range Comments GLUCOSE BEDSIDE TESTING (test code=GLUBED) 162 mg/dL 70-110 GLUCOSE BEDSIDE [id number] 05:35:00 Test Item Value Reference Range Comments GLUCOSE BEDSIDE TESTING (test code=GLUBED) 179 mg/dL 70-110 RENAL FUNCTION [id number] 03:34:00 Test Item Value Reference Range Comments [...] LDL/HDL (test code=LDL/HDL) 2.42 Ratio 1.48-3.22 Avg [id number] 03:34:00 Test Item Value Reference Range Comments GLYCOSYLATED HEMOGLOBIN (HA1C) (test 5.3 % A1C 4.2-6.3 code=GLYHGB) ESTIMATED AVERAGE GLUCOSE (test code=EAG) 105 MG/DLest RENAL FUNCTION [id number] 03:24:00 Test Item Value Reference Range Comments [...] (test code=LDL/HDL) Ratio 1.48-3.22 Avg GLUCOSE BEDSIDE [id number] 00:00:00 Test Item Value Reference Range Comments GLUCOSE BEDSIDE TESTING (test code=GLUBED) 164 mg/dL 70-110 - XR ABDOMEN 1 [id number] 19:09:00 Name: CHEYENNE MACHADO JR [facility] EDRadha [place] : 1935 Age/S: 83 / M [address] [facility] Unit #: [id number] Loc: [place] [address] Phys: Marybeth Pizano MD Acct: [id number] Dis Date: Status: ADM IN PHONE #: [phone] Exam Date: 01/30/2019 4915 FAX #: Reason: confirm ng tube placement EXAMS: CPT: [id number] XR ABDOMEN 1 V 07188 Fluoro Time: DAP (Gy m2): Air Kerma [...] 1 Signed Report Name: CHEYENNE MACHADO JR [place] : 1935 Age/S: 83 / M [address] [place] [address] Unit #: [id number] Loc: [place] [address] Phys: Marybeth Pizano MD Acct: [id number] Dis Date: Status: ADM IN PHONE #: [phone] Exam Date: 01/30/2019 3181 FAX #: Reason: confirm ng tube placement EXAMS: CPT: [id number] XR ABDOMEN 1 V 55868 Fluoro Time: DAP (Gy m2): Air Kerma (mGy): < Continued> Technologist: Kamilah Perez RT(R)(CT)(MRI) Trnscb Date/Time: 01/30/2019 (1908) tCIRARLilianRK5 Orig Print D/T: S : 01/30/2019 (1911) PAGE 2 SignedReportBASIC METABOLIC [id number] 16:47:00 Test Item Value Reference Range Comments [...] 9.2 MG/DL 8.5-10.1 - MRI BRAIN W/O [id number] 11:36:00 FAX: Marybeth Miller MD Camps: PM St: ADM Name: CHEYENNE MACHADO JR : 1935 Age/S: 83/M [address] [address] Unit #: [id number] Loc: [place] [address] Phys: Marybeth Pizano MD Acct: [id number] Dis Date: Status: ADM IN PHONE #: [phone] Exam Date: 01/30/2019 1056 FAX #: Reason: ISCHEMIC STROKE EXAMS: CPT: [id number] MRI BRAIN W/O CONTRAST 53847 Dictation location: L11. MRI BRAIN WITHOUT CONTRAST [...] in the left mastoid air cells. The [place] lenses of the both eyes are absent. IMPRESSION: Limited exam due to patient motion. 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 Vascular territory and involves predominantly the [employer] territory however there is also MCA involvement, unusual distribution. Recommend follow-up. 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 at 1136 Reported and signed by : Myranda Hitchcock M.D. PAGE 1 Signed Report (CONTINUED) FAX: Marybeth Miller MD Camps:PM St: ADM Name:CHEYENNE [facility]ACH[facility] : 1935 Age/S: 83/M [address] [address] Unit #: [id number] Loc: [place] [address] Phys: Marybeth Pizano MD Acct: [id number] Dis Date: Status: ADM IN PHONE #: [phone] Exam Date: 01/30/2019 1056 FAX #: Reason: ISCHEMIC STROKE EXAMS: CPT: [id number] MRI BRAIN W/O CONTRAST 16526 <Continued&gt ; CC: Marybeth Pizano MD Technologist: Irais Andujar, (R)(MR) Transcribed Date/Time/By: 01/30/2019 (1136) :[email or web address] Orig Print D/T: S: 01/30/2019 (1139) PAGE 2 Signed Report- US RETRO [id number] 02:02:00 Name: CHEYENNE MACHADO JR [facility] : 1935 Age/S: 83 / M [address] Unit #: [id number] Loc: [place] [address] Phys: Nikita Damico MD Acct: [id number] Dis Date: Status: ADM IN PHONE #: [phone] Exam Date: 01/29/2019 1700 FAX #: Reason: YANNICK EXAMS: CPT: [id number] [facility] LTD [address] DICTATION LOCATION: [facility] HISTORY: Male, 83 years of age with [...] MD; Marybeth Pizano MD Technologist: Natalie Smallwood Trnnvb Date /Time: 01/30/2019 (0202) SurinderCLW PAGE 1 Signed Report Name: CHEYENNE MACHADO JR [facility] : 1935 Age/S: 83 / M [address] Unit #: [id number] Loc: [place] [address] Phys: Nikita Damico MD Acct: [id number] Dis Date: Status: ADM IN PHONE #: [phone] Exam Date: 01/29/2019 1700 FAX #: Reason: YANNICK EXAMS: CPT: [id number] [facility] L[facility] [address] <Continued> Orig Print D/T: S: 01/30/2019 ( 0206) Probe: PAGE 2Signed ReportBASIC METABOLIC [id number] 14:29:00 Test Item Value Reference Range Comments [...] 0.8-1.3 CALCIUM (test code=CA) 9.0 MG/DL 8.5-10.1 [id number] 14:29:00 Test Item Value Reference Range Comments PHOSPHOROUS (test code=PHOS) 2.4 MG/DL 2.5-4.9 [id number] 14:29:00 Test Item Value Reference Range Comments MAGNESIUM (test code=MAG) 1.9 MG/DL 1.8-2.4 CBC W/AUTO [id number] 14:22:00 Test Item Value Reference Range Comments [...] REQUIRED (test code=MDIFF) NO DIFF/SCN CRITERIA PROTHROMBIN [id number] 15:25:00 Test Item Value Reference Range Comments PT PATIENT (test code=PTP) 13.7 SECONDS 9.3-12.9 INTERNATIONAL NORMAL RATIO (test code=INR) 1.19 INR Unit 0.8-1.2 THROMBOPLASTIN TIME [id number] 15:25:00 Test Item Value Reference Range Comments THROMBOPLASTIN TIME PARTIAL (test code=PTT) 29.6 SECONDS 26-35 - XR CHEST 1 [id number] 14:47:00 Name: CHEYENNE MACHADO JR [facility] : 1935 Age/S: 83 / M [address] Unit #: [id number] Loc: [place] [address] Phys: Maninder Schmidt MD Acct: [id number] Dis Date: Status: ADM IN PHONE #: [phone] Exam Date: 01/28/2019 1315 FAX #: Reason: epigatric pain EXAMS: CPT: [id number] XR CHEST 1 V 41532 Fluoro Time: DAP (Gy m2): Air Kerma [...] or edema. Enlargement ofthe pulmonary arterial trunk [id number] Reported and signed by: Seth Mendoza M.D. CC: Maninder Schmidt MD; Krys BARRETO PAGE 1 Signed Report Name: CHEYENNE MACHADO JR [facility] : 1935 Age/S: 83 / M [address] Unit #: [id number] Loc: [place] [address] Phys: Maninder Schmidt MD Acct: [id number] Dis Date: Status: ADM IN PHONE #: [phone] Exam Date: 01/28/2019 1315 FAX #: Reason: epigatric pain EXAMS: CPT: [id number] XR CHEST 1 V 51836 Fluoro Time: DAP (Gy m2): Air Kerma (mGy): & lt;Continued> Technologist: Paras Reynaga RT(R)(CT) Trnscb Date/Time: 01/28/2019 (2847) [email or web address] Orig Print D /T: S: 01/28/2019 (8816) PAGE 2 Signed ReportTROPONIN I [id number] 14:18:00 Test Item Value Reference Range Comments TROPONIN I RAPID (test 0.04 ng/mL 0.00-0.08 - The use of serial sampling code=TROPIRAP) and testing protocol is a recommended practice- An elevated troponin level alone is often not sufficient for diagnosis of myocardial infarction. CHEMISTRY 8 [id number] 14:14:00 Test Item Value Reference Range Comments ISTAT-SODIUM (test code=NAP) mmol/L 135-146 ISTAT-POTASSIUM (test code=KP) mmol/L 3.5-4.9 ISTAT-CHLORIDE (test code=CLP) mmol/L 98-109 ISTAT-CARBON DIOXIDE (test code=ISTAT-CO2) mmol/L 24-29 ISTAT CALCIUM IONIZED (test code=ISTAT-RC) mmol/L 1.12-1.32 ISTAT-GLUCOSE (test code=GLUP) mg/dL 70-105 ISTAT-BUN (test code=BUNP) mg/dL 8-26 BEDSIDE CREATININE (test code=CREATBED) mg/dL 0.6-1.3 GLOMERULAR FILTRATION RATE POC (test code=GFRBED) 26 35-81 CHEMISTRY 8 [id number] 14:14:00 Test Item Value Reference Range Comments [...] mg/dL 0.6-1.3 GLOMERULAR FILTRATION RATE POC (test 35-81 code=GFRBED) - CT HEAD/BRAIN W/O [id number] 13:07:00 Name: CHEYENNE MACHADO JR [facility] : 1935 Age/S: 83 / M [address] [facility] Unit #: [id number] Loc: [place] [address] Phys: Maninder Schmidt MD Acct: [id number] Dis Date: Status : REG ER PHONE #: [phone] Exam Date: 01/28/2019 1221 FAX #: Reason: r/o stroke EXAMS: CPT: [id number] CT HEAD/BRAIN W/O CONT 16760 C3 CLINICAL HISTORY: Mental status changes, CVA, [...] JR : 1935 Age/S: 83 / M [address] [address] [place] Unit #: [id number] Loc: [place] [address] Phys: Maninder Schmidt MD Acct: [id number] Dis Date: Status: REG ER PHONE #: [phone] Exam Date: 01/28/2019 1227 FAX #: Reason: r/o stroke EXAMS: CPT: [id number] CT HEAD/BRAIN W/O CONT 32078 <Continued> at 1307 Reported and signed by : Man Ritchie M.D. CC: Maninder Schmidt MD; Krys BARRETO Technologist:Eva Malik, RT(R)( MR) CTDI: DLP: Trnscb Date/Time: 01/28/2019 (1022) [email or web address] Orig Print D/T: S: 01/28/2019 (5080) PAGE 2 Signed ReportCBC W/O [id number] 13:01:00 Test Item Value Reference Range Comments [...] 9.70 fL 7.0-9.6 - CT HEAD/BRAIN W/O [id number] 11:32:00 Name: CHEYENNE MACHADO JR : 1935 Age/S: 83 / M [address] [address] [place] Unit #: [id number] Loc: [place] [address] Phys: Undefined Provider Acct: [id number] Dis Date: Status : REG REF PHONE #: [phone] Exam Date: 01/28/2019 1047 FAX #: Reason: ALTEREDNEURO STATUS, CONFUSION,HALLUCINATIONS EXAMS: CPT: [id number] CT HEAD/BRAIN W/O CONT 91613 CLINICAL HISTORY: Mental status changes , CVA, [...] be notified of the new findings. Location: U19 PAGE 1 Signed Report (CONTINUED) Name: CHEYENNE MACHADO JR : 1935 Age/S: 83 / M [address] [facility] Unit #: [id number] Loc: [place] [address]Hfnp: Undefined Provider Acct: [id number] Dis Date: Status: REG REF PHONE #: [phone] Exam Date: 01/28/2019 1047 FAX #: Reason: ALTERED NEURO STATUS, CONFUSION,HALLUCINATIONS EXAMS: CPT: [id number] CT HEAD/BRAIN W/O CONT 49436 <Continued> at 1132 Reported and signed by: Merlyn Denis M.D. CC: Technologist:Eva Malik, RT(R)(MR)CTDI: DLP: Trnscb Date/Time: 01/28/2019 (1132) t.MILES Orig Print D/T: S: 01/28/2019 (1136) PAGE 2 Signed Report - CT HEAD/BRAIN W/O [id number] 13:02:00 Name: CHEYENNE MACHADO JR : 1935 Age/S: 83 / M [address] [facility] Unit #: [id number] Loc: [place] [address] Phys: Undefined Provider Acct: [id number] Dis Date: Status : REG REF PHONE #: [phone] Exam Date: 01/21/2019 1243 FAX #: Reason: SUBDURAL HEMATOMA EXAMS: CPT: [id number] CT HEAD/BRAIN W/O CONT [address] HEAD WITHOUT CONTRAST HISTORY: SUBDURAL [...] of right to left midline shift. at 1302 Reported and signed by: Mavis Kline PAGE 1 Signed Report (CONTINUED) Name:CHEYENNE MACHADO JR : 1935 Age/S: 83 / M [address] [address] [place] Unit #: [id number] Loc: [place] [address] Phys: Undefined Provider Acct: [id number] Dis Date: Status : REG REF PHONE #: [phone] Exam Date: 1243 FAX #: Reason: SUBDURAL HEMATOMA EXAMS: CPT: [id number] CT HEAD/BRAIN W/O CONT 77459 <Continued> CC: Technologist: Irais Andujar RT(R)(MR) CTDI: DLP: Trnscb Date/Time: 01/21 (3473) [email or web address] Orig Print D/T: S: 01/21/2019 (9291) PAGE 2 Signed Report
--- NOTE | 2019-03-25 12:08 | RAD REPORT ---
EXAM DESCRIPTION: RAD - ENTEROSTOMY TUBE CHECK W/CONTR - 03/25/2019 11:30 am CLINICAL HISTORY: Gastrostomy tube placement FINDINGS: Contrast was administered into the percutaneous gastrostomy tube. The stomach is opacified . Contrast enters the duodenum. No extravasation contrast Zero fluoroscopy performed. Zero fluoroscopic spot images obtained
--- NOTE | 2019-03-25 12:42 | ER ---
Nurse's Notes [facility] [place] [place] Name: Stewart Jacques Age: 83 yrs Sex: Male : 1935 Arrival Date: 03/25/2019 Time: 10:42 Bed 23 Private MD: Diagnosis: Dislodged PEG feeding tube - Replaced Presentation: 03/25 10:44 Presenting complaint: EMS states: pulled peg tube this morning around 10 AM, had a em recent stroke in Jan., is unable to communicate, pt is awake and alert, responds "yes" when asked his name, family at bedside. Transition of care: patient was not received from another setting of care. Onset of symptoms was March 25, 2019. Risk Assessment: Do you want to hurt yourself or someone else? Patient reports no desire to harm self or others. Initial Sepsis Screen: Does the patient meet any 2 criteria? No. Patient's initial sepsis screen is negative. Does the patient have a suspected source of infection? No. Patient's initial sepsis screen is negative. Care prior to arrival: None. 10:44 Method Of Arrival: EMS: [facility] em 10:57 Acuity: OPHELIA 4 ss Historical: - Allergies: 11: No Known Allergies; em - Home Meds: 11:01 aspirin 325 mg Oral TbEC 1 tab once daily [Active]; hydralazine 50 mg Oral tab 1 tab em three times a day [Active]; metoprolol tartrate 100 mg Oral tab 1 tab 2 times per day [Active]; quetiapine 25 mg Oral tab 0.5 tab nightly [Active]; Pravachol 40 mg Oral tab 1 tab once daily [Active]; - PMHx: 11:01 Atrial Fib; CVA; Dementia; Hyperlipidemia; Renal Disease; em - Immunization history:: Adult Immunizations not up to date. - Social history:: Smoking status: unknown. - Ebola Screening: : Patient negative for fever greater than or equal to 101.5 degrees Fahrenheit, and additional compatible Ebola Virus Disease symptoms Patient denies exposure to infectious person Patient denies travel to an Ebola-affected area in the 21 days before illness onset No symptoms or risks identified at this time. - Family history:: not pertinent. - Hospitalizations: : No recent hospitalization is reported. Screenin: Abuse screen: no apparent signs noted. em 11:01 Nutritional screening: No deficits noted. Tuberculosis screening: No symptoms or risk em factors identified. Fall Risk. Fall Risk Secondary diagnosis (15 points) impaired mobility, CVA, Ambulatory Aid- None/Bed Rest/Nurse Assist (0 pts). Mental Status- Overestimates/Forgets Limitations (15 pts.). Total Edward Fall Scale indicates Low Risk Score (25-44 pts). Side Rails Up X 2 Placed close to Nursing Station Family Present and informed to notify staff if they need to leave bedside. Assessment: 11:01 General: Appears in no apparent distress. comfortable, Behavior is calm, cooperative. em Pain: Unable to use pain scale. FLACC scale score is 0 out of 10. Neuro: Level of Consciousness is awake, alert. Cardiovascular: Capillary refill < 3 seconds Patient's skin is warm and dry. Respiratory: Airway is patent Respiratory effort is even, unlabored, Respiratory pattern is regular, symmetrical. GI: Abdomen is flat, 18 Fr. peg tube brought from facility Bowel sounds present X 4 quads. Abd is soft and non tender X 4 quads. Derm: Skin is intact, is fragile, Skin is pink, warm \\T\\ dry. Musculoskeletal: Capillary refill < 3 seconds. 11:05 General: The previous assessment is accurate. Call light remains within reach. . ss 11:50 Reassessment: respirations even and unlabored, skin pink warm and dry, does not appear em to be in pain. 12:47 Reassessment: Patient appears in no apparent distress at this time. pending x-ray em results, respirations even and unlabored, skin pink warm and dry, does not appear to be in pain. 12:56 Reassessment: report given to Luna at [facility], will arrange em transportation, pending ETA. 13:05 Reassessment: [facility] staffLuna states that [facility] will be here to transport ss patient back to their facility at 1515. Will call EMS to see if they can transport patient sooner. 13:10 Reassessment: awaiting EMS for transport back to [facility]. Vital Signs: 11:01 BP 135 / 74; Pulse 86; Resp 18; Pulse Ox 100% on R/A; Pain 0/10; em 11:22 Temp 97.9(TE); em 13:10 BP 159 / 89; Pulse 94; Resp 16; Pulse Ox 95% on R/A; em ED Course: 10:42 Patient arrived in ED. em 10:44 Toño Turk MD is Attending Physician. wa 10:[address] Turk with reinsertion of 18 Fr. peg tube, tolerated well. em 10:57 Triage completed. ss 11:01 Arm band placed on. em 11:01 Patient has correct armband on for positive identification. Placed in gown. Bed in low em position. Call light in reach. Side rails up X2. Adult w/ patient. Pulse ox on. NIBP on. 11:07 Sai Kuhn LVN is Primary Nurse. em 13:41 Patient did not have IV access during this emergency room visit. ss Administered Medications: No medications were administered Outcome: 12:41 Discharge ordered by . wa 13:42 Patient left the ED. ss 13:45 Discharged to [facility]. Report called to Luna Transfer form completed. em 13:45 Condition: good 13:45 Discharge instructions given to significant other, [facility], EMS, Instructed on discharge instructions, Demonstrated understanding of instructions, follow-up care. Signatures: Sai Kuhn LVN LVN em Shannon Browne, RN RN Toño Turk MD MD ar Corrections: (The following items were deleted from the chart) 11:16 10:50 Dr. Turk with reinsertion of 18 Fr. peg tube, tolerated well em em
--- NOTE | 2019-03-25 12:43 | EDPHYS ---
Physician Documentation [facility] Name: Stewart Jacques Age: 83 yrs Sex: Male : 1935 Arrival Date: 03/25/2019 Time: 10:42 Bed 23 Private MD: ED Physician Toño Turk HPI: 03/25 11:21 This 83 yrs old Male presents to ER via EMS with complaints of pulled peg wa tube. 11:21 PEG pulled out accidentally while moving pt. otherwise no complaints. pt h/o stroke. wa PEG due to failed swallow study. Onset: The symptoms/episode began/occurred just prior to arrival. Severity of symptoms: At their worst the symptoms were moderate in the emergency department the symptoms are unchanged. The patient has not experienced similar symptoms in the past. The patient has not recently seen a physician. Historical: - Allergies: 11: No Known Allergies; em - Home Meds: 11:01 aspirin 325 mg Oral TbEC 1 tab once daily [Active]; hydralazine 50 mg Oral tab 1 tab em three times a day [Active]; metoprolol tartrate 100 mg Oral tab 1 tab 2 times per day [Active]; quetiapine 25 mg Oral tab 0.5 tab nightly [Active]; Pravachol 40 mg Oral tab 1 tab once daily [Active]; - PMHx: 11:01 Atrial Fib; CVA; Dementia; Hyperlipidemia; Renal Disease; em - Immunization history:: Adult Immunizations not up to date. - Social history:: Smoking status: unknown. - Ebola Screening: : Patient negative for fever greater than or equal to 101.5 degrees Fahrenheit, and additional compatible Ebola Virus Disease symptoms Patient denies exposure to infectious person Patient denies travel to an Ebola-affected area in the 21 days before illness onset No symptoms or risks identified at this time. - Family history:: not pertinent. - Hospitalizations: : No recent hospitalization is reported. ROS: 11:23 Constitutional: Negative for fever, chills, and weight loss, Eyes: Negative for injury, wa pain, redness, and discharge, ENT: Negative for injury, pain, and discharge, Neck: Negative for injury, pain, and swelling, Cardiovascular: Negative for chest pain, palpitations, and edema, Respiratory: Negative for shortness of breath, cough, wheezing, and pleuritic chest pain, Back: Negative for injury and pain, MS/Extremity: Negative for injury and deformity. 11:23 Abdomen/GI: Positive for Clean PEG stoma. no PEG, Negative for nausea, vomiting, diarrhea. 11:23 All other systems are negative. Exam: 11:24 Constitutional: This is a well developed, well nourished patient who is awake, alert, wa and in no acute distress. Head/Face: Normocephalic, atraumatic. Eyes: Pupils equal round and reactive to light, extra-ocular motions intact. Lids and lashes normal. Conjunctiva and sclera are non-icteric and not injected. Cornea within normal limits. Periorbital areas with no swelling, redness, or edema. ENT: Nares patent. No nasal discharge, no septal abnormalities noted. Tympanic membranes are normal and external auditory canals are clear. Oropharynx with no redness, swelling, or masses, exudates, or evidence of obstruction, uvula midline. Mucous membranes moist. Neck: Trachea midline, no thyromegaly or masses palpated, and no cervical lymphadenopathy. Supple, full range of motion without nuchal rigidity, or vertebral point tenderness. No Meningismus. Chest/axilla: Normal chest wall appearance and motion. Nontender with no deformity. No lesions are appreciated. Cardiovascular: Regular rate and rhythm with a normal S1 and S2. No gallops, murmurs, or rubs. Normal PMI, no JVD. No pulse deficits. Respiratory: Lungs have equal breath sounds bilaterally, clear to auscultation and percussion. No rales, rhonchi or wheezes noted. No increased work of breathing, no retractions or nasal flaring. Back: No spinal tenderness. No costovertebral tenderness. Full range of motion. Skin: Warm, dry with normal turgor. Normal color with no rashes, no lesions, and no evidence of cellulitis. MS/ Extremity: Pulses equal, no cyanosis. Neurovascular intact. Full, normal range of motion. 11:24 Abdomen/GI: Inspection: noted PEG stoma. non-bloody. no erythema. clean, Bowel sounds: normal, Palpation: soft, nontender. 11:24 Neuro: confused. I'm advised by daughter at baseline. Vital Signs: 11:01 BP 135 / 74; Pulse 86; Resp 18; Pulse Ox 100% on R/A; Pain 0/10; em 11:22 Temp 97.9(TE); em 13:10 BP 159 / 89; Pulse 94; Resp 16; Pulse Ox 95% on R/A; em Procedures: 11:29 G-tube placement: a 20 Spanish catheter was placed, by the ED physician, Toño sosa MD replaced PEG on 1st attempt. went in smoothly. no complications. flushed well. Pt tolerated procedure well. MDM: 10:44 Patient medically screened. oh 11:30 Differential Diagnosis PEG pulled. will attempt to replace. . Data reviewed: vital oh signs, nurses notes. ED course: Gastrografin for confirmation. if no extravasation, will d/c back to [place]. 12:39 Test interpretation: by ED physician or midlevel provider: Gastrografin study through wa PEG: no extravasation. placement good. 03/25 12:14 Order name: RAD; Complete Time: 12:30 EDMS Administered Medications: No medications were administered Disposition: 03/25/19 12:41 Discharged to Home. Impression: Dislodged PEG feeding tube - Replaced. - Condition is Stable. - Discharge Instructions: PEG Tube Home Guide, Hctk-am-Ezhr. - Medication Reconciliation Form, Thank You Letter, Antibiotic Education, Prescription Opioid Use form. - Follow up: Private Physician; When: 1 - 2 days; Reason: Recheck today's complaints. - Problem is new. - Symptoms are resolved. - Notes: feeding tube is cleared for use. please secure in place to prevent frequent dislodgements Signatures: Dispatcher [employer] EDSC Sai Kuhn, FUR FARMER FUR FARMER Shannon Sandoval RN RN Toño Sanon MD MD wa Corrections: (The following items were deleted from the chart) 13:42 12:41 03/25/2019 12:41 Discharged to Home. Impression: Dislodged PEG feeding tube - ss Replaced. Condition is Stable. Forms are Medication Reconciliation Form, Thank You Letter, Antibiotic Education, Prescription Opioid Use. Follow up: Private Physician; When: 1 - 2 days; Reason: Recheck today's complaints. Problem is new. Symptoms are resolved. ian
[2019-03-25 13:51] VITALS: TEMP 97.9
[2019-03-25 13:53] VITALS: BP 159/89; O2SAT 95
== END 2019-03-25 13:42 | disposition home or self-care (01) ==
LOC: ER 10:38
PROC: 0D20XUZ Change Feeding Device in Upper Intestinal Tract, External Approach (ICD-10-PCS; principal; 2019-03-25)
DX: Z43.1 Encounter for attention to gastrostomy (principal); I48.91 Unspecified atrial fibrillation; E78.5 Hyperlipidemia, unspecified; F03.90 Unspecified dementia, unspecified severity, without behavioral disturbance, psychotic disturbance, mood disturbance, and anxiety; Z79.82 Long term (current) use of aspirin
CPT/HCPCS: 49465; 99283

== ENCOUNTER 2019-04-23 13:41 | Inpatient (IN) | payer OTHER ==
--- OUTSIDE RECORDS SUMMARY | 2019-04-23 14:58 | XMS REPORT ---
:1935 [facility] [address] [place] [address] Care Team Providers Name Role Phone JJ [...] for FINAL REPORT PATIENT ID: COMPLETE exam:->YANNICK [id number] TECHNIQUE: Grayscale ultrasound of the kidneys and [...] MDReport Verified Date/Time: 03/11/2019 11:24:38 Reading Location: [address] Radiology Reading Room , ABDOMEN/KUB, 2019-03-10 15:36:[address] FINAL REPORT PATIENT ID: 1 VIEW AP Bharti. Please [phone] RAD, ABDOMEN/KUB, 1 obtain xrays before VIEW [...] MDReport Verified Date/Time: 03/10/2019 15:36:47 Reading Location: [facility] Radiology Reading Room ESIUM 2019-03-10 07:38:00 Test Item Value Reference Range Comments MAGNESIUM (BEAKER) (test ways=795) 1.8 mg/dL 1.6-2.6 Specimen slightly hemolyzed [id number] 07:38:00 Test Item Value Reference Range Comments PHOSPHORUS (BEAKER) (test 2.8 mg/dL 2.3-4.7 Specimen slightly hemolyzed krhu=012) BASIC METABOLIC [id number] 07:38:00 Test Item Value Reference Range Comments SODIUM (BEAKER) (test 142 meq/L 136-145 zsjb=523) POTASSIUM (BEAKER) (test 4.7 meq/L 3.5-5.1 Specimen slightly kqwt=311) hemolyzed CHLORIDE (BEAKER) (test 112 meq/L 98-107 ofjm=020) CO2 (BEAKER) (test 24 meq/L 22-29 gohy=948) BLOOD UREA NITROGEN 25 mg/dL 7-21 (BEAKER) (test cyab=232) CREATININE (BEAKER) (test 1.86 mg/dL 0.57-1.25 Specimen slightly xypt=042) hemolyzed GLUCOSE RANDOM (BEAKER) 122 mg/dL 70-105 (test htjx=250) CALCIUM (BEAKER) (test 9.5 mg/dL 8.4-10.2 gcas=393) EGFR (BEAKER) (test 35 mL/min/1.73 sq m ESTIMATED GFR IS NOT lzva=6405) ACCURATE CREATININE CLEARANCE IN PREDICTING GLOMERULAR FILTRATION RATE. ESTIMATED GFR IS NOT APPLICABLE FOR DIALYSIS PATIENTS. HEPATIC FUNCTION [id number] 07:38:00 Test Item Value Reference Range Comments TOTAL PROTEIN (BEAKER) (test 7.4 gm/dL 6.0-8.3 Specimen slightly hemolyzed vgeb=144) ALBUMIN (BEAKER) (test 3.0 g/dL 3.5-5.0 Specimen slightly hemolyzed idvm=8920) BILIRUBIN TOTAL (BEAKER) (test 0.6 mg/dL 0.2-1.2 Specimen slightly hemolyzed amsi=708) BILIRUBIN DIRECT (BEAKER) (test 0.3 mg/dL 0.1-0.5 Specimen slightly hemolyzed joqa=593) ALKALINE PHOSPHATASE (BEAKER) 67 U/L 40-150 (test zxpl=030) AST (SGOT) (BEAKER) (test 21 U/L 5-34 Specimen slightly hemolyzed prxb=554) ALT (SGPT) (BEAKER) (test 13 U/L 6-55 Specimen slightly hemolyzed woyf=993) CBC W/PLT COUNT & AUTO [id number] 05:18:00 Test Item Value Reference Range Comments WHITE BLOOD CELL COUNT (BEAKER) (test fuht=174) 6.7 K/ L 3.5-10.5 RED BLOOD CELL COUNT (BEAKER) (test kegs=053) 2.54 M/ L 4.63-6.08 HEMOGLOBIN (BEAKER) (test zsmx=521) 7.9 GM/DL 13.7-17.5 HEMATOCRIT (BEAKER) (test xbjm=174) 25.7 % 40.1-51.0 MEAN CORPUSCULAR VOLUME (BEAKER) (test dbvc=477) 101.2 fL 79.0-92.2 MEAN CORPUSCULAR HEMOGLOBIN (BEAKER) (test 31.1 pg 25.7-32.2 ccrn=581) MEAN CORPUSCULAR HEMOGLOBIN CONC (BEAKER) (test 30.7 GM/DL 32.3-36.5 rehx=797) RED CELL DISTRIBUTION WIDTH (BEAKER) (test 14.4 % 11.6-14.4 efgc=499) PLATELET COUNT (BEAKER) (test vhat=750) 295 K/CU MM 150-450 MEAN PLATELET VOLUME (BEAKER) (test mgtv=514) 9.4 fL 9.4-12.4 NUCLEATED RED BLOOD CELLS (BEAKER) (test 0 /100 WBC 0-0 ouru=143) NEUTROPHILS RELATIVE PERCENT (BEAKER) (test 77 % oumi=864) LYMPHOCYTES RELATIVE PERCENT (BEAKER) (test 11 % iexq=229) MONOCYTES RELATIVE PERCENT (BEAKER) (test 9 % tcuu=838) EOSINOPHILS RELATIVE PERCENT (BEAKER) (test 3 % hmbg=506) BASOPHILS RELATIVE PERCENT (BEAKER) (test 1 % wtwt=854) NEUTROPHILS ABSOLUTE COUNT (BEAKER) (test 5.10 K/ L 1.78-5.38 hmof=430) LYMPHOCYTES ABSOLUTE COUNT (BEAKER) (test 0.73 K/ L 1.32-3.57 bpuk=803) MONOCYTES ABSOLUTE COUNT (BEAKER) (test 0.59 K/ L 0.30-0.82 ksoa=026) EOSINOPHILS ABSOLUTE COUNT (BEAKER) (test 0.19 K/ L 0.04-0.54 daiu=480) BASOPHILS ABSOLUTE COUNT (BEAKER) (test 0.04 K/ L 0.01-0.08 yxtx=094) IMMATURE GRANULOCYTES-RELATIVE PERCENT (BEAKER) 0 % 0-1 (test hpeg=6035) [id number] 07:28:00 Test Item Value Reference Range Comments PHOSPHORUS (BEAKER) (test nsek=139) 3.3 mg/dL 2.3-4.7 [id number] 07:28:00 Test Item Value Reference Range Comments MAGNESIUM (BEAKER) (test mjie=374) 1.9 mg/dL 1.6-2.6 BASIC METABOLIC [id number] 07:28:00 Test Item Value Reference Range Comments SODIUM (BEAKER) (test 141 meq/L 136-145 vkly=818) POTASSIUM (BEAKER) (test 4.8 meq/L 3.5-5.1 ebnn=677) CHLORIDE (BEAKER) (test 109 meq/L 98-107 annx=326) CO2 (BEAKER) (test 25 meq/L 22-29 bfmr=660) BLOOD UREA NITROGEN 31 mg/dL 7-21 (BEAKER) (test tfrh=264) CREATININE (BEAKER) (test 2.13 mg/dL 0.57-1.25 miqj=835) GLUCOSE RANDOM (BEAKER) 109 mg/dL 70-105 (test tuqu=487) CALCIUM (BEAKER) (test 9.4 mg/dL 8.4-10.2 kkew=275) EGFR (BEAKER) (test 30 mL/min/1.73 sq m ESTIMATED GFR IS NOT posq=1518) ACCURATE CREATININE CLEARANCE IN PREDICTING GLOMERULAR FILTRATION RATE. ESTIMATED GFR IS NOT APPLICABLE FOR DIALYSIS PATIENTS. HEPATIC FUNCTION [id number] 07:28:00 Test Item Value Reference Range Comments TOTAL PROTEIN (BEAKER) (test gicx=951) 7.5 gm/dL 6.0-8.3 ALBUMIN (BEAKER) (test uaew=1428) 3.1 g/dL 3.5-5.0 BILIRUBIN TOTAL (BEAKER) (test pvpz=821) 0.6 mg/dL 0.2-1.2 BILIRUBIN DIRECT (BEAKER) (test pbvh=413) 0.4 mg/dL 0.1-0.5 ALKALINE PHOSPHATASE (BEAKER) (test dfvt=237) 75 U/L 40-150 AST (SGOT) (BEAKER) (test pqok=555) 19 U/L 5-34 ALT (SGPT) (BEAKER) (test mkho=058) 15 U/L 6-55 CBC W/PLT COUNT & AUTO [id number] 06:42:00 Test Item Value Reference Range Comments WHITE BLOOD CELL COUNT (BEAKER) (test szis=821) 6.8 K/ L 3.5-10.5 RED BLOOD CELL COUNT (BEAKER) (test nmif=412) 2.63 M/ L 4.63-6.08 HEMOGLOBIN (BEAKER) (test ixlv=160) 8.3 GM/DL 13.7-17.5 HEMATOCRIT (BEAKER) (test euxr=088) 26.8 % 40.1-51.0 MEAN CORPUSCULAR VOLUME (BEAKER) (test ehwf=345) 101.9 fL 79.0-92.2 MEAN CORPUSCULAR HEMOGLOBIN (BEAKER) (test 31.6 pg 25.7-32.2 vjjd=425) MEAN CORPUSCULAR HEMOGLOBIN CONC (BEAKER) (test 31.0 GM/DL 32.3-36.5 ldrt=766) RED CELL DISTRIBUTION WIDTH (BEAKER) (test 14.5 % 11.6-14.4 cwrz=333) PLATELET COUNT (BEAKER) (test bhzj=357) 310 K/CU MM 150-450 MEAN PLATELET VOLUME (BEAKER) (test cwhk=755) 9.6 fL 9.4-12.4 NUCLEATED RED BLOOD CELLS (BEAKER) (test 0 /100 WBC 0-0 wdev=068) NEUTROPHILS RELATIVE PERCENT (BEAKER) (test 73 % oezl=920) LYMPHOCYTES RELATIVE PERCENT (BEAKER) (test 13 % utfh=972) MONOCYTES RELATIVE PERCENT (BEAKER) (test 10 % urjh=524) EOSINOPHILS RELATIVE PERCENT (BEAKER) (test 3 % punn=597) BASOPHILS RELATIVE PERCENT (BEAKER) (test 1 % guyt=792) NEUTROPHILS ABSOLUTE COUNT (BEAKER) (test 4.93 K/ L 1.78-5.38 lxls=088) LYMPHOCYTES ABSOLUTE COUNT (BEAKER) (test 0.87 K/ L 1.32-3.57 hwae=163) MONOCYTES ABSOLUTE COUNT (BEAKER) (test 0.67 K/ L 0.30-0.82 opew=941) EOSINOPHILS ABSOLUTE COUNT (BEAKER) (test 0.18 K/ L 0.04-0.54 mdkz=539) BASOPHILS ABSOLUTE COUNT (BEAKER) (test 0.07 K/ L 0.01-0.08 erni=276) IMMATURE GRANULOCYTES-RELATIVE PERCENT (BEAKER) 1 % 0-1 (test pgyo=6040) URINALYSIS W/ REFLEX URINE [id number] 07:45:00 Test Item Value Reference Range Comments COLOR (BEAKER) (test uasr=917) [place] CLARITY (BEAKER) (test pznw=479) Hazy SPECIFIC GRAVITY UA (BEAKER) (test lerk=571) 1.012 1.001-1.035 PH UA (BEAKER) (test wgae=968) 6.5 5.0-8.0 PROTEIN UA (BEAKER) (test zecs=598) 100 mg/dL Negative GLUCOSE UA (BEAKER) (test hmtw=136) Negative Negative KETONES UA (BEAKER) (test navp=107) Negative Negative BILIRUBIN UA (BEAKER) (test sjjb=463) Negative Negative BLOOD UA (BEAKER) (test siod=089) Large Negative NITRITE UA (BEAKER) (test rmiz=593) Negative Negative LEUKOCYTE ESTERASE UA (BEAKER) (test tjbo=544) Moderate Negative UROBILINOGEN UA (BEAKER) (test hhyj=085) 0.2 mg/dL 0.2-1.0 RBC UA (BEAKER) (test oldg=416) 586 /HPF WBC UA (BEAKER) (test yquy=807) 265 /HPF SOURCE(BEAKER) (test ujbf=6327) BASIC METABOLIC [id number] 06:52:00 Test Item Value Reference Range Comments SODIUM (BEAKER) (test 140 meq/L 136-145 jaid=898) POTASSIUM (BEAKER) (test 4.7 meq/L 3.5-5.1 Specimen moderately epjd=426) hemolyzed CHLORIDE (BEAKER) (test 103 meq/L 98-107 vglb=053) CO2 (BEAKER) (test 28 meq/L 22-29 nsca=565) BLOOD UREA NITROGEN 40 mg/dL 7-21 (BEAKER) (test uegm=333) CREATININE (BEAKER) (test 2.24 mg/dL 0.57-1.25 Specimen moderately wumm=544) hemolyzed GLUCOSE RANDOM (BEAKER) 119 mg/dL 70-105 (test svvd=033) CALCIUM (BEAKER) (test 10.0 mg/dL 8.4-10.2 eflb=788) EGFR (BEAKER) (test 28 mL/min/1.73 sq m ESTIMATED GFR IS NOT oine=8304) ACCURATE CREATININE CLEARANCE IN PREDICTING GLOMERULAR FILTRATION RATE. ESTIMATED GFR IS NOT APPLICABLE FOR DIALYSIS PATIENTS. [id number] 06:41:00 Test Item Value Reference Range Comments MAGNESIUM (BEAKER) (test 2.1 mg/dL 1.6-2.6 Specimen moderately hemolyzed ifru=641) [id number] 06:41:00 Test Item Value Reference Range Comments PHOSPHORUS (BEAKER) (test 4.2 mg/dL 2.3-4.7 Specimen moderately hemolyzed lxsn=253) HEPATIC FUNCTION [id number] 06:41:00 Test Item Value Reference Range Comments TOTAL PROTEIN (BEAKER) (test 8.0 gm/dL 6.0-8.3 Specimen moderately hemolyzed jmhj=204) ALBUMIN (BEAKER) (test 3.1 g/dL 3.5-5.0 Specimen moderately hemolyzed zsho=8488) BILIRUBIN TOTAL (BEAKER) (test 0.5 mg/dL 0.2-1.2 Specimen moderately hemolyzed btoe=254) BILIRUBIN DIRECT (BEAKER) 0.2 mg/dL 0.1-0.5 Specimen moderately hemolyzed (test bfth=873) ALKALINE PHOSPHATASE (BEAKER) 87 U/L 40-150 (test uwoz=583) AST (SGOT) (BEAKER) (test 39 U/L 5-34 Specimen moderately hemolyzed mygq=044) ALT (SGPT) (BEAKER) (test 22 U/L 6-55 Specimen moderately hemolyzed gdyd=728) CBC W/PLT COUNT & AUTO [id number] 06:20:00 Test Item Value Reference Range Comments WHITE BLOOD CELL COUNT (BEAKER) (test hafo=597) 8.0 K/ L 3.5-10.5 RED BLOOD CELL COUNT (BEAKER) (test qnhu=930) 2.74 M/ L 4.63-6.08 HEMOGLOBIN (BEAKER) (test mwzb=480) 8.8 GM/DL 13.7-17.5 HEMATOCRIT (BEAKER) (test tjie=271) 27.7 % 40.1-51.0 MEAN CORPUSCULAR VOLUME (BEAKER) (test busb=623) 101.1 fL 79.0-92.2 MEAN CORPUSCULAR HEMOGLOBIN (BEAKER) (test 32.1 pg 25.7-32.2 jkuc=718) MEAN CORPUSCULAR HEMOGLOBIN CONC (BEAKER) (test 31.8 GM/DL 32.3-36.5 zfaw=547) RED CELL DISTRIBUTION WIDTH (BEAKER) (test 14.6 % 11.6-14.4 ncbu=826) PLATELET COUNT (BEAKER) (test iowi=432) 365 K/CU MM 150-450 MEAN PLATELET VOLUME (BEAKER) (test gost=276) 9.4 fL 9.4-12.4 NUCLEATED RED BLOOD CELLS (BEAKER) (test 0 /100 WBC 0-0 kdgj=157) NEUTROPHILS RELATIVE PERCENT (BEAKER) (test 74 % juhe=147) LYMPHOCYTES RELATIVE PERCENT (BEAKER) (test 12 % myeo=454) MONOCYTES RELATIVE PERCENT (BEAKER) (test 11 % dfmm=347) EOSINOPHILS RELATIVE PERCENT (BEAKER) (test 2 % ajos=122) BASOPHILS RELATIVE PERCENT (BEAKER) (test 1 % occk=606) NEUTROPHILS ABSOLUTE COUNT (BEAKER) (test 5.89 K/ L 1.78-5.38 jlst=383) LYMPHOCYTES ABSOLUTE COUNT (BEAKER) (test 0.94 K/ L 1.32-3.57 hlbn=009) MONOCYTES ABSOLUTE COUNT (BEAKER) (test 0.86 K/ L 0.30-0.82 djxh=181) EOSINOPHILS ABSOLUTE COUNT (BEAKER) (test 0.19 K/ L 0.04-0.54 cxhy=987) BASOPHILS ABSOLUTE COUNT (BEAKER) (test 0.07 K/ L 0.01-0.08 rvsc=899) IMMATURE GRANULOCYTES-RELATIVE PERCENT (BEAKER) 0 % 0-1 (test ximu=4306) GLUCOSE BEDSIDE [id number] 13:57:00 Test Item Value Reference Range Comments GLUCOSE BEDSIDE TESTING (test code=GLUBED) 155 mg/dL 70-110 GLUCOSE BEDSIDE [id number] 10:46:00 Test Item Value Reference Range Comments GLUCOSE BEDSIDE TESTING (test code=GLUBED) 122 mg/dL 70-110 GLUCOSE BEDSIDE [id number] 08:20:00 Test Item Value Reference Range Comments GLUCOSE BEDSIDE TESTING (test code=GLUBED) 149 mg/dL 70-110 BASIC METABOLIC [id number] 06:18:00 Test Item Value Reference Range Comments [...] 0.8-1.3 CALCIUM (test code=CA) 8.7 MG/DL 8.5-10.1 [id number] 06:18:00 Test Item Value Reference Range Comments PHOSPHOROUS (test code=PHOS) 3.2 MG/DL 2.5-4.9 [id number] 06:18:00 Test Item Value Reference Range Comments MAGNESIUM (test code=MAG) 2.5 MG/DL 1.8-2.4 HGB [id number] 06:04:00 Test Item Value Reference Range Comments HEMOGLOBIN (test code=HGB) 8.4 G/DL 12.3-15.9 HEMATOCRIT (test code=HCT) 26.8 % 35.8-46.7 GLUCOSE BEDSIDE [id number] 18:27:00 Test Item Value Reference Range Comments GLUCOSE BEDSIDE TESTING (test code=GLUBED) 144 mg/dL 70-110 - XR ABDOMEN 1 [id number] 15:20:00 Name: CHEYENNE MACHADO JR [facility] : 1935 Age/S: 83 / M [address] Unit #: [id number] Loc: [place] [address] Phys: Erin Bird MD Acct: [id number] Dis Date: Status: ADM IN PHONE #: [phone] Exam Date: 02/24/2019 1315 FAX #: Reason: CONSTIPATION? EXAMS: CPT: [id number] XR ABDOMEN 1 V 96807 Fluoro Time: DAP (Gy m2): Air Kerma [...] JR : 1935 Age/S: 83 / M [address] Unit #: [id number] Loc: [place] [address] Phys: Erin Bird MD Acct: [id number] Dis Date: Status: ADM IN PHONE #: [phone] Exam Date: 02/24/2019 1315 FAX #: Reason : CONSTIPATION? EXAMS: CPT: [id number] XR ABDOMEN 1 V 36244 Fluoro Time : DAP (Gy m2): Air Kerma (mGy): <Continued> Technologist: Indiana Renteria, RT(R) Trnscb Date /Time: 02/24/2019 (152) [id number] Orig Print D/T: S: (2053) PAGE 2 Signed ReportGLUCOSE BEDSIDE [id number] 11:51:00 Test Item Value Reference Range Comments GLUCOSE BEDSIDE TESTING (test code=GLUBED) 108 mg/dL 70-110 GLUCOSE BEDSIDE [id number] 07:50:00 Test Item Value Reference Range Comments GLUCOSE BEDSIDE TESTING (test code=GLUBED) 113 mg/dL 70-110 GLUCOSE BEDSIDE [id number] 17:26:00 Test Item Value Reference Range Comments GLUCOSE BEDSIDE TESTING (test code=GLUBED) 149 mg/dL 70-110 GLUCOSE BEDSIDE [id number] 11:50:00 Test Item Value Reference Range Comments GLUCOSE BEDSIDE TESTING (test code=GLUBED) 187 mg/dL 70-110 GLUCOSE BEDSIDE [id number] 08:44:00 Test Item Value Reference Range Comments GLUCOSE BEDSIDE TESTING (test code=GLUBED) 118 mg/dL 70-110 GLUCOSE BEDSIDE [id number] 17:36:00 Test Item Value Reference Range Comments GLUCOSE BEDSIDE TESTING (test code=GLUBED) 164 mg/dL 70-110 GLUCOSE BEDSIDE [id number] 12:40:00 Test Item Value Reference Range Comments GLUCOSE BEDSIDE TESTING (test code=GLUBED) 146 mg/dL 70-110 GLUCOSE BEDSIDE [id number] 08:06:00 Test Item Value Reference Range Comments GLUCOSE BEDSIDE TESTING (test code=GLUBED) 173 mg/dL 70-110 GLUCOSE BEDSIDE [id number] 06:11:00 Test Item Value Reference Range Comments GLUCOSE BEDSIDE TESTING (test code=GLUBED) 88 mg/dL 70-110 GLUCOSE BEDSIDE [id number] 00:02:00 Test Item Value Reference Range Comments GLUCOSE BEDSIDE TESTING (test code=GLUBED) 111 mg/dL 70-110 GLUCOSE BEDSIDE [id number] 18:27:00 Test Item Value Reference Range Comments GLUCOSE BEDSIDE TESTING (test code=GLUBED) 148 mg/dL 70-110 GLUCOSE BEDSIDE [id number] 05:52:00 Test Item Value Reference Range Comments GLUCOSE BEDSIDE TESTING (test code=GLUBED) 99 mg/dL 70-110 GLUCOSE BEDSIDE [id number] 21:07:00 Test Item Value Reference Range Comments GLUCOSE BEDSIDE TESTING (test code=GLUBED) 147 mg/dL 70-110 GLUCOSE BEDSIDE [id number] 16:45:00 Test Item Value Reference Range Comments GLUCOSE BEDSIDE TESTING (test code=GLUBED) 95 mg/dL 70-110 GLUCOSE BEDSIDE [id number] 13:37:00 Test Item Value Reference Range Comments GLUCOSE BEDSIDE TESTING (test code=GLUBED) 104 mg/dL 70-110 GLUCOSE BEDSIDE [id number] 06:06:00 Test Item Value Reference Range Comments GLUCOSE BEDSIDE TESTING (test code=GLUBED) 124 mg/dL 70-110 GLUCOSE BEDSIDE [id number] 20:49:00 Test Item Value Reference Range Comments GLUCOSE BEDSIDE TESTING (test code=GLUBED) 139 mg/dL 70-110 GLUCOSE BEDSIDE [id number] 16:56:00 Test Item Value Reference Range Comments GLUCOSE BEDSIDE TESTING (test code=GLUBED) 150 mg/dL 70-110 GLUCOSE BEDSIDE [id number] 12:38:00 Test Item Value Reference Range Comments GLUCOSE BEDSIDE TESTING (test code=GLUBED) 116 mg/dL 70-110 GLUCOSE BEDSIDE [id number] 08:10:00 Test Item Value Reference Range Comments GLUCOSE BEDSIDE TESTING (test code=GLUBED) 142 mg/dL 70-110 GLUCOSE BEDSIDE [id number] 21:28:00 Test Item Value Reference Range Comments GLUCOSE BEDSIDE TESTING (test code=GLUBED) 85 mg/dL 70-110 GLUCOSE BEDSIDE [id number] 16:32:00 Test Item Value Reference Range Comments GLUCOSE BEDSIDE TESTING (test code=GLUBED) 158 mg/dL 70-110 GLUCOSE BEDSIDE [id number] 12:21:00 Test Item Value Reference Range Comments GLUCOSE BEDSIDE TESTING (test code=GLUBED) 90 mg/dL 70-110 GLUCOSE BEDSIDE [id number] 08:27:00 Test Item Value Reference Range Comments GLUCOSE BEDSIDE TESTING (test code=GLUBED) 159 mg/dL 70-110 GLUCOSE BEDSIDE [id number] 16:26:00 Test Item Value Reference Range Comments GLUCOSE BEDSIDE TESTING (test code=GLUBED) 195 mg/dL 70-110 GLUCOSE BEDSIDE [id number] 11:20:00 Test Item Value Reference Range Comments GLUCOSE BEDSIDE TESTING (test code=GLUBED) 92 mg/dL 70-110 GLUCOSE BEDSIDE [id number] 07:43:00 Test Item Value Reference Range Comments GLUCOSE BEDSIDE TESTING (test code=GLUBED) 90 mg/dL 70-110 GLUCOSE BEDSIDE [id number] 20:08:00 Test Item Value Reference Range Comments GLUCOSE BEDSIDE TESTING (test code=GLUBED) 143 mg/dL 70-110 GLUCOSE BEDSIDE [id number] 16:41:00 Test Item Value Reference Range Comments GLUCOSE BEDSIDE TESTING (test code=GLUBED) 120 mg/dL 70-110 GLUCOSE BEDSIDE [id number] 12:37:00 Test Item Value Reference Range Comments GLUCOSE BEDSIDE TESTING (test code=GLUBED) 93 mg/dL 70-110 GLUCOSE BEDSIDE [id number] 08:29:00 Test Item Value Reference Range Comments GLUCOSE BEDSIDE TESTING (test code=GLUBED) 98 mg/dL 70-110 GLUCOSE BEDSIDE [id number] 18:03:00 Test Item Value Reference Range Comments GLUCOSE BEDSIDE TESTING (test code=GLUBED) 93 mg/dL 70-110 - XR ABDOMEN 1 [id number] 16:33:00 Name: [facility] : 1935 Age/S: 83 / M [address] Unit #: [id number] Loc: [place] [address] Phys: Marybeth Pizano MD Acct: [id number] Dis Date: Status: ADM IN PHONE #: [phone] Exam Date: 02/14/2019 1610 FAX #: Reason: ABDOMINAL DISTENSION , INCREASE RISIDUAL FEEDING EXAMS: CPT: [id number] XR ABDOMEN 1 V 85693 Fluoro Time: DAP (Gy m2): Air Kerma [...] 1 Signed Report Name: CHEYENNE MACHADO JR [facility] : 1935 Age/S: 83 / M [address] Unit #: [id number] Loc: [place] [address] Phys: Marybeth Pizano MD Acct: [id number] Dis Date: Status: ADM IN PHONE #: [phone] Exam Date: 02/14/2019 1610 FAX #: Reason: ABDOMINAL DISTENSION, INCREASE RISIDUAL FEEDING EXAMS: CPT: [id number] XR ABDOMEN 1 V 76660 Fluoro Time: DAP (Gy m2): Air Kerma (mGy): <Continued> Technologist: Paras ReynagaRT(R)(CT); ... Trnscb Date/Time: 02/14/2019 (1633) [email or web address] Orig Print D/T: S: 02/14/2019 (1636) PAGE 2 Signed ReportGLUCOSE BEDSIDE [id number] 11:34 :00 Test Item Value Reference Range Comments GLUCOSE BEDSIDE TESTING (test code=GLUBED) 113 mg/dL 70-110 GLUCOSE BEDSIDE [id number] 08:16:00 Test Item Value Reference Range Comments GLUCOSE BEDSIDE TESTING (test code=GLUBED) 142 mg/dL 70-110 GLUCOSE BEDSIDE [id number] 06:15:00 Test Item Value Reference Range Comments GLUCOSE BEDSIDE TESTING (test code=GLUBED) 95 mg/dL 70-110 BASIC METABOLIC [id number] 06:06:00 Test Item Value Reference Range Comments [...] 0.8-1.3 CALCIUM (test code=CA) 9.4 MG/DL 8.5-10.1 [id number] 06:06:00 Test Item Value Reference Range Comments PHOSPHOROUS (test code=PHOS) 3.6 MG/DL 2.5-4.9 BASIC METABOLIC [id number] 06:06:00 Test Item Value Reference Range Comments [...] 0.8-1.3 CALCIUM (test code=CA) 9.4 MG/DL 8.5-10.1 [id number] 06:06:00 Test Item Value Reference Range Comments PHOSPHOROUS (test code=PHOS) 3.6 MG/DL 2.5-4.9 GLUCOSE BEDSIDE [id number] 20:39:00 Test Item Value Reference Range Comments GLUCOSE BEDSIDE TESTING (test code=GLUBED) 165 mg/dL 70-110 GLUCOSE BEDSIDE [id number] 16:26:00 Test Item Value Reference Range Comments GLUCOSE BEDSIDE TESTING (test code=GLUBED) 110 mg/dL 70-110 GLUCOSE BEDSIDE [id number] 11:26:00 Test Item Value Reference Range Comments GLUCOSE BEDSIDE TESTING (test code=GLUBED) 148 mg/dL 70-110 GLUCOSE BEDSIDE [id number] 08:22:00 Test Item Value Reference Range Comments GLUCOSE BEDSIDE TESTING (test code=GLUBED) 130 mg/dL 70-110 GLUCOSE BEDSIDE [id number] 03:19:00 Test Item Value Reference Range Comments GLUCOSE BEDSIDE TESTING (test code=GLUBED) 90 mg/dL 70-110 GLUCOSE BEDSIDE [id number] 11:51:00 Test Item Value Reference Range Comments GLUCOSE BEDSIDE TESTING (test code=GLUBED) 93 mg/dL 70-110 BASIC METABOLIC [id number] 11:10:00 Test Item Value Reference Range Comments [...] (test code=CA) 9.3 MG/DL 8.5-10.1 GLUCOSE BEDSIDE [id number] 03:09:00 Test Item Value Reference Range Comments GLUCOSE BEDSIDE TESTING (test code=GLUBED) 87 mg/dL 70-110 GLUCOSE BEDSIDE [id number] 08:02:00 Test Item Value Reference Range Comments GLUCOSE BEDSIDE TESTING (test code=GLUBED) 158 mg/dL 70-110 GLUCOSE BEDSIDE [id number] 08:01:00 Test Item Value Reference Range Comments GLUCOSE BEDSIDE TESTING (test code=GLUBED) 163 mg/dL 70-110 GLUCOSE BEDSIDE [id number] 23:54:00 Test Item Value Reference Range Comments GLUCOSE BEDSIDE TESTING (test code=GLUBED) 135 mg/dL 70-110 GLUCOSE BEDSIDE [id number] 16:42:00 Test Item Value Reference Range Comments GLUCOSE BEDSIDE TESTING (test code=GLUBED) 145 mg/dL 70-110 GLUCOSE BEDSIDE [id number] 08:24:00 Test Item Value Reference Range Comments GLUCOSE BEDSIDE TESTING (test code=GLUBED) 137 mg/dL 70-110 GLUCOSE BEDSIDE [id number] 09:16:00 Test Item Value Reference Range Comments GLUCOSE BEDSIDE TESTING (test code=GLUBED) 128 mg/dL 70-110 BASIC METABOLIC [id number] 06:53:00 Test Item Value Reference Range Comments [...] (test code=CA) 8.8 MG/DL 8.5-10.1 GLUCOSE BEDSIDE [id number] 01:53:00 Test Item Value Reference Range Comments GLUCOSE BEDSIDE TESTING (test code=GLUBED) 132 mg/dL 70-110 - [facility] [id number] 15:31:00 Name: CHEYENNE MACHADO JR [facility] : 1935 Age/S: 83 / M [address] Unit #: [id number] Loc: [place] [address] Phys: Cat Mcgrath MD Acct: [id number] Dis Date: Status : ADM IN PHONE #: [phone] Exam Date: 02/06/2019 1520 FAX #: Reason: MEDICATION EXAMS: CPT: [id number] [facility] PERC [id number] Fluoro Time: 4:11 DAP (Gy m2): 10.69 [...] was obtained. Prior to beginning the procedure, [place] Protocol was used to confirm the patient' [...] dilated over a guidewire and an 18 [place] TANIYA gastrostomy catheter was advanced intothe stomach [...] Signed Report (CONTINUED) Name: CHEYENNE MACHADO JR [facility] : 6Age/ S: 83 / M [address] Unit #: [id number] Loc: [place] [address] Phys: Cat Mcgrath MD Acct: [id number] Dis Date: Status: ADM IN PHONE#: [phone] Exam Date: 02/06/2019 1520 FAX #: Reason: MEDICATION EXAMS: CPT: [id number] [facility] PERC 24774 Fluoro Time:4:11 DAP (Gy m2): 10.69 Air [...] JR : 1935 Age/S: 83 / M [address] Unit # : [id number] Loc: [place] [address] Phys: Cat Mcgrath MD Acct: [id number] Dis Date: Status: ADM IN PHONE #: [phone] Exam Date: 02/06/2019 1520 FAX #: Reason: MEDICATION EXAMS: CPT: [id number] [facility] PERC 44224 Fluoro Time: 4:11 DAP ( Gy m2): 10.69 Air Kerma (mGy): 45 <Continued> Technologist: RT Elvin(R) Trnscashley Date/Time: 02/06/2019 (1531) SurinderPR7 PAGE 3 Signed Report - [facility] [id number] 15:31:00 Name: CHEYENNE MACHADO JR : 1935 Age/S: 83 / M [address] Unit #: [id number] Loc: [place] [address] Phys: Cat Mcgrath MD Acct: [id number] Dis Date: Status : ADM IN PHONE #: [phone] Exam Date: 02/06/2019 1520 FAX #: Reason: MEDICATION EXAMS: CPT: [id number] [facility] PERC 39426 Fluoro Time: 4:11 DAP (Gy m2): 10.69 [...] was obtained. Prior to beginning the procedure, [place] Protocol was used to confirm the patient' [...] dilated over a guidewire and an 18 [place] TANIYA gastrostomy catheter was advanced intothe stomach [...] Signed Report (CONTINUED) Name: CHEYENNE MACHADO JR [facility] : 6Age/ S: 83 / M [address] [address] Unit #: [id number] Loc: [place] [address] Phys: Cat Mcgrath MD Acct: [id number] Dis Date: Status: ADM IN PHONE#: [phone] Exam Date: 02/06/2019 1520 FAX #: Reason: MEDICATION EXAMS: CPT: [id number] INS GASTRO TUBE PERC 70306 Fluoro Time:4:11 DAP (Gy m2): 10.69 Air [...] 2 Signed Report Name: CHEYENNE MACHADO JR [place] : 1935 Age/S: 83 /M [address] Unit #: [id number] Loc: [place] [address] Phys: Cat Mcgrath MD Acct: [id number] Dis Date: Status: ADM IN PHONE #: [phone] Exam Date: 02/06/2019 1520 FAX #: Reason: MEDICATION EXAMS: CPT: [id number] INS GASTRO TUBE PERC 98797 Fluoro Time: 4:11 DAP (Gy m2): 10.69 Air Kerma (mGy): 45 <Continued> Technologist : RT Elvin(R) Trndcb Date/Time: 02/06/2019 (1531) [email or web address] Orig Print D/T: S: 02/06/2019 (1534) PAGE 3 Signed Report- [facility] [id number] 15:22:00 Name: CHEYENNE MACHADO JRland : 1935 Age/S: 83 / M [address] Unit #: [id number] Loc: [place] [address] Phys: Marybeth Pizano MD Acct: [id number] Dis Date: Status : ADM IN PHONE #: [phone] Exam Date: 02/06/2019 1441 FAX #: Reason: IV access EXAMS: CPT: [id number] US GUIDANCE VASC ACCESS 29643 EXAMINATION: NON-TUNNELED PERIPHERAL VENOUS CATHETER PLACEMENT. LOCATION: [...] ultrasound guidance. A short 10 cm 5 Nigerien catheter was then passed into the left [...] Report ( CONTINUED) Name: CHEYENNE MACHADO JR [facility] : 1935 Age/S: 83 / M [address] Unit #: [id number] Loc: [place] [address] Phys : Marybeth Pizano MD Acct: [id number] Dis Date: Status: ADM IN PHONE #: [phone] Exam Date: 02/06/2019 1441 FAX #: Reason: IV access EXAMS:CPT: [id number] US GUIDANCE VASC ACCESS 74906 <Continued> at 1522 Reported and signed by: Cat Mcgrath M.D. CC: Marybeth Romeo Technologist: Tierra Jo, RT(R),RDMS(AB) Trnscb Date/Time: 02/06/2019 (3910) Flaquito7 PAGE 2 Signed Report Name: CHEYENNE MACHADO JR [place] : 1935 Age/S: 83 / M [address] Unit #: [id number] Loc: [place] [address] Phys: Marybeth Pizano MD Acct: [id number] Dis Date: Status: ADM IN PHONE #: [phone] Exam Date: 02/06/2019 1441 FAX #: Reason: IV access EXAMS: CPT: [id number] US GUIDANCE VASC ACCESS 52938 <Continued> Orig Print D/T: S: 02/06/2019 (3065) Probe: PAGE 3 Signed ReportGLUCOSE BEDSIDE [id number] 12:29:00 Test Item Value Reference Range Comments GLUCOSE BEDSIDE TESTING (test code=GLUBED) 116 mg/dL 70-110 GLUCOSE BEDSIDE [id number] 08:06:00 Test Item Value Reference Range Comments GLUCOSE BEDSIDE TESTING (test code=GLUBED) 144 mg/dL 70-110 BASIC METABOLIC [id number] 07:28:00 Test Item Value Reference Range Comments [...] 0.8-1.3 CALCIUM (test code=CA) 8.8 MG/DL 8.5-10.1 [id number] 07:28:00 Test Item Value Reference Range Comments PHOSPHOROUS (test code=PHOS) 3.9 MG/DL 2.5-4.9 [id number] 07:28:00 Test Item Value Reference Range Comments MAGNESIUM (test code=MAG) 2.1 MG/DL 1.8-2.4 GLUCOSE BEDSIDE [id number] 17:09:00 Test Item Value Reference Range Comments GLUCOSE BEDSIDE TESTING (test code=GLUBED) 152 mg/dL 70-110 GLUCOSE BEDSIDE [id number] 12:31:00 Test Item Value Reference Range Comments GLUCOSE BEDSIDE TESTING (test code=GLUBED) 152 mg/dL 70-110 GLUCOSE BEDSIDE [id number] 08:26:00 Test Item Value Reference Range Comments GLUCOSE BEDSIDE TESTING (test code=GLUBED) 156 mg/dL 70-110 BASIC METABOLIC [id number] 07:13:00 Test Item Value Reference Range Comments [...] (test code=CA) 9.0 MG/DL 8.5-10.1 CBC W/AUTO [id number] 06:40:00 Test Item Value Reference Range Comments [...] CONSISTANT code=MDIFF) WITH AUTO DIFFERENTIAL. BASIC METABOLIC [id number] 06:35:00 Test Item Value Reference Range Comments [...] CALCIUM (test code=CA) 9.0 MG/DL 8.5-10.1 PROTHROMBIN [id number] 06:29:00 Test Item Value Reference Range Comments PT PATIENT (test code=PTP) 14.9 SECONDS 9.3-12.9 INTERNATIONAL NORMAL RATIO (test code=INR) 1.29 INR Unit 0.8-1.2 CBC W/AUTO [id number] 06:24:00 Test Item Value Reference Range Comments [...] DIFF/SCN CRITERIA UA RFLX MICR CULT IF [id number] 01:25:00 Test Item Value Reference Range Comments [...] no other srcUA RFLX MICR CULT IF [id number] 01:22:00 Test Item Value Reference Range Comments [...] no other src- CT ABD PELVIS W/O [id number] 17:12:00 Name: CHEYENNE [facility]ACHADO [facility] [place] : 1935 Age/S: 83 / M [address] Unit #: [id number] Loc: [place] [address] Phys: Angeles Vogt MD Acct: [id number] Dis Date: Status: ADM IN PHONE #: [phone] Exam Date: 02/04/2019 1701 FAX #: Reason: PEG TUBE PREPARATION. EXAMS: CPT: [id number] CT ABD PELVIS W/O CONT 70353 HISTORY: PEG TUBE PREPARATION. EXAM: CT abdomen [...] PAGE 1 Signed Report (CONTINUED) Name: CHEYENNE MACAHDO JR : 1935 Age/S: 83 / M [address] Unit #: [id number] Loc: [place] [address] Phys: Angeles Vogt MD Acct: [id number] Dis Date: Status: ADM IN PHONE #: [phone] Exam Date: 2018 1701 FAX #: Reason: PEG TUBE PREPARATION. EXAMS: CPT: [id number] CT ABD PELVIS W/O CONT 92233 <Continued> consistent with hyperdense cysts. No suspicious [...] (1712) GladysR.KW9 Orig Print D/T: S: 02/04/2019 (1391) PAGE 2 Signed Report- XR SWLW FUNC W/C [id number] 15:31:00 Name : CHEYENNE MACHADO JR [place] : Age/S: 83 / M [address] Unit #: [id number] Loc: [place] [address] Phys: Marybeth Pizano MD Acct: [id number] Dis Date: Status: ADM IN PHONE #: [phone] Exam Date: 02/04/2019 1400 FAX #: Reason: SPEECH EVAL EXAMS: CPT: [id number] XR SWLW FUNC W/C V 61082 Fluoro Time: 60 DAP (Gy m2): Air [...] 1 Signed Report Name: CHEYENNE MACHADO JRHENRY [place] : 1935 Age/S: 83 / M [address] Unit #: [id number] Loc: [place] [address] Phys: HarinderJose Alejandro Acct: [id number] Dis Date: Status: ADM IN PHONE #: [phone] Exam Date: 02/04/2019 1400 FAX #: Reason: SPEECH EVALEXAMS: CPT: [id number] XR SWLW FUNC W/C V 87978 Fluoro Time: 60 DAP (Gy m2): Air Kerma (mGy) : <Continued> Technologist: Beckie Linda, RT(R) Trnscb Date/Time: 02/04/2019 (1534) [email or web address] Orig Print D/T: S: 02/04/2019 (7003) PAGE 2 Signed ReportGLUCOSE BEDSIDE [id number] 11:55:00 Test Item Value Reference Range Comments GLUCOSE BEDSIDE TESTING (test code=GLUBED) 100 mg/dL 70-110 VANCOMYCIN [id number] 10:10:00 Test Item Value Reference Range Comments VANCOMYCIN TROUGH (test code=VANCT) 18.3 mcG/ML 10-20 GLUCOSE BEDSIDE [id number] 08:00:00 Test Item Value Reference Range Comments GLUCOSE BEDSIDE TESTING (test code=GLUBED) 88 mg/dL 70-110 GLUCOSE BEDSIDE [id number] 05:58:00 Test Item Value Reference Range Comments GLUCOSE BEDSIDE TESTING (test code=GLUBED) 94 mg/dL 70-110 - XR CHEST 1 [id number] 21:59:00 [facility] 1935 Age/S: 83 / M [address] Unit #: [id number] Loc: [place] [address] Phys: Concha Kc MD Acct: [id number] Dis Date: Status: ADM IN PHONE #: [phone] Exam Date: 02/03/2019 2158 FAX #: Reason: R/O ASPIRATION EXAMS: CPT: [id number] XR CHEST 1 V 01505 Fluoro Time: DAP (Gy m2): Air Kerma [...] 1 Signed Report Name: CHEYENNE MACHADO JR [place] : 1935 Age/S: 83 / M [address] Unit #: [id number] Loc: [place] [address] Phys: Concha Kc MD Acct: [id number] Dis Date: Status: ADM IN PHONE #: [phone] Exam Date: 2018 FAX #: Reason: R/O ASPIRATION EXAMS: CPT: [id number] XR CHEST 1 V 28231 Fluoro Time: DAP (Gy m2): Air Kerma (mGy): < Continued> Technologist: Peter Kim, RT(R)(CT); ... Trnscb Date/Time: 02/03/2019 (2158) t.[email or web address].[email or web address] Orig Print D/T: S: 02/03/2019 (672) PAGE 2 Signed ReportGLUCOSE BEDSIDE [id number] 21:58:00 Test Item Value Reference Range Comments GLUCOSE BEDSIDE TESTING (test code=GLUBED) 123 mg/dL 70-110 GLUCOSE BEDSIDE [id number] 18:07:00 Test Item Value Reference Range Comments GLUCOSE BEDSIDE TESTING (test code=GLUBED) 144 mg/dL 70-110 RENAL FUNCTION [id number] 16:41:00 Test Item Value Reference Range Comments [...] (test code=PHOS) 3.8 MG/DL 2.5-4.9 GLUCOSE BEDSIDE [id number] 11:23:00 Test Item Value Reference Range Comments GLUCOSE BEDSIDE TESTING (test code=GLUBED) 133 mg/dL 70-110 - CT HEAD/BRAIN W/O [id number] 08:31:00 Name: CHEYENNE MACHADO JR [facility] : 1935 Age/S: 83 / M [address] Unit #: [id number] Loc: [place] [address] Phys: Leia Aldana MD Acct: [id number] Dis Date: Status : ADM IN PHONE #: [phone] Exam Date: 02/03/2019 0657 FAX #: Reason: AMS, h/o recent stroke EXAMS: CPT: [id number] CT HEAD/BRAIN W/O CONT 40719 Dictation location: L11. CT HEAD WITHOUT CONTRAST. [...] JR : 1935 Age/S: 83 / M [address] Unit #: [id number] Loc: [place] [address] Phys: Leia Aldana MD Acct: [id number] Dis Date: Status: ADM IN PHONE #: [phone] Exam Date: 02/03/2019 0607 FAX #: Reason: AMS, h/o recent stroke EXAMS: CPT: [id number] CT HEAD/ BRAIN W/O CONT 13007 <Continued> CC: Marybeth Pizano MD; Leia Aldana MD Technologist:RT Rosalinda(R)(CT); .. CTDI: DLP: Trnscb Date/Time: 02/03/2019 (0831) t.SDR.SP17 Orig Print D/T: S : 02/03/2019 (0834) PAGE 2 Signed ReportGLUCOSE BEDSIDE [id number] 07:32:00 Test Item Value Reference Range Comments GLUCOSE BEDSIDE TESTING (test code=GLUBED) 137 mg/dL 70-110 GLUCOSE BEDSIDE [id number] 20:20:00 Test Item Value Reference Range Comments GLUCOSE BEDSIDE TESTING (test code=GLUBED) 113 mg/dL 70-110 GLUCOSE BEDSIDE [id number] 17:15:00 Test Item Value Reference Range Comments GLUCOSE BEDSIDE TESTING (test code=GLUBED) 141 mg/dL 70-110 GLUCOSE BEDSIDE [id number] 12:57:00 Test Item Value Reference Range Comments GLUCOSE BEDSIDE TESTING (test code=GLUBED) 146 mg/dL 70-110 RENAL FUNCTION [id number] 10:33:00 Test Item Value Reference Range Comments [...] 8.5-10.1 PHOSPHOROUS (test code=PHOS) 3.2 MG/DL 2.5-4.9 [id number] 10:33:00 Test Item Value Reference Range Comments VANCOMYCIN (test code=VANCO) 6.1 mcG/ML 5-40 GLUCOSE BEDSIDE [id number] 08:46:00 Test Item Value Reference Range Comments GLUCOSE BEDSIDE TESTING (test code=GLUBED) 151 mg/dL 70-110 GLUCOSE BEDSIDE [id number] 12:33:00 Test Item Value Reference Range Comments GLUCOSE BEDSIDE TESTING (test code=GLUBED) 114 mg/dL 70-110 - XR ABDOMEN 1 [id number] 10:52:00 Name: CHEYENNE MACHADO JR [facility] : 1935 Age/S: 83 / M [address] Unit #: [id number] Loc: [place] [address] Phys: Marybeth Pizano MD Acct: [id number] Dis Date: Status: ADM IN PHONE #: [phone] Exam Date: 02/01/2019 1046 FAX #: Reason: NG TUBE PLACEMENT EXAMS: CPT: [id number] XR ABDOMEN 1 V 44485 Fluoro Time: DAP (Gy m2): Air Kerma [...] 1 Signed Report Name: CHEYENNE MACHADO JR [place] : 1935 Age/S: 83 / M [address] Unit #: [id number] Loc: [place] [address] Phys : Marybeth Pizano MD Acct: [id number] Dis Date: Status: ADM IN PHONE #: [phone] Exam Date: 02/01/2019 1046 FAX #: Reason: NG TUBE PLACEMENT EXAMS: CPT: [id number] XR ABDOMEN 1 V 50144 Fluoro Time: DAP (Gy m2): Air Kerma (mGy) : <Continued> Technologist: Belen Lepe RT(R) Trndcb Date/Time: 02/01/2019 (1052) t.PR7 Orig Print D/T: S: 02/01/2019 (1056) PAGE 2 Signed Report- XR ABDOMEN 1 [id number] 09:25:00 Name: CHEYENNE MACHADO JR [place] : 1935 Age/S: 83 / M [address] Unit #: [id number] Loc: [place] [address] Phys: Marybeth Pizano MD Acct: [id number] Dis Date: Status: ADM IN PHONE #: [phone] Exam Date: 02/01/2019 0917 FAX #: Reason: NG TUBE PLACEMENT EXAMS: CPT: [id number] XR ABDOMEN 1 V 37452 Fluoro Time: DAP (Gy m2): Air Kerma [...] 1 Signed Report Name: CHEYENNE MACHADO JR [place] : 1935 Age/S: 83 / M [address] Unit #: [id number] Loc: [place] [address] Phys: Marybeth Pizano MD Acct: [id number] Dis Date: Status: ADM IN PHONE #: [phone] Exam Date: 02/01/2019916 FAX #: Reason: NG TUBE PLACEMENT EXAMS: CPT: [id number] XR ABDOMEN 1 V 45577 Fluoro Time: DAP (Gy m2): Air Kerma (mGy): <Continued> Technologist: Belen Lepe RT(R) Trnscb Date/Time: 02/01/2019 ( 924) SurinderEB14 Orig Print D/T: S: 02/01/2019 (928) PAGE 2 Signed ReportGLUCOSE BEDSIDE [id number] 08:03:00 Test Item Value Reference Range Comments GLUCOSE BEDSIDE TESTING (test code=GLUBED) 117 mg/dL 70-110 COMPREHENSIVE METABOLIC [id number] 06:25:00 Test Item Value Reference Range Comments [...] (test code=ALKP) 47 Unit/L 50-136 RENAL FUNCTION [id number] 06:25:00 Test Item Value Reference Range Comments PHOSPHOROUS (test code=PHOS) 3.2 MG/DL 2.5-4.9 [id number] 06:25:00 Test Item Value Reference Range Comments MAGNESIUM (test code=MAG) 1.8 MG/DL 1.8-2.4 COMPREHENSIVE METABOLIC [id number] 06:21:00 Test Item Value Reference Range Comments [...] TOTAL (test code=ALKP) Unit/L 50-136 RENAL FUNCTION [id number] 06:21:00 Test Item Value Reference Range Comments PHOSPHOROUS (test code=PHOS) MG/DL 2.5-4.9 [id number] 06:21:00 Test Item Value Reference Range Comments MAGNESIUM (test code=MAG) MG/DL 1.8-2.4 CBC W/AUTO [id number] 06:11:00 Test Item Value Reference Range Comments [...] (test code=MDIFF) NO DIFF/SCN CRITERIA RAPID PLASMA [id number] 06:09:00 Test Item Value Reference Range Comments RAPID PLASMA REAGIN (test Non Reactive Non Reactive Performed At: [facility] code=RPR) [id number] [place], [place] [id number] Delbert Edmonds MD Ph:[phone] - XR CHEST 1 [id number] 21:19:00 Name: CHEYENNE MACHADO JR [facility] : 1935 Age/S: 83 / M [address] Unit #: [id number] Loc: [place] [address] Phys: Concha Kc MD Acct: [id number] Dis Date: Status: ADM IN PHONE #: [phone] Exam Date: 01/31/20192050 FAX #: Reason: EVAL FORASPIRATION EXAMS: CPT: [id number] XR CHEST 1 V 19445 Fluoro Time: DAP (Gy m2): Air Kerma [...] PAGE 1 SignedReport Name: CHEYENNE MACHADO JR [place] : 1935 Age/S: 83 / M [address] Unit #: [id number] Loc: [place] [address] Phys: Concha Kc MD Acct: [id number] Dis Date: Status: ADM IN PHONE #: [phone] Exam Date: 01/31/20192050 FAX #: Reason: EVAL FOR ASPIRATION EXAMS: CPT: [id number] XR CHEST 1 V 62298 Fluoro Time: DAP ( Gy m2): Air Kerma (mGy): <Continued> Technologist: Peter Kim, RT(R)(CT); ... Trnscb Date/Time: 01/31/2019 ( 2118) t.FARHADR.AL7 Orig Print D/T: S: 01/31/2019 (2121) PAGE 2 Signed Report- XR ABDOMEN 1 [id number] 21:12:00 Name: CHEYENNE MACHADO JR [place] : 1935 Age/S: 83 / M [address] Unit #: [id number] Loc: [place] [address] Phys: Concha Kc MD Acct: [id number] Dis Date: Status: ADM IN PHONE #: [phone] Exam Date: 01/31/20192050 FAX #: Reason: NGT PLACEMENT EXAMS: CPT: [id number] XR ABDOMEN 1 V 26297 Fluoro Time: DAP (Gy m2): Air Kerma [...] M.D. CC : Marybeth Pizano MD; Kymberly BRARETO; Concha Kc MD PAGE 1 Signed Report Name: CHEYENNE MACHADO JR [place] : 1935 Age/S: 83 / M [address] Unit #: [id number] Loc: [place] [address] Phys: Concha Kc MD Acct: [id number] Dis Date: Status: ADM IN PHONE #: [phone] Exam Date: 01/31/20192050 FAX #: Reason: NGT PLACEMENT EXAMS: CPT: [id number] XR ABDOMEN 1 V 31064 Fluoro Time: DAP (Gy m2): Air Kerma (mGy): <Continued> Technologist: Peter Kim, RT(R)(CT); ... Trnscb Date/Time: 01/31/2019 (2111) [email or web address] Orig Print D/T: S: 01/31/2019 (2114) PAGE 2 Signed ReportGLUCOSE BEDSIDE [id number] 19:59:00 Test Item Value Reference Range Comments GLUCOSE BEDSIDE TESTING (test code=GLUBED) 131 mg/dL 70-110 GLUCOSE BEDSIDE [id number] 16:41:00 Test Item Value Reference Range Comments GLUCOSE BEDSIDE TESTING (test code=GLUBED) 160 mg/dL 70-110 GLUCOSE BEDSIDE [id number] 12:18:00 Test Item Value Reference Range Comments GLUCOSE BEDSIDE TESTING (test code=GLUBED) 163 mg/dL 70-110 GLUCOSE BEDSIDE [id number] 08:12:00 Test Item Value Reference Range Comments GLUCOSE BEDSIDE TESTING (test code=GLUBED) 162 mg/dL 70-110 GLUCOSE BEDSIDE [id number] 05:35:00 Test Item Value Reference Range Comments GLUCOSE BEDSIDE TESTING (test code=GLUBED) 179 mg/dL 70-110 RENAL FUNCTION [id number] 03:34:00 Test Item Value Reference Range Comments [...] LDL/HDL (test code=LDL/HDL) 2.42 Ratio 1.48-3.22 Avg [id number] 03:34:00 Test Item Value Reference Range Comments GLYCOSYLATED HEMOGLOBIN (HA1C) (test 5.3 % A1C 4.2-6.3 code=GLYHGB) ESTIMATED AVERAGE GLUCOSE (test code=EAG) 105 MG/DLest RENAL FUNCTION [id number] 03:24:00 Test Item Value Reference Range Comments [...] (test code=LDL/HDL) Ratio 1.48-3.22 Avg GLUCOSE BEDSIDE [id number] 00:00:00 Test Item Value Reference Range Comments GLUCOSE BEDSIDE TESTING (test code=GLUBED) 164 mg/dL 70-110 - XR ABDOMEN 1 [id number] 19:09:00 Name: CHEYENNE [facility]ACHADO [facility] [place] : 1935 Age/S: 83 / M [address] [address] Unit #: [id number] Loc: [place] [address] Phys: Marybeth Pizano MD Acct: [id number] Dis Date: Status: ADM IN PHONE #: [phone] Exam Date: 01/30/2019 7089 FAX #: Reason: confirm ng tube placement EXAMS: CPT: [id number] XR ABDOMEN 1 V 39952 Fluoro Time: DAP (Gy m2): Air Kerma [...] 1 Signed Report Name: CHEYENNE MACHADO JR [place] : 1935 Age/S: 83 / M [address] [place] [address] Unit #: [id number] Loc: [place] [address] Phys: Marybeth Pizano MD Acct: [id number] Dis Date: Status: ADM IN PHONE #: [phone] Exam Date: 01/30/2019 2035 FAX #: Reason: confirm ng tube placement EXAMS: CPT: [id number] XR ABDOMEN 1 V 56693 Fluoro Time: DAP (Gy m2): Air Kerma (mGy): < Continued> Technologist: Kamilah Perez RT(R)(CT)(MRI) Trnscb Date/Time: 01/30/2019 (1908) tCIARRLilianRK5 Orig Print D/T: S : 01/30/2019 (1911) PAGE 2 SignedReportBASIC METABOLIC [id number] 16:47:00 Test Item Value Reference Range Comments [...] 9.2 MG/DL 8.5-10.1 - MRI BRAIN W/O [id number] 11:36:00 FAX: Marybeth Miller MD Camps: PM St: ADM Name: CHEYENNE MACHADO JR : 1935 Age/S: 83/M [address] Unit #: [id number] Loc: [place] [address] Phys: Marybeth Pizano MD Acct: [id number] Dis Date: Status: ADM IN PHONE #: [phone] Exam Date: 01/30/2019 1056 FAX #: Reason: ISCHEMIC STROKE EXAMS: CPT: [id number] MRI BRAIN W/O CONTRAST 18432 Dictation location: L11. MRI BRAIN WITHOUT CONTRAST [...] in the left mastoid air cells. The saxman lenses of the both eyes are absent. IMPRESSION: Limited exam due to patient motion. 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 Vascular territory and involves predominantly the INDUSTRIAL CONTROLS TECHNICIAN territory however there is also MCA involvement, unusual distribution. Recommend follow-up. 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 at 1136 Reported and signed by : Myranda Hitchcock M.D. PAGE 1 Signed Report (CONTINUED) FAX: Marybeth Miller MD Camps:PM St: [facility] 1935 Age/S: 83/M [address] [address] Unit #: [id number] Loc: [place] [address] Phys: Marybeth Pizano MD Acct: [id number] Dis Date: Status: ADM IN PHONE #: [phone] Exam Date: 01/30/2019 1056 FAX #: Reason: ISCHEMIC STROKE EXAMS: CPT: [id number] MRI BRAIN W/O CONTRAST 16588 <Continued&gt ; CC: Marybeth Pizano MD Technologist: Irais Andujar, (R)(MR) Transcribed Date/Time/By: 01/30/2019 (1136) :Layo.SP17 Orig Print D/T: S: 01/30/2019 (1139) PAGE 2 Signed Report- US RETRO [id number] 02:02:00 Name: CHEYENNE MACHADO JR [facility] : 1935 Age/S: 83 / M [address] Unit #: [id number] Loc: [place] [address] Phys: Nikita Damico MD Acct: [id number] Dis Date: Status: ADM IN PHONE #: [phone] Exam Date: 01/29/2019 1700 FAX #: Reason: YANNICK EXAMS: CPT: [id number] [facility] LTD [address] DICTATION LOCATION: [facility] HISTORY: Male, 83 years of age with [...] MD; Marybeth Pizano MD Technologist: Natalie Smallwood Trndcb Date /Time: 01/30/2019 (0202) SurinderCLW PAGE 1 Signed Report Name: CHEYENNE MACHADO JR [facility] : 1935 Age/S: 83 / M [address] Unit #: [id number] Loc: [place] [address] Phys: Nikita Damico MD Acct: [id number] Dis Date: Status: ADM IN PHONE #: [phone] Exam Date: 01/29/2019 1700 FAX #: Reason: YANNICK EXAMS: CPT: [id number] [facility] [address] <Continued> Orig Print D/T: S: 01/30/2019 ( 0206) Probe: PAGE 2Signed ReportBASIC METABOLIC [id number] 14:29:00 Test Item Value Reference Range Comments [...] 0.8-1.3 CALCIUM (test code=CA) 9.0 MG/DL 8.5-10.1 [id number] 14:29:00 Test Item Value Reference Range Comments PHOSPHOROUS (test code=PHOS) 2.4 MG/DL 2.5-4.9 [id number] 14:29:00 Test Item Value Reference Range Comments MAGNESIUM (test code=MAG) 1.9 MG/DL 1.8-2.4 CBC W/AUTO [id number] 14:22:00 Test Item Value Reference Range Comments [...] REQUIRED (test code=MDIFF) NO DIFF/SCN CRITERIA PROTHROMBIN [id number] 15:25:00 Test Item Value Reference Range Comments PT PATIENT (test code=PTP) 13.7 SECONDS 9.3-12.9 INTERNATIONAL NORMAL RATIO (test code=INR) 1.19 INR Unit 0.8-1.2 THROMBOPLASTIN TIME [id number] 15:25:00 Test Item Value Reference Range Comments THROMBOPLASTIN TIME PARTIAL (test code=PTT) 29.6 SECONDS 26-35 - XR CHEST 1 [id number] 14:47:00 Name: CHEYENNE MACHADO JR [facility] : 1935 Age/S: 83 / M [address] Unit #: [id number] Loc: [place] [address] Phys: Maninder Schmidt MD Acct: [id number] Dis Date: Status: ADM IN PHONE #: [phone] Exam Date: 01/28/2019 1315 FAX #: Reason: epigatric pain EXAMS: CPT: [id number] XR CHEST 1 V 13823 Fluoro Time: DAP (Gy m2): Air Kerma [...] or edema. Enlargement ofthe pulmonary arterial trunk [id number] Reported and signed by: Seth Mendoza M.D. CC: Maninder Schmidt MD; Krys BARRETO PAGE 1 Signed Report Name: CHEYENNE MACHADO JR [facility] : 1935 Age/S: 83 / M [address] Unit #: [id number] Loc: [place] [address] Phys: Maninder Schmidt MD Acct: [id number] Dis Date: Status: ADM IN PHONE #: [phone] Exam Date: 01/28/2019 1315 FAX #: Reason: epigatric pain EXAMS: CPT: [id number] XR CHEST 1 V 22333 Fluoro Time: DAP (Gy m2): Air Kerma (mGy): & lt;Continued> Technologist: Paras Reynaga RT(R)(CT) Trnscb Date/Time: 01/28/2019 (0387) [email or web address] Orig Print D /T: S: 01/28/2019 (8379) PAGE 2 Signed ReportTROPONIN I [id number] 14:18:00 Test Item Value Reference Range Comments TROPONIN I RAPID (test 0.04 ng/mL 0.00-0.08 - The use of serial sampling code=TROPIRAP) and testing protocol is a recommended practice- An elevated troponin level alone is often not sufficient for diagnosis of myocardial infarction. CHEMISTRY 8 [id number] 14:14:00 Test Item Value Reference Range Comments ISTAT-SODIUM (test code=NAP) mmol/L 135-146 ISTAT-POTASSIUM (test code=KP) mmol/L 3.5-4.9 ISTAT-CHLORIDE (test code=CLP) mmol/L 98-109 ISTAT-CARBON DIOXIDE (test code=ISTAT-CO2) mmol/L 24-29 ISTAT CALCIUM IONIZED (test code=ISTAT-RC) mmol/L 1.12-1.32 ISTAT-GLUCOSE (test code=GLUP) mg/dL 70-105 ISTAT-BUN (test code=BUNP) mg/dL 8-26 BEDSIDE CREATININE (test code=CREATBED) mg/dL 0.6-1.3 GLOMERULAR FILTRATION RATE POC (test code=GFRBED) 26 35-81 CHEMISTRY 8 [id number] 14:14:00 Test Item Value Reference Range Comments [...] (test 35-81 code=GFRBED) - CT HEAD/BRAIN W/O [id number] 13:07:00 Name: CHEYENNE MACHADO JR [facility] : 1935 Age/S: 83 / M [address] [facility] #: [id number] Loc: [place] [address] Phys: Maninder Schmidt MD Acct: [id number] Dis Date: Status : REG ER PHONE #: [phone] Exam Date: 01/28/2019 1224 FAX #: Reason: r/o stroke EXAMS: CPT: [id number] CT HEAD/BRAIN W/O CONT 18883 C3 CLINICAL HISTORY: Mental status changes, CVA, [...] JR : 1935 Age/S: 83 / M [id number] Unit #: [id number] Loc: [place] [address] Phys: Maninder Schmidt MD Acct: [id number] Dis Date: Status: REG ER PHONE #: [phone] Exam Date: 01/28/2019 1227 FAX #: Reason: r/o stroke EXAMS: CPT: [id number] CT HEAD/BRAIN W/O CONT 67593 <Continued> at 1307 Reported and signed by : Man Ritchie M.D. CC: Maninder Schmidt MD; Krys BARRETO Technologist:Eva Malik, RT(R)( MR) CTDI: DLP: Trnscb Date/Time: 01/28/2019 (3412) [email or web address] Orig Print D/T: S: 01/28/2019 (4801) PAGE 2 Signed ReportCBC W/O [id number] 13:01:00 Test Item Value Reference Range Comments [...] 9.70 fL 7.0-9.6 - CT HEAD/BRAIN W/O [id number] 11:32:00 Name: CHEYENNE MACHADO JR : 1935 Age/S: 83 / M [address] Unit #: [id number] Loc: [place] [address] Phys: Undefined Provider Acct: [id number] Dis Date: Status : REG REF PHONE #: [phone] Exam Date: 01/28/2019 1047 FAX #: Reason: ALTEREDNEURO STATUS, CONFUSION,HALLUCINATIONS EXAMS: CPT: [id number] CT HEAD/BRAIN W/O CONT 00115 CLINICAL HISTORY: Mental status changes , CVA, [...] JR : 1935 Age/S: 83 / M [address] [address] Unit #: [id number] Loc: [place] [address]Qett: Undefined Provider Acct: [id number] Dis Date: Status: REG REF PHONE #: [phone] Exam Date: 01/28/2019 1047 FAX #: Reason: ALTERED NEURO STATUS, CONFUSION,HALLUCINATIONS EXAMS: CPT: [id number] CT HEAD/BRAIN W/O CONT 71799 <Continued> at 1132 Reported and signed by: Merlyn Denis M.D. CC: Technologist:Eva Malik, RT(R)(MR)CTDI: DLP: Trnscb Date/Time: 01/28/2019 (1132) t.MILES Orig Print D/T: S: 01/28/2019 (1136) PAGE 2 Signed Report - CT HEAD/BRAIN W/O [id number] 13:02:00 Name: CHEYENNE MACHADO JR : 1935 Age/S: 83 / M [address] Unit #: [id number] Loc: [place] [address] Phys: Undefined Provider Acct: [id number] Dis Date: Status : REG REF PHONE #: [phone] Exam Date: 01/21/2019 1243 FAX #: Reason: SUBDURAL HEMATOMA EXAMS: CPT: [id number] CT HEAD/BRAIN W/O CONT [address] HEAD WITHOUT CONTRAST HISTORY: SUBDURAL [...] JR : 1935 Age/S: 83 / M [address] Unit #: [id number] Loc: [place] [address] Phys: Undefined Provider Acct: [id number] Dis Date: Status : REG REF PHONE #: [phone] Exam Date: 1243 FAX #: Reason: SUBDURAL HEMATOMA EXAMS: CPT: [id number] CT HEAD/BRAIN W/O CONT 91974 <Continued> CC: Technologist: Irais Andujar RT(R)(MR) CTDI: DLP: Trnscb Date/Time: 01/21 (8036) [email or web address] Orig Print D/T: S: 01/21/2019 (5928) PAGE 2 Signed Report
[2019-04-23] MEDS ORDERED: ONDANSETRON 4 MG/2 ML VIAL IV PRN (15:15)
[2019-04-23] MEDS ORDERED: ACETAMINOPHEN 500 MG TAB PO PRN (15:15)
[2019-04-23] MEDS ORDERED: ENOXAPARIN 40 MG/0.4 ML SQ SCH (16:00)
[2019-04-23 16:28] LABS: Protime INR 1.18
--- NOTE | 2019-04-23 16:36 | P.HP ---
Certification for Inpatient Patient admitted to: Inpatient With expected LOS: >2 Midnights Patient will require the following post-hospital care: None (prison placement) Practitioner: I am a practitioner with admitting privileges, knowledge of patient current condition, hospital course, and medical plan of care. Services: Services provided to patient in accordance with Admission requirements found in Title 42 Section 412.3 of the Code of Federal Regulations Patient History Date of Service: 04/23/19 Primary Care Provider: Dr. PachecoSC Reason for admission: Direct admission History of Present Illness: 83-year-old male with history of AFib, CVA, dementia, hyperlipidemia and chronic renal disease. Patient was a direct admit as recommended by infectious disease. Infectious Disease has been following patient. Patient has a large sacral decubitus ulcer. His been getting worse. He discuss about the possibility of treatment with family. Family wanted it to be evaluated and address. Patient was admitted to the hospital for further evaluation. Infectious Disease also recommended for surgery to possibly debride area. Patient with severe dementia. I was not able to obtain any other history. Allergies No Known Allergies Allergy (Verified 04/23/19 15:32) Home medications list reviewed: Yes Home Medications: Amino Acids/Protein Hydrolys [Pro-Stat Max Liquid Packet] 30 ml FT DAILY Ascorbic Acid 500 mg FT DAILY 04/23/19 Aspirin Tab [Cayetano Aspirin*] 325 mg FT DAILY 04/23/19 Doxycycline Monohydrate 100 mg FT Q12H 04/23/19 Hydralazine HCl 50 mg FT TID 04/23/19 Metoprolol Tartrate [Lopressor] 100 mg FT BID 04/23/19 Multivit-Min/Ferrous Fumarate [Multivitamin Liquid] 15 ml FT DAILY 04/23/19 Polyethylene Glycol 3350 [Miralax] 17 gm FT DAILY 04/23/19 Pravastatin Sodium [Pravachol] 40 mg FT DAILY 04/23/19 Zinc Sulfate [Zinc Sulfate*] 220 mg FT DAILY 04/23/19 - Past Medical/Surgical History Diabetic: No -: Hypertension -: History of CVA -: Severe Alzheimer's dementia -: Chronic decubitus ulcer -: Chronic Abarca catheter -: PEG tube in place Past Surgical History: Unable to obtain -: PEG tube placement Psychosocial/ Personal History: [facility]. - Family History Family History: Reviewed- Non-Contributory - Social History Smoking Status: Unknown if ever smoked Alcohol use: No CD- Drugs: No Caffeine use: No Place of Residence: [facility] Review of Systems is unable to be obtained Physical Examination - Physical Exam General: Alert, In no apparent distress, Demented (Severe dementia) HEENT: Atraumatic, Normocephalic Neck: Supple Respiratory: Clear to auscultation bilaterally, Normal air movement Cardiovascular: Normal pulses, Regular rate/rhythm Gastrointestinal: Normal bowel sounds, Soft and benign, Non-distended, No tenderness, No masses, No rebound, Other (PEG tube in place) Musculoskeletal: No tenderness, No warmth Integumentary: Other (Not able to visualize decubitus ulcer.) Neurological: Normal speech, Dementia (Severe dementia) Urinary: Abarca catheter Assessment and Plan - Plan Impression: Acute on chronic Sacral decubitus ulcer, unstageable History of atrial fibrillation History of CVA Hypertension History of chronic Abarca catheter Hyperlipidemia Chronic renal disease History of PEG tube placement Plan: Acute on chronic Sacral decubitus ulcer, unstageable: Patient will be admitted for further evaluation. Will obtain blood, urine culture. Case discussed with infectious disease earlier. Will start IV antibiotic therapy. Surgery has been consulted. Patient will likely require surgical debridement tomorrow. Will discuss further with family. Will need obtain further information from the [facility]. Will need to address code status. Will also address plan of care with infectious disease. History of atrial fibrillation: Obtain and restart home medication. History of CVA: Obtain and restart home medication. Will provide DVT prophylaxis at this time. Hypertension: Obtain and start medication History of chronic Abarca catheter: Will send urine for culture. Patient with chronic Abarca catheter. Hyperlipidemia: Continue medication. Chronic renal disease: Will check and monitor lab. History of PEG tube placement: Patient with PEG tube. Discharge Plan: [facility] Plan to discharge in: Greater than 2 days - Advance Directives Does patient have a Living Will: No Does patient have a Durable POA for Healthcare: No - Code Status/Comfort Care Code Status Assessed: No (Not able to be obtained. Will obtain more information from [facility]) Time Spent Managing Pts Care (In Minutes): 55
[2019-04-23 16:38] VITALS: BMI 22.1
[2019-04-23 16:41] LABS: Albumin 2.2 g/dL (3.4-5.0); Bilirubin Total 0.4 mg/dL (0.2-1.0); Magnesium 2.5 mg/dL (1.8-2.4); Potassium 4.4 mmol/L (3.5-5.1); Protein, Total 8.3 g/dL (6.4-8.2)
[2019-04-23 16:52] LABS: Absolute Lymphocytes (CBC) 1.6 K/uL (0.7-4.9); Hematocrit 19.4 % (39.6-49.0); Lymphocytes % 21.1 % (15.3-44.8)
[2019-04-23 17:32] LABS: MPV 7.2 fL (7.6-11.3)
[2019-04-23] MEDS ORDERED: VANCOMYCIN 1.25 GM in NA CHLORIDE 0.9% 250 ML IVPB SCH (18:00)
[2019-04-23 18:32] LABS: Hematocrit 23.6 % (39.6-49.0)
--- NOTE | 2019-04-23 18:34 | RAD REPORT ---
EXAM DESCRIPTION: CT - Head Brain Wo Cont - 04/23/2019 6:14 pm CLINICAL HISTORY: Alteration of awareness/confusion COMPARISON: None TECHNIQUE: Computed axial tomography of the head was obtained. IV contrast was not requested. All CT scans are performed using dose optimization technique as appropriate and may include automated exposure control or mA/KV adjustment according to patient size. FINDINGS: Low-density within the left occipital lobe has the appearance of an old infarct. 6 centimeter low-density areas present within the left occipital parietal region. It contains areas o f increased density consistent with blood Cerebral atrophy is noted. A small low-density area is present along the right frontal convexity having the appearance of an old subdural hematoma. Alliance hole noted Fluid within the sinuses/ mastoids is not seen. IMPRESSION: 6 centimeter low-density area within the left occipital parietal region containing areas of increased density probably a subacute infarct with small amount of hemorrhage. 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 April 23, 2019
--- NOTE | 2019-04-23 18:37 | RAD REPORT ---
EXAM DESCRIPTION: Angela Single View04/23/2019 6:27 pm CLINICAL HISTORY: Congestion COMPARISON: none FINDINGS: The lungs appear clear of acute infiltrate. The heart is mildly enlarged IMPRESSION: No acute abnormalities displayed
[2019-04-23 18:55] LABS: Ferritin 356.4 ng/mL (26-388)
[2019-04-23] MEDS ORDERED: HOME MED 1 EA UNK (Hydralazine Hcl [Hydralazine Hcl] 50 MG) FT SCH (21:00)
[2019-04-23] MEDS ORDERED: HOME MED 1 EA UNK (Metoprolol Tartrate [Lopressor] 100 MG) FT SCH (21:00)
[2019-04-23] MEDS ORDERED: CEFEPIME 1 GM/VIAL IV SCH (21:00)
[2019-04-23] MEDS: METOPROLOL TAR 50 MG TAB FT SCH (23:07)
[2019-04-23] MEDS: CEFEPIME/SWI 1gm 10 ML IVP SCH (23:07)
[2019-04-23] MEDS: ATORVASTATIN 10 MG TAB FT SCH (23:07)
[2019-04-23] MEDS: HYDRALAZINE HCL 25 MG TABLET FT SCH (23:08)
[2019-04-24 04:21] LABS: Absolute Lymphocytes (CBC) 0.8 K/uL (0.7-4.9); Basophils % 1.3 % (0-1.3); Hematocrit 25.3 % (39.6-49.0); Lymphocytes % 13.3 % (15.3-44.8); RBC Red Blood Cell Count 2.84 M/uL (4.33-5.43)
[2019-04-24 04:37] LABS: Magnesium 2.5 mg/dL (1.8-2.4); Potassium 4.4 mmol/L (3.5-5.1)
--- NOTE | 2019-04-24 08:06 | RAD REPORT ---
EXAM DESCRIPTION: - CP - 04/23/2019 9:19 pm CLINICAL HISTORY: CVA Headache, drowsiness COMPARISON: No comparisons TECHNIQUE: Real-time sonographic evaluation of both carotid systems was performed. Doppler interroga tion was performed with waveform tracing bilaterally. FINDINGS: Normal high resistance waveforms are noted in both external carotid arteries. The common c arotid arteries and internal carotid arteries show normal low resistance waveforms. Moderate hard plaquing is present in both carotid bulbs, slightly greater on the left. Peak systolic and end diastolic velocity values and the ICA/CCA ratios are in the non-hemodynamically significant r zahraa. Antegrade flow seen in both vertebral arteries. IMPRESSION: Moderate hard plaquing in both carotid bulbs, greater on the left. No evidence of a hemodynamically significant stenosis.
[2019-04-24] MEDS ORDERED: VANCOMYCIN 1 GM in NA CHLORIDE 0.9% 500 ML IVPB SCH (09:00)
[2019-04-24] MEDS: HYDRALAZINE HCL 25 MG TABLET FT SCH ×3 (09:00→21:59)
[2019-04-24] MEDS: ZINC SULFATE 220 MG CAP FT SCH ×2 (09:00→14:46)
[2019-04-24] MEDS: MULTIVITAMINS 5 ML ORAL SYR FT SCH ×2 (09:00→14:46)
[2019-04-24] MEDS ORDERED: HOME MED 1 EA UNK (Pravastatin Sodium [Pravachol] 40 MG) FT SCH (09:00)
[2019-04-24] MEDS ORDERED: ASPIRIN 325 MG TAB FT SCH (09:00)
[2019-04-24] MEDS: METOPROLOL TAR 50 MG TAB FT SCH ×3 (09:00→21:59)
[2019-04-24] MEDS: POLYETHYL GLY 3350 17 GM/DOSE FT SCH ×2 (09:00→14:46)
[2019-04-24] MEDS: COLLAGENASE 30 GM OINTMENT TOP SCH (09:00)
[2019-04-24] MEDS: ASCORBIC ACID 500 MG TABLET FT SCH ×2 (09:00→14:48)
[2019-04-24] MEDS ORDERED: PROMOD 30 ML DOSE FT SCH (09:00)
[2019-04-24] MEDS: CEFEPIME/SWI 1gm 10 ML IVP SCH (09:30)
--- NOTE | 2019-04-24 11:28 | CON ---
Date of Consultation: 04/24/2019 Reason: Sacral decubitus. History Of Present Illness: The patient is an 83-year-old gentleman who was admitted from the [facility] to the emergency room and then to the floor for sacral decubitus. Workup has revealed other p roblems that the patient has. I was consulted to evaluate his sacral decubitus to see if it needs de bridement. He is lying in bed with no response. He is responsive only to movement but does not verb jamila anything. He is a DNR patient. He has had a history of subdural hematoma last December 2018 was treated with bur holes. He was previously on Coumadin in AFib and the sacral decubitus is recent over the last week or so. He has been very sleepy lately and this is all according to the daughter and per the medical record on the computer. There has been no fever or chills. No purulent discharg e. Dr. Buitrago saw the patient in the halfway and thought might need debridement that is why he was admitted. Review of Systems: Otherwise unremarkable. Past Medical History: Significant for hypertension, CVA, Alzheimer's, chronic Abarca catheter placeme nt, PEG tube. Allergies: NONE. Social History: The patient currently does not smoke or drink. Family History: Noncontributory. Physical Examination: Vital Signs: Stable. He is afebrile. General: He is awake again but not responsive. Head and Neck: No masses. Chest: Clear. Heart: S1, S2. Abdomen: Soft. Extremities: Neurovascular intact. Neuro: Nonfocal. Skin: Sacrum reveals approximately a 6 x 4 cm stage III sacral decubitus with some granulation tissu e and fibrin and some necrotic fibrin present which was easily removed with a gauze. There is no ernestina rounding erythema, warmth, edema, or purulent discharge. Diagnostic Data: Carotid artery ultrasound shows moderate hard plaquing in both carotid bulbs, great er on the left. No evidence of hemodynamically significant stenosis. Head CT shows 6 cm low-density area within the left occipital parietal region containing areas of increased and probably a subacute infarct with small amount of hemorrhage, old left occipital lobe infarct, small chronic subdural hem atoma along the right frontal convexity. The patient's H and H were 6.5 and 19.4. He has been trans fused, is up to 8.5 and 25.3. His white count is 6.2. His INR is 1.18. Chemistry reviewed. His GF R is 39. His protein levels, albumin is 2.2. Procalcitonin is normal. Assessment: 83-year-old gentleman with multiple medical problems with multiple medical issues with a sacral decubitus. Recommendations: Patient has too many comorbidities. Right now to consider surgical debridement of the fibrin on the wound. Collagenase dressing should suffice for the time being. Nutritional optimi zation. Vitamins as needed. Offloading air mattress. Consideration should be given for this patien t for hospice as his condition appears terminal. I discussed the case in detail with Dr. Mora and he will contact the family and discuss all options at this point. If his condition improves with med ical management and should he require debridement, we will address that at that point. /MODL Voice ID: [id number] Report ID: [id number]
--- NOTE | 2019-04-24 11:35 | RAD REPORT ---
EXAM DESCRIPTION: US - Urinary Bladder - 04/24/2019 11:05 am CLINICAL HISTORY: evaluate for bladder retention, chronic rich COMPARISON: No comparisons FINDINGS: No urinary bladder wall thickening or mass identified. No stone or other intraluminal mass seen. Tubing of the indwelling drainage catheter is visible within the lumen. Bladder volume was 648 milliliters. Available information indicates the Rich catheter was not clampe d for the procedure. IMPRESSION: Bladder volume was 648 milliliters. No bladder wall thickening or mass. No stone or intraluminal abnormality.
--- NOTE | 2019-04-24 13:34 | CON ---
83-year-old gentleman admitted from a intermediate due to sacral decubitus issue. I was consulted because he has a Rich problem. He has had multiple attempts at Rich, including being sent to [place] in March and plus a gross hematuria after Rich catheter was inflated in the urethra. I was called because his postvoid residual by ultrasound was about 900 cc, but the patient only voided 400 to 500 cc. We ordered a bladder ultrasound showing that there was no Rich balloon in the bladder, there was about 400 to 500 cc of urine in the bladder, so this concludes that the Rich balloon was most likely in the urethra, somewhere possible bulbar urethra. The patient did have a history of a TURP before and may have a bladder neck contracture. He had a CT scan back in February 2019 showing marked bladder distention, bilateral hydronephrosis and a 2 cm complex cystic mass in the left kidney. However, patient is pretty much in a intermediate and bed bound, gomer, had multiple CVAs, and had a CVA last week. His daughter is present and his son-in-law is present. We talked about the need for removing the Rich catheter, doing a cystoscopy to evaluate the urethra and possible colonic resection. However, due to his medical condition, this is too risky, so the best thing will be to do a bedside flexible cystoscopy to evaluate the urethra and try to get a Rich catheter in the bladder. If not, we will need to place a suprapubic tube. He did have a previous scar in his abdomen from partial bladder resection due to atonic bladder. I have reviewed his old CT scan and ultrasound. There was no bowel between the abdominal wall on the bladder. Review of Systems: Unremarkable. Past Medical History: Hypertension, CVA, Alzheimer's, Rich catheter placement , PEG tube. Social History: Does not smoke or drink. Family History: Noncontributory. Physical Examination: Vital Signs: He is afebrile, stable. Temperature 97.1, pulse 109, respiratory rate 16, BP 126/75, 98% sat on room air. General: He is awake, but not responsive. HEENT/Neck: No masses. Chest: Clear. Heart: S1, S2. Abdomen: Soft, nontender. Midline Well healled scar in the suprapubic area. Extremities: Warm. No swelling. : Testicles descended. There is about approximately 14-Kyrgyz Rich in the urethra. Home Medications: Include aspirin, hydralazine, metoprolol, Pravachol. Allergies: NO KNOWN DRUG ALLERGIES. Laboratory Data: Reviewed. CBC: White count 6.2, H and H are 8.5 and 25, platelet count 460. Coagulation: PT 13.8, INR 1.1, and PTT 30. Chemistry: Sodium 139, potassium 4.4, chloride 99, carbon dioxide 34, BUN 69, creatinine 1.7, GFR 39, glucose 111, calcium 9.6, magnesium 2.5. Assessment: Urinary retention, history of bilateral hydronephrosis, distended bladder, multiple attempts at Rich catheter, seems apparently not been able to get a Rich catheter in the bladder which tells me that either a stricture or bladder neck contracture or possible false passage. The patient needed to have the urethra evaluated. Got informed consent. Removed the old Rich catheter, prepped and draped patient, placed a flexible cystoscope per urethra with the assistance of nurse Kwon on 4th floor. I could see an area of rich balloon dilation in the bulbar urethra where the Rich balloon was. He was not bleeding. I was able to get into past the verumontanum and into the prostatic urethra. I could see a narrow bladder neck area, and the scope was able to fit through the area. I then placed the scope in the bladder, placed immediately a [employer] guidewire 0.38 through the scope, removing the scope leaving the wire in place and then placed a 16-Kyrgyz Ramona tip catheter over the guidewire into the bladder with good return of urine. The balloon was inflated with 10 cc of sterile water and plugged to a bag. Case was then turned over to Nursing. I was recalled to the room that the rich came out, so I rescoped pt and replace catheter with new 16fr mcgrath over a 0.38 guide wire with confirmation of urine output and cath staying in place. PB/MODL Voice ID: [id number] Report ID: [id number] ANASTASIYA
--- NOTE | 2019-04-24 14:00 | P.PN ---
Subjective Date of Service: 04/24/19 Primary Care Provider: Dr. Izaguirre-[place] Chief Complaint: Direct admission Subjective: Other (Patient with decreased alertness. But clinically stable considering subacute CVA.) Physical Examination - Vital Signs Temperature: 97.1 F Blood Pressure: 126/75 Pulse: 109 Respirations: 16 Pulse Ox (%): 98 - Physical Exam General: Alert, Other (Patient not able to follow commands appropriately.) HEENT: Atraumatic Neck: Supple Respiratory: Clear to auscultation bilaterally, Normal air movement Cardiovascular: Other (AFib rate slightly elevated) Gastrointestinal: Normal bowel sounds, Other (PEG tube in place) Musculoskeletal: No erythema, No tenderness, No warmth Integumentary: No tenderness/swelling, No erythema, No warmth, No cyanosis Neurological: Other (Neurological exam could not be fully performed.) Urinary: Other (Abarca catheter was replaced by urology.) - Studies Laboratory Data (last 24 hrs) 04/24/19 03:35: Sodium 138, Potassium 4.4, BUN 69 H, Creatinine 1.67 H, Glucose 111 H, Magnesium 2.5 H, Triglycerides 46, Cholesterol 85, HDL Cholesterol 46, Cholesterol/HDL Ratio 1.85 04/24/19 03:35: WBC 6.2 D, Hgb 8.5 L, Hct 25.3 L, Plt Count 460 H 04/23/19 18:03: Hgb 7.9 L*, Hct 23.6 L D 04/23/19 15:45: Sodium 136, Potassium 4.4, BUN 79 H, Creatinine 1.83 H, Glucose 118 H, Magnesium 2.5 H, Total Bilirubin 0.4, AST 35, ALT 49, Alkaline Phosphatase 72 04/23/19 15:45: APTT 30.8 04/23/19 15:45: WBC 7.6, Hgb 6.5 L*, Hct 19.4 L* D, Plt Count 543 H 04/23/19 15:45: PT 13.8 H, INR 1.18 Microbiology Data (last 24 hrs): 04/23/19 18:53 Wound - Sacral Gram Stain - Final Medications List Reviewed: Yes Assessment & Plan Discharge Plan: Alf (Likely with hospice) Plan to discharge in: 48 Hours Physician Review Additional Text: Impression: Altered mental status likely related to subacute 6 cm low-density left occipital parietal region infarct with small amount hemorrhage complicated with history of old left occipital lobe infarct and small chronic subdural hematoma status post nelson hole Urinary retention status post urology placed catheter with prior history of hydronephrosis, traumatic catheter placement Sacral decubitus ulcer Atrial fibrillation not on chronic anti coagulation therapy Hypertension Hyperlipidemia Chronic renal disease History of PEG tube placement due to dysphagia Anemia of chronic disease Plan: Altered mental status likely related to subacute 6 cm low-density left occipital parietal region infarct with small amount hemorrhage complicated with history of old left occipital lobe infarct and small chronic subdural hematoma status post nelson hole: History obtained from daughter. Case discussed at length with daughter/ and neurology. Patient likely had subacute CVA recently. MRI pending. EEG also pending. Neurology recommends aspirin 81 mg daily, folic acid, low-dose Lipitor and blood pressure control. Continue to monitor closely. Will continue to reassess. If his condition continues to decline patient may benefit with hospice. Continue with current medications. Code status was addressed yesterday with daughter. Patient is DNR. Urinary retention status post urology placed catheter with prior history of hydronephrosis, traumatic catheter placement: Urology was called to further evaluate. Urology placed catheter. It apparently dislodged. Urology replaced it again. Catheter now in place. Patient with history of hydronephrosis and traumatic catheter placement in the past. Will obtain more information. Sacral decubitus ulcer: Surgery has evaluated wound. Likely no need for IV antibiotic therapy. Will discuss with infectious disease. Atrial fibrillation not on chronic anti coagulation therapy: Continue with rate control medication. Patient previously on Coumadin. Patient not on chronic anti coagulation therapy due to history of subdural hematoma. Hypertension: Continue medication Hyperlipidemia: LDL well controlled. Continue with Lipitor 10 mg daily. Chronic renal disease: Continue to monitor closely. History of PEG tube placement due to dysphagia: Continue with PEG tube feeds. Anemia of chronic disease: Will continue to monitor closely. Patient may require transfusion if hemoglobin drops below 7.0. Time Spent Managing Pts Care (In Minutes): 55
[2019-04-24] MEDS: JEVITY 1.5 CAL LIQUID 1,000 ML BOT RTH SCH (14:15)
[2019-04-24 14:39] LABS: Urine Appearance TURBID; Urine Bilirubin NEGATIVE (NEG); Urine Blood 3+ (NEG); Urine Color RED; Urine Glucose NEGATIVE (NEG); Urine Protein 2+ (NEG); Urine Specific Gravity 1.015 (1.005-1.030); Urine Urobilinogen 0.2 mg/dL (0.2-1.0)
[2019-04-24 14:46] LABS: Urine Microscopic Reflex ORDER UMIC
[2019-04-24] MEDS: FOLIC ACID 1 MG TABLET FT SCH (14:47)
[2019-04-24] MEDS: ASPIRIN 81 MG CHEWABLE TABLET FT SCH (14:48)
[2019-04-24 15:17] LABS: Urine Bacteria 20-50 /HPF (NONE SEEN); Urine Culture Reflex Order NOT NEEDED; Urine Mucus 2+ /HPF (NONE SEEN); Urine RBC TNTC /HPF (NONE SEEN)
--- NOTE | 2019-04-24 16:05 | RAD REPORT ---
EXAM DESCRIPTION: MRI - Brain Wo Cont - 04/24/2019 3:28 pm CLINICAL HISTORY: CVA with hemorrhage. Hx of Subdural hematome 2019 COMPARISON: Head Brain Wo Cont dated 04/23/2019 TECHNIQUE: Sagittal T1-weighted images were obtained along with axial PD, heavily T2-weighted and T2 -FLAIR images. Axial DWI and ADC mapping sequences were also obtained along with coronal heavily T2-w eighted images. FINDINGS: Patient has a baseline of significant atrophy and chronic ischemic change. Ventriculomegal y is present probably out of proportion to the amount of volume loss. Patient may have a baseline of normal pressure hydrocephalus. No mass effect, edema or shift of midline structures. Encephalomalacia changes are present in the lef t parieto-occipital region. Diffusion-weighted imaging shows hyperintense signal along the superior m argin of the left parietal signal abnormality. There is corresponding diminished signal on ADC mappin g. Areas of hypointense T2/IR signal noted. T1 weighted imaging shows serpiginous areas of T1 hyperin tensity following the gyri of the involved left parietal and occipital tissues. No extra-axial fluid collections. No globe or orbital content abnormality. No sella or supra sella abnormality. Mastoid air cells and paranasal sinuses are clear. IMPRESSION: Abnormal noncontrast MRI imaging showing a mixed pattern of infarction involving the lef t parietal and occipital tissues. Patient shows small areas of acute infarction along the superior aspect of the involved left parietal tissues. There is a small amount of hemorrhage in this region. Patient also has gyriform T1 signal abnormalities and T2/ FLAIR signal abnormalities indicating subac [place] to chronic infarction changes in this region. Patient has likely had a subacute to remote infarc tion that has a superimposed acute fracture along the superior boundary of the old infarction. Patient also has as a baseline significant atrophy and mild chronic ischemic pattern. Ventriculomegaly is present and appears out of proportion to the amount of volume loss. Patient may h ave normal pressure hydrocephalus.
[2019-04-24] MEDS: ENOXAPARIN 30 MG/0.3 ML SQ SCH (16:08)
[2019-04-24] MEDS: ATORVASTATIN 10 MG TAB FT SCH (21:59)
[2019-04-24] MEDS: JUVEN PACKET FT SCH (22:00)
--- NOTE | 2019-04-25 00:43 | CON ---
Reason For Consultation: Consultation called because of subacute and acute stroke. Mr. Jacques is an 83-year-old patient who is very poorly responsive and unable to provide a history. H istory is obtained from the patient's daughter and chart review and the patient's son-in-law. History Of Present Illness: Mr. Jacques is an 83-year-old patient with atrial fibrillation, multiple s trokes subacute, traumatic subdural hematoma, dyslipidemia, chronic renal insufficiency, and large sa cral decubital ulcer. The patient was directly admitted to the hospital with progressive worsening c ognitive functioning and inability to ambulate and a large sacral decubital ulcer. He apparently suf fered a fall around December and on anticoagulation and subdural hematoma. He subsequently had a st roke that left him with lower extremity weakness and inability to ambulate. He did have physical the rapy and did recover somewhat, but he apparently suffered an additional stroke and has been nonambula tory and constantly showed a course of decline in his ability to call to make interaction and to mobi lize. His head CT scan on his admission yesterday did show a 6 mm low-density area in the left occip itoparietal region consistent with subacute infarct with a small amount of hemorrhage. The subsequen t MRI identified a mixed pattern of infarction involving the left parieto-occipital lobes. There is an acute infarction along the superior aspect of the left parietal lobe with a small amount of hemorr marielena and a subacute to chronic infarction seen along the superior boundary of the old infarction. Fu rthermore, the study indicated the presence of ventriculomegaly, which seems out of proportion to vol ume loss suggestive of normal-pressure hydrocephalus. His carotid artery ultrasound showed no hemody namically significant stenosis. He did have some issues of losing a bladder catheter, which was plac ed earlier today and it was replaced by Dr. Briggs. His family noted a 15-year history of enlarged ki dneys and that was evaluated further while hospitalized. Past Medical History: As indicated. Allergies: NO KNOWN DRUG ALLERGIES. Past Surgical History: PEG tube placement that actually was pulled at one point leading to hospitali zation and a Abarca catheter placement. Family History: Noncontributory. Social History: No alcohol, tobacco, or IV drug use. The patient resides in a [place] [facility]. Medications: Aspirin 325 mg daily, doxycycline 100 mg every 12 hours, hydralazine 50 mg 3 times a da y, metoprolol 100 mg twice daily, multivitamin daily, Pravachol 40 mg daily, and zinc 220 mg daily. He takes protein supplementation 30 mL daily, ascorbic acid 50 mg daily. Review of Systems: Unable to obtain. Patient is not verbally responsive. Physical Examination: Vital Signs: Blood pressure 124/64, pulse 106, respiratory rate 16, temperature 97.0, oxygen saturat ion 97%, weight 106 pounds, height 5 feet 11 inches, BMI 22.1. General: Mr. Jacques is resting in bed. He has a Abarca catheter replaced. He appears to be in no acu te distress. He does not follow commands, may open the eyes and may glance or groan when stimulated in the arms and legs. He does have significant venous stasis and contractures at the foot and legs. He holds the arm away when stimulated. He has slightly increased tone in the upper and lower extrem ities. Absent reflexes and unable to assess coordination or gait. Laboratory Studies: White blood cell count 6.2, hemoglobin 8.5. He did have a hemoglobin of 6.5 yes terday and now has had improvement after transfusion to 8.5, platelets 460. Chemistries show elevate d creatinine of 1.67, glucose elevated to 149, magnesium elevated 2.5. Liver function studies are no rmal. HDL cholesterol is 46, LDL cholesterol of 30. Procalcitonin 0.13. Urinalysis greater than 50 white blood cells, 20-50 bacteria, 3+ blood, 3+ esterase. Assessment: Mr. Jacques is an 83-year-old patient, who has multiple factors causing severe encephalopa thy, possible normal-pressure hydrocephalus, multiple strokes, chronic subdural hematoma, renal insuf ficiency, anemia, and a large decubital ulcer. Plan: 1.The patient is likely best served with hospice at this point. 2.Would not recommend high volume lumbar puncture, not likely to improve the patient's condition. 3.Just a small aspirin 81 mg daily and DVT prophylaxis provided by sequential compressive devices, a lthough may use low-dose heparin. 4.The patient will have an EEG to determine if there is any epileptiform activity given the evidence of bleeding, the hemorrhagic changes following the stroke. 5.The patient may be placed on antiepileptic medications if epileptiform activity is identified. Th e patient did have a PEG tube placed and that may be re-evaluated and re-considered given the recomme ndation for hospice as something that perhaps may not be done in the event that will be further discu ssed with the patient's family at some point. GEREMIAS/NIKIA Voice ID: [id number] Report ID: [id number]
[2019-04-25 04:27] LABS: Absolute Lymphocytes (CBC) 0.8 K/uL (0.7-4.9); Basophils % 1.3 % (0-1.3); Lymphocytes % 13.5 % (15.3-44.8)
[2019-04-25 04:42] LABS: Magnesium 2.5 mg/dL (1.8-2.4); Potassium 4.2 mmol/L (3.5-5.1)
[2019-04-25] MEDS: JEVITY 1.5 CAL LIQUID 1,000 ML BOT RTH SCH (06:41)
[2019-04-25] MEDS: FOLIC ACID 1 MG TABLET FT SCH (08:04)
[2019-04-25] MEDS: POLYETHYL GLY 3350 17 GM/DOSE FT SCH (08:05)
[2019-04-25] MEDS: ZINC SULFATE 220 MG CAP FT SCH (08:05)
[2019-04-25] MEDS: HYDRALAZINE HCL 25 MG TABLET FT SCH ×3 (08:05→21:05)
[2019-04-25] MEDS: METOPROLOL TAR 50 MG TAB FT SCH ×2 (08:05→21:05)
[2019-04-25] MEDS: ASCORBIC ACID 500 MG TABLET FT SCH (08:05)
[2019-04-25] MEDS: ASPIRIN 81 MG CHEWABLE TABLET FT SCH (08:05)
[2019-04-25] MEDS: MULTIVITAMINS 5 ML ORAL SYR FT SCH (08:06)
[2019-04-25] MEDS: JUVEN PACKET FT SCH ×2 (08:07→21:05)
[2019-04-25] MEDS: COLLAGENASE 30 GM OINTMENT TOP SCH (08:08)
--- NOTE | 2019-04-25 08:50 | P.PN ---
Subjective Date of Service: 04/25/19 Primary Care Provider: Dr. Izaguirre-[place] Chief Complaint: Direct admission Subjective: Other (Still confused) Physical Examination - Vital Signs Temperature: 97.5 F Blood Pressure: 132/64 Pulse: 109 Respirations: 16 Pulse Ox (%): 99 - Physical Exam General: Confused HEENT: Atraumatic Neck: Supple Respiratory: Clear to auscultation bilaterally, Normal air movement Cardiovascular: Irregular heart rate/rhythm (AFib rate fairly controlled) Gastrointestinal: Normal bowel sounds, Other (PEG tube in place) Neurological: Other (Still confused. Still not cooperative with commands) - Studies Laboratory Data (last 24 hrs) 04/25/19 03:42: WBC 5.9, Hgb 8.3 L, Hct 25.0 L, Plt Count 435 H 04/25/19 03:42: Sodium 141, Potassium 4.2, BUN 68 H, Creatinine 1.64 H, Glucose 165 H, Magnesium 2.5 H Microbiology Data (last 24 hrs): 04/23/19 18:53 Wound - Sacral Gram Stain - Final Medications List Reviewed: Yes Assessment & Plan Discharge Plan: Skilled Nursing (With hospice) Plan to discharge in: 24 Hours Physician Review Additional Text: Impression: Altered mental status likely severe encephalopathy related to mixed pattern of infarct involving the left parietal and occipital tissues; Small areas of acute infarct along the superior aspect of the involved left parietal tissues with noted small amount of hemorrhage; Subacute to chronic infarct changes same region; ventriculomegaly likely related to normal pressure hydrocephalus; and history of subdural hematoma status post nelson hole: Urinary retention status post urology placed catheter with prior history of hydronephrosis, traumatic catheter placement Sacral decubitus ulcer Atrial fibrillation not on chronic anti coagulation therapy Hypertension Hyperlipidemia Chronic renal disease History of PEG tube placement due to dysphagia Anemia of chronic disease Plan: Altered mental status likely severe encephalopathy related to mixed pattern of infarct involving the left parietal and occipital tissues; Small areas of acute infarct along the superior aspect of the involved left parietal tissues with noted small amount of hemorrhage; Subacute to chronic infarct changes same region; ventriculomegaly likely related to normal pressure hydrocephalus; and history of subdural hematoma status post nelson hole: MRI reviewed. Case discussed at length with daughter/Neurology yesterday. Case also discuss with infectious disease. EEG pending. Neurology recommends aspirin, folic acid, low- dose Lipitor and blood pressure control. Patient on DVT prophylaxis. Patient is DNR. Neurology and Infectious Disease recommends hospice. Will discuss further with daughter and family today. [facility]. Will need to further discuss about whether to stop tube feeds. Quality of life issues will be discussed in detail. Urinary retention status post urology placed catheter with prior history of hydronephrosis, traumatic catheter placement: Urology placed catheter yesterday. It had to be replaced again after placement. ACC be working properly at this time. Patient with history of hydronephrosis and traumatic catheter placement in the past. Will obtain more information. Sacral decubitus ulcer: Surgery has evaluated wound. No need for intervention. Continue with topical medication. Case also discuss with infectious disease. Considering CVA and encephalopathy likely no need for IV antibiotic treatment. Both recommend hospice. Atrial fibrillation not on chronic anti coagulation therapy: Continue with rate control medication. Patient previously on Coumadin. Patient not on chronic anti coagulation therapy due to history of subdural hematoma. Hypertension: Continue medication Hyperlipidemia: LDL well controlled. Continue with Lipitor 10 mg daily. Chronic renal disease: Continue to monitor closely. History of PEG tube placement due to dysphagia: Continue with PEG tube feeds. Will need to discuss plan of care with family if hospice is to be set up. Anemia of chronic disease: Will continue to monitor closely. Patient may require transfusion if hemoglobin drops below 7.0. Time Spent Managing Pts Care (In Minutes): 55
[2019-04-25] MEDS: ENOXAPARIN 30 MG/0.3 ML SQ SCH (16:05)
[2019-04-25] MEDS: ATORVASTATIN 10 MG TAB FT SCH (21:04)
[2019-04-26 00:33] VITALS: O2SAT 98
[2019-04-26 05:40] LABS: Absolute Lymphocytes (CBC) 0.8 K/uL (0.7-4.9); Hematocrit 24.4 % (39.6-49.0); Lymphocytes % 16.4 % (15.3-44.8); MPV 6.8 fL (7.6-11.3); RBC Red Blood Cell Count 2.69 M/uL (4.33-5.43)
[2019-04-26 06:04] LABS: Magnesium 2.4 mg/dL (1.8-2.4); Potassium 4.3 mmol/L (3.5-5.1)
[2019-04-26] MEDS: JUVEN PACKET FT SCH (09:00)
[2019-04-26] MEDS: COLLAGENASE 30 GM OINTMENT TOP SCH (09:00)
[2019-04-26] MEDS: ZINC SULFATE 220 MG CAP FT SCH (09:21)
[2019-04-26] MEDS: HYDRALAZINE HCL 25 MG TABLET FT SCH ×2 (09:21→14:00)
[2019-04-26] MEDS: ASPIRIN 81 MG CHEWABLE TABLET FT SCH (09:22)
[2019-04-26] MEDS: METOPROLOL TAR 50 MG TAB FT SCH (09:22)
[2019-04-26] MEDS: FOLIC ACID 1 MG TABLET FT SCH (09:22)
[2019-04-26] MEDS: MULTIVITAMINS 5 ML ORAL SYR FT SCH (09:22)
[2019-04-26] MEDS: POLYETHYL GLY 3350 17 GM/DOSE FT SCH (09:22)
[2019-04-26] MEDS: ASCORBIC ACID 500 MG TABLET FT SCH (09:22)
[2019-04-26] MEDS: ENOXAPARIN 30 MG/0.3 ML SQ SCH (17:00)
[2019-04-26 17:15] VITALS: BP 141/75; TEMP 97.2
--- NOTE | 2019-04-28 07:51 | ECHO ---
HEIGHT: 5 ft 11.5 in WEIGHT: 160 lb 14.4 oz DATE OF STUDY: 04/25/[address]: Yaniv Mora DO 2-DIMENSIONAL: YES M.MODE: YES DOPPLER: YES COLOR FLOW: YES TDS: NO PORTABLE: NO DEFINITY: NO BUBBLE STUDY: NO DIAGNOSIS: CEREBRAL VASCULAR ACCIDENT CARDIAC HISTORY: CATHERIZATION: NO SURGERY: NO PROSTHETIC VALVE: NO PACEMAKER: NO MEASUREMENTS (cm) DIASTOLIC (NORMALS) SYSTOLIC (NORMALS) IVSd 1.2 (0.6-1.2) LA Diam 3.7 (1.9-4.0) LVEF 55% LVIDd 4.3 (3.5-5.7) LVIDs 3.1 (2.0-3.5) %FS 28% LVPWd 1.2 (0.6-1.2) Ao Diam 3.1 (2.0-3.7) 2 DIMENSIONAL ASSESSMENT: RIGHT ATRIUM: NORMAL LEFT ATRIUM: NORMAL RIGHT VENTRICLE: NORMAL LEFT VENTRICLE: NORMAL TRICUSPID VALVE: NORMAL MITRAL VALVE: MITRAL ANNULAR CALCIFICATION PULMONIC VALVE: NORMAL AORTIC VALVE: STENOSIS PERICARDIAL EFFUSION: NONE AORTIC ROOT: NORMAL LEFT VENTRICULAR WALL MOTION: NORMAL DOPPLER/COLOR FLOW: MILD TRICUSPID REGURGITATION. COMMENTS: NORMAL LEFT VENTRICULAR SIZE AND FUNCTION. MILD TRICUSPID REGURGITATION. NORMAL RIGHT VENTRICULAR SYSTOLIC PRESSURE. MITRAL ANNULAR CALCIFICATION. MILD AORTIC STENOSIS. AORTIC VALVE AREA 1.6 CENTIMETERS SQUARED. NO THROMBUS. TECHNOLOGIST: Vanessa GARDNER
--- NOTE | 2019-04-28 08:56 | DS ---
Date of Discharge: 04/26/2019 Discharge Diagnoses: 1.Altered mental status secondary to severe encephalopathy related to mixed pattern of infarction an d bleeding left parieto-occipital tissue with normal-pressure hydrocephalus. 2.Urine retention with prior history of hydronephrosis, traumatic catheter placement. 3.Sacral decubitus ulcer. 4.Atrial fibrillation, anticoagulation. 5.Hypertension. 6.Hyperlipidemia. 7.Chronic renal insufficiency. 8.Dysphagia with PEG tube. 9.Anemia of chronic disease. 10.Confusion. Procedures: 1.A CT of the head done on the day of admission on the 15 showed a 6 mm low-density area within the left occipital parietal region containing area of increased density, probably some acute infarct with small amount of hemorrhage. Old left occipital left lobe infarct. Small chronic subdural hematoma along the right frontal convexity. 2.MRI of the brain showed small area of acute infarction along with involved left parieta l tissue. Small amount of hemorrhage in this region. For full report, please refer to the EMR. 3.Carotid Doppler done on the admission date showed. a.Moderate heart plaquing in both carotid pulse, greater on the left. b.No evidence of hemodynamically significant stenosis. 4.Ultrasound of the bladder showed no bladder wall thickening or mass. Consults: Dr. Briggs, Dr. Quan, Dr. Shahid. History Of Present Illness: Please refer to Dr. Mora' admission note. Hospital Course: The patient presented from the alf due to recommendation of Infectious Dis ease for debridement of large sacral decubitus ulcer getting worse that to be a ddressed and consider resection. Due to patient's confusion, a CT of the head was done on the day of admission given patient's altered mental status and confusion that CT showed a small area of old sub dural hematoma as well as 6 mm low-density area of left occipital parietal region containing area of increased density with subacute infarct and small amount of hemorrhage. Further workup done with MRI and carotid Doppler. Dr. Shahid from Neurology consulted. He advised the patient on hospice. He does not recommend volume lumbar puncture given that is not going to help the patient improve condit ion. He advised to discharge the patient on 81 mg of aspirin as well as SCD. He advised to proceed with EEG. We are not sure if it is done at this point or not because there is no report in the compu ter to see if there is any epileptical form activity given evidence of the bleeding and then after th at, he said that Dr. Shahid, he will decide if patient needs to be on anticonvulsion, so because th ere is no report over the weekend in the EMR and the patient is being discharged, I advised the patie nt to follow up with Dr. Shahid unless the family decide to take patient on hospice. In terms of p boo's large sacral decubital ulcer, Dr. Quan has seen the patient. He advised to use collagenase dressing, nutrition optimization, vitamins as needed, offloading and mattress as well as he also adv ised hospice. The patient as well had fluid retention so Dr. Briggs was consulted given patient's his tory of prior history of hydronephrosis and did place on the catheter last . During discussi on with daughter about hospice over multiple days, the daughter refused to place patient on hospice a nd she advised that patient will need DNR and she would like to take him to the nursing ho me do not resuscitate on private pay and she is trying to make a room in her house for him and she wi ll transfer him back to her house on hospice workup was done any further and patient was d ischarged to alf until the daughter able to take him home with her. Discharge Condition: Critical. Discharge Diet: On tube feeds. Discharge Activity: Bedridden. Physical Examination: Discharge Vital Signs: Blood pressure is 120/68, respiratory rate 18, pulse 86, temp is 97.5. General: Patient is alert but confused. Does not look in any distress. HEENT: Atraumatic, normocep halic. Neck: Supple. No JVD. Chest: Clear to auscultation. Good air entry. Heart: Irregular rate and rhythm. No gallop. Abdomen: Soft, nontender. No masses. PEG tube noted. Neurologic: Deferred as patient is still not cooperative and confused, in a part obtunded. Current Discharge Medications: Ascorbic acid 500 mg daily, aspirin 81 mg daily, collagenase topical, doxycycline q.12 hours, hydralazine 50 mg t.i.d., metoprolol 100 mg b.i.d., multivitamin daily, Joan LAX as needed, Pravachol 40 mg daily, zinc sulfate capsule daily. Consider an Lovenox at the alf for deep venous thrombosis prophylaxis as well. CASTILLO/NIKIA Voice ID: [id number] Report ID: [id number]
--- NOTE | 2019-04-30 13:27 | EEG ---
CHART: [id number] TEST ID#: [id number] DATE OF STUDY: 04/24/2019 THE EEG WAS RECORDED [place] IN THE PATIENTS ROOM ON A 17 CHANNEL MACHINE. ELECTRODES WERE APPLIED IN THE USUAL MANNER USING THE INTERNATIONAL 10-20 SYSTEM. THE WAKING BACKGROUND RHYTHM IN THIS RECORD CONSISTS OF POORLY DEVELOPED AND POORLY ORGANIZED WAVES OF 4-6 HZ., IN A WIDE DISTRIBUTION WHICH DO NOT ATTENUATE NORMALLY WITH EYE OPENING. THERE ARE NO FOCAL OR LATERALIZING FEATURES. NO EPILEPTIFORM ACTIVITY APPEARS. SLEEP OCCURRED NATURALLY. IN ADDITION NORMAL SLEEP PATTERNS ARE PRESENT. HYPERVENTILATION WAS NOT PERFORMED. PHOTIC STIMULATION PRODUCED NO DRIVING BILATERALLY. IMPRESSION: THIS IS A MODERATELY ABNORMAL EEG DUE TO A MODERATELY SLOW BACKGROUND. THIS IS A NON-SPECIFIC FINDING CONSISTENT WITH A MODERATE DIFFUSE DISTURBANCE IN CEREBRAL FUNCTION.
== END 2019-04-26 18:26 | DRG 65 ==
LOC: 4TH 14:52
PROVIDERS: ADMIT Family Medicine; ATTEND Internal Medicine
PROC: 0T9B80Z Drainage of Bladder with Drainage Device, Via Natural or Artificial Opening Endoscopic (ICD-10-PCS; principal; 2019-04-24)
DX: I63.9 Cerebral infarction, unspecified (principal); E44.1 Mild protein-calorie malnutrition; I48.20 Chronic atrial fibrillation, unspecified; G93.40 Encephalopathy, unspecified; L89.150 Pressure ulcer of sacral region, unstageable; I10 Essential (primary) hypertension; G30.9 Alzheimer's disease, unspecified; F02.80 Dementia in other diseases classified elsewhere, unspecified severity, without behavioral disturbance, psychotic disturbance, mood disturbance, and anxiety; E78.5 Hyperlipidemia, unspecified; D63.8 Anemia in other chronic diseases classified elsewhere; R33.9 Retention of urine, unspecified; Z93.1 Gastrostomy status; Z74.01 Bed confinement status; Z86.73 Personal history of transient ischemic attack (TIA), and cerebral infarction without residual deficits; Z79.01 Long term (current) use of anticoagulants
CPT/HCPCS: 36415; 70450; 70551; 71045; 76857; 80048; 80053; 80061; 80202; 81003; 81015; 82607; 82728; 82947; 83540; 83735; 84145; 84466; 85014; 85018; 85025; 85610; 85730; 86850; 86900; 86901; 87040; 87070; 87077; 87086; 87088; 87186; 87205; 93306; 93880; 95819; J0692; J1650; J3590; J7030